=== PATIENT | male | born 1950 | race Caucasian/White ===

== ENCOUNTER 2019-05-21 14:13 | Inpatient (IN) | payer MEDICARE, SELFPAY ==
[2019-05-21] VITALS (9 sets, daily range): BP systolic 114–126; BP diastolic 59–81; PULSE 100–116; RESP 15–26; TEMP 36.6–37.8; O2SAT 92–96; BMI 22.6
--- NOTE | ~2019-05-21 | CT_ITS ---
EXAMINATION: CT abdomen pelvis w con EXAM DATE: 05/21/2019 19:53 INDICATION: Low abdominal pain, diverticulitis. TECHNIQUE: Spiral CT of the abdomen and pelvis was performed following intravenous injection of 100 m L Omnipaque 350. Axial, coronal and sagittal images were reviewed. The dose-length product (DLP) fo r this examination was 549.44 mGy-cm. The exposure was tailored according to patient size (auto mA e xposure control), and iterative reconstruction (ASIR) was used as additional dose reduction technique . Comparison is made to prior examination from 07/12/2012. FINDINGS: Benign subcentimeter right liver lobe hypodensity not significantly changed. Spleen, pancre as, adrenal glands are unremarkable. Gallbladder is unremarkable. No biliary obstruction. Portal a nd splenic veins are patent. Kidneys enhance symmetrically. There is no hydronephrosis. Multiple kim bcentimeter kidney hypodensities consistent with cysts. The prostate is unremarkable. The bladder i s unremarkable. There is no retroperitoneal or pelvic lymphadenopathy. There is mild to moderate s cattered arteriosclerotic disease. Small umbilical fat-containing hernia. There is moderate sigmoid diverticulosis with extensive adjacent inflammation and small foci of gas w ithin the mesentery, consistent with microperforation. No rim-enhancing drainable abscess. The append ix is normal. There is small sliding gastroesophageal hiatal hernia. There is expected amount of co lonic stool. The heart is normal in size. There are no pericardial or pleural effusions. The lung bases are unremarkable. There are no osteoblastic or osteolytic lesions identified. IMPRESSION: 1. Acute sigmoid diverticulitis with microperforation. 2. There is basilar subsegmental atelectasis. Reviewed, dictated and finalized at location A.
--- NOTE | ~2019-05-21 | CT_ITS ---
EXAMINATION: CT abdomen pelvis w con INDICATION: Perforated sigmoid diverticulitis with increasing leukocytosis in the face of antibiotics TECHNIQUE: Computed tomographic images of the abdomen and pelvis were obtained after the administrati on of 100 cc of Omnipaque 350 intravenous contrast. The dose-length product (DLP) was 452.65 mGy-cm. Automated exposure control and iterative reconstruction technique were employed. COMPARISON: 05/21/2019 07/12/2012 FINDINGS: Minimal dependent atelectasis is present in the lung bases. The heart size is normal. There is a moderate-sized sliding hiatal hernia. A 9 mm low-attenuation of the right hepatic lobe is not s ignificantly changed since 2012, most consistent with a benign lesion. The spleen, pancreas, gallblad albert, and adrenal glands are normal. Cysts of the kidneys measure up to 12 mm on the right. Again note d are diverticula of the sigmoid colon with an area of wall thickening in the mid sigmoid colon. Ther e is an approximately 4.3 x 3.2 cm gas-containing perisigmoid fluid collection. Edematous stranding o f the perisigmoid fat and adjacent to the fluid collection has increased. An approximately 5.2 x 1.9 cm bilobed fluid collection is seen at the anterior/superior aspect of the urinary bladder. Additiona l smaller adjacent pelvic fluid collections are noted. There is mild retroperitoneal lymphadenopathy which may be reactive. The appendix is normal. There is calcified atherosclerosis of the aorta and ma ny of the other arteries. There is severe lumbar spondylosis. IMPRESSION: 1. Perforated sigmoid diverticulitis with development of a perisigmoid abscess and several smaller ad jacent pelvic abscesses. Reviewed, dictated and finalized at location A. IMPRESSION: 1. Perforated sigmoid diverticulitis with development of a perisigmoid abscess and several smaller adjacent pelvic abscesses.
--- NOTE | ~2019-05-21 | CT_ITS ---
EXAMINATION: CT guide absc cath placement DATE: 05/28/2019 14:32 INDICATION: Peritoneal abscess along the sigmoid colon. TECHNIQUE: The procedure including the risks and benefits was discussed with the patient. Risks discu ssed included bleeding and infection. The patient understood the risks and benefits and agreed to pro ceed. The patient was confirmed to be receiving appropriate antibiotic coverage. The skin overlying the abdomen was prepped and draped in usual sterile fashion. Anesthetic was administered with 1% lid ocaine subcutaneously. Utilizing Seldinger technique an 18-gauge trocar guide needle was inserted int o peritoneal gas and fluid containing abscess in the right hemipelvis utilizing CT guidance. The troc ar was removed and a J-wire advanced through the needle into the fluid collection with appropriate po sitioning within the fluid collection confirmed with CT images. The guide needle was removed over the wire, the tract serially dilated from 6 Fr to 10 Fr and a 10 Fr venous catheter placed. Following co nfirmation of positioning by CT the the pigtail tip was locked and the wire was removed. The catheter was stitched to the skin with suture. Antibiotic ointment and a sterile dressing were applied. Follo wing collection of a sample for Gram stain and cultures, the catheter was attached to suction drainag e. There were no immediate complications. The dose-length product was 167.72 mGy-cm. FINDINGS: CT images demonstrate the catheter within the loculated gas and fluid collection in the rig ht hemipelvis. 18 mL opaque pinkish-pfeiffer fluid fluid was aspirated for testing. IMPRESSION: 1. Successful CT-guided abscess drainage. 2. 18 mL fluid was sent for aerobic and anaerobic cultures. 3. The catheter will be managed by Dr. Cleveland. Reviewed, dictated and finalized at location A.
[2019-05-21 14:46] LABS: Hematocrit 45.2 % (42.0-52.0); Hemoglobin 14.6 g/dL (14.0-18.0); Mean Corpuscular HGB Conc 32.3 g/dl (32-36); Mean Platelet Volume 10.6 fl (7.4-10.4); Platelet Count Result 199 k/mm3 (150-375); Red Blood Count 4.86 M/mm3 (4.6-6.20); Red Cell Distribution Width 13.4 % (11.5-14.5); White Blood Count 28.2 K/mm3 (4.5-10.0)
[2019-05-21 14:59] LABS: Alanine Aminotransferase 27 U/L (4-50); Albumin Level 4.3 g/dL (3.5-5.1); Alkaline Phosphatase 73 U/L (38-126); Aspartate Amino Transferase 23 U/L (17-59); Bilirubin,Total 0.9 mg/dL (0.2-1.3); Blood Urea Nitrogen 21 mg/dL (9-20); Calcium 8.8 mg/dL (8.4-10.2); Carbon Dioxide 29 mmol/L (22-30); Chloride 97 mmol/L (98-107); Estimated CRCL calculation 60 ml/min; Estimated Glomerular Filt Rate 60; Glucose 124 mg/dL (75-110); Lipase 22 U/L (23-300); Potassium 3.8 mmol/L (3.4-5.0); Sodium 134 mmol/L (137-145)
[2019-05-21 15:18] LABS: Band Neutrophils Percent 6 % (0-6); Lymphocytes Absolute Manual 3.66 K/mm3 (1.1-4.5); Monocytes Absolute Manual 0.84 K/mm3 (0.1-0.90); Monocytes Percent Manual 3 % (3-9); Neutrophils Absolute Manual 23.68 K/mm3 (1.3-6.7); Neutrophils Percent Manual 78 % (46-73); Platelet Estimate Adequate (Adequate); Total Cells Counted 100
--- NOTE | 2019-05-21 18:58 | ED.ABDPAIN ---
HPI - Abdominal Pain General Chief Complaint: Abdominal Pain Stated Complaint: stomach ache Time Seen by Provider: 05/21/19 18:57 History of Present Illness HPI narrative: Pt is a 69 y/o male who presents to the ED with c/o lower abdominal pain that began a week ago. He notes that his pain initially began in his RLQ abdomen. Pt reports a similar episode. Pt also reports chills and nausea, but denies fever and vomiting. MD elicited complaint: abdominal pain Onset (ago): week(s) (1) Pain Consistency: constant Location: other (lower) Associated symptoms: nausea and chills Related Data Home Medications Medication Instructions Recorded Confirmed aspirin 81 mg PO DAILY 05/21/19 05/21/19 diltiazem HCl 30 mg PO QID 05/21/19 05/21/19 isosorbide mononitrate 60 mg PO DAILY 05/21/19 05/21/19 metoprolol tartrate 25 mg PO BID 05/21/19 05/21/19 nitroglycerin [Nitrostat] 0.4 mg SUBLINGUAL ONCE PRN 05/21/19 05/21/19 prednisone 2.5 mg PO DAILY 05/21/19 05/21/19 Allergies Allergy/AdvReac Type Severity Reaction Status Date / Time No Known Allergies Allergy Verified 05/22/19 15:27 Review of Systems Review of Systems: All systems reviewed & are unremarkable except as noted in HPI and below Constitutional: Constitutional: Reports chills and Denies fever(s) Gastrointestinal: Gastrointestinal: Reports abdominal pain (lower), Reports nausea and Denies vomiting PMFSH Past Medical History Medical History GERD (gastroesophageal reflux disease) History of angina Hyperlipidemia Myocardial infarction Rheumatoid arthritis Treated with Remicade infusions and takes daily low-dose prednisone. Surgical History Surgical History H/O colonoscopy History of cardiac catheterization Hx of CABG triple bypass Family History Family History Mother Carcinoma of colon Father Family history of malignant melanoma Sibling Acute myocardial infarction Social History Social History (System 05/22/19 @ 15:27 by Chitra Mitchell) Smoking status: Light tobacco smoker Alcohol intake: current Substance use: never Living arrangements: alone Occupation/Education: retired Gender identity (if verbalized by the patient): Male Spiritual care concerns: No Agree to blood products: Yes Exam Narrative: Exam Narrative: General appearance: Well-developed, well-nourished, no family member at the bedside Skin: Normal color Head: Normocephalic, nontraumatic Eyes: Clear conjunctiva ENT: Oropharynx normal, ears normal, nose normal Neck: Supple, nontender Chest and respiratory: Airway patent, no respiratory distress, no accessory muscle use Heart: Regular rate/rhythm Abdomen: Soft, diffuse generalized tenderness, distention, no organomegaly, quiet bowel sounds Vascular: Normal peripheral pulses, normal capillary refill. Musculoskeletal: Normal range of motion, nontender back Neurologic: Alert and oriented ?3, FAMILY SUPPORT SPECIALIST is normal as tested, no gross motor deficit Course Course Emergency Course: Improving/stable Consultations Consultation #1: Discussed case with Dr. Carlin (Hospitalist). Accepts admission. Date: 05/21/19 Time: 20:30 Vital Signs Vital signs: Vital Signs Temperature 37.7 C H 05/21/19 14:28 Pulse Rate 115 H 05/21/19 14:28 Respiratory Rate 18 05/21/19 14:28 Blood Pressure 120/65 05/21/19 14:28 Pulse Oximetry 93 05/21/19 14:28 Temperature 36.8 C 05/24/19 06:00 Pulse Rate 84 05/24/19 10:18 Respiratory Rate 18 05/24/19 08:00 Blood Pressure 115/73 05/24/19
[2019-05-21 19:12] LABS: Add Urine Microscopic? YES; Appearance Urine Clear (Clear); Bacteria Urine Trace /hpf; Bilirubin Urine Negative (Negative); Blood Urine 3+ (Negative); Color Urine Yellow (Yellow); Glucose Urine UA Negative (Negative); Ketones Urine Negative (Negative); Leukocyte Esterase Ur Negative LEU/UL (Negative); Mucus Urine Heavy /lpf; Nitrate Urine Negative (Negative); Protein Urine Negative (Negative); Specific Grav Ur 1.025 (1.001-1.035); Urobilinogen Urine Negative mg/dL (<2.0); WBC Urine 0-3 /hpf
[2019-05-21] MEDS: ONDANSETRON INJ 4 MG/2 ML VIAL IV PUSH (19:16)
[2019-05-21] MEDS: HYDROMORPHONE HCL 1 MG/ML INJ 0.5 MG IV PUSH (19:17)
[2019-05-21] MEDS: SODIUM CHLORIDE 0.9% IV 1,000 ML 999 ML IV CONT (19:19)
--- NOTE | 2019-05-21 19:37 | PC.NURSE ---
assumed care of pt at this time. report from RICHARD rain
--- NOTE | 2019-05-21 19:47 | PC.NURSE ---
pt down to ct
--- NOTE | 2019-05-21 19:57 | PC.NURSE ---
pt reports cp on the left side of there chest. pt reports squeezing and rates pain at a 4 edp notified no further orders at this time.
--- NOTE | 2019-05-21 20:30 | PC.NURSE ---
pt placed on 2.0 L NC due to pulse ox being 88%
--- NOTE | 2019-05-21 22:35 | ADMGEN ---
This patient, Tomy Castellanos, was admitted to [facility] Surg Room 300-01. Patient/family oriented to hospital policies and general routines including ID bracelet, bed and alarms, visiting hours, pain management, procedures, bathroom and other care routines, personal items, smoking policy, room service/diet, and visiting hours. Valuables list has been completed. Information on how to activate the Rapid Response Team has been discussed. Patient/Family are encouraged to report perceived risks to care and to ask questions if they do not understand what they are told or what they should do.
[2019-05-21] MEDS: LACTATED RINGERS 1,000 ML 150 ML IV CONT (22:42)
[2019-05-22] MEDS: LACTATED RINGERS 1,000 ML 150 ML IV CONT ×2 (05:18→12:28)
[2019-05-22 06:00] VITALS: BP 117/65; PULSE 100; RESP 16; TEMP 37.2; O2SAT 96
[2019-05-22 06:15] LABS: Basophils Percent Auto 0.2 % (0.2-1.2); Hematocrit 42.3 % (42.0-52.0); Hemoglobin 13.2 g/dL (14.0-18.0); Immature Granulocyte Absolute 0.17 K/mm3 (0.00-0.031); Immature Granulocyte Percent A 0.7 % (0-0.5); Lymphocytes Absolute Auto 2.55 K/mm3 (0.9-3.2); Mean Corpuscular HGB Conc 31.2 g/dl (32-36); Mean Corpuscular Hemoglobin 29.3 pg (26-34); Mean Platelet Volume 11.1 fl (7.4-10.4); Monocytes Absolute Auto 1.2 K/mm3 (0.1-0.6); Monocytes Percent Auto 5.3 % (2.6-8.5); Neutrophils Absolute Auto 19.2 K/mm3 (1.3-6.7); Neutrophils Percent Auto 82.8 % (45.5-73.1); Platelet Count Result 172 k/mm3 (150-375); Red Cell Distribution Width 13.5 % (11.5-14.5); White Blood Count 23.2 K/mm3 (4.5-10.0)
--- NOTE | 2019-05-22 12:47 | PM.IMHP ---
H&P: HPI History of Present Illness Chief complaint: perforated diverticulitis leukocytosis Narrative: Date and Time of Service of History & Physical: May 22, 2019 at 12:25 p.m.. Date and Time of Admission Order: May 21, 2019 at 9:00 p.m.. Chief Complaint: Abdominal pain x1 week with nausea, vomiting and fever. History of Present Illness: Tomy Castellanos is a 69 year old male with known coronary artery disease, hyperlipidemia, rheumatoid arthritis and previous history of diverticulitis who presented to the emergency room with 1 week history of right lower quadrant abdominal pain. Patient reports pain was initially intermittent. Pain worsened over the last week particularly this past Tuesday, Tuesday and Tuesday. Patient reports pain was so severe he decided come in to the emergency room. He did note dry heaves on Tuesday. He has not had a bowel movement this past . He does report fever up to 100.0. No urinary symptoms. He does mention having had 2 previous episodes of diverticulitis as an outpatient with the last being within the last 2 years. Pain is still present now but no current nausea or vomiting. No chest pain. No shortness of breath. No urinary symptoms. No headache or dizziness. Review of Systems Review of Systems: All systems reviewed & are unremarkable except as noted in HPI and below Constitutional: Constitutional: Reports fever(s) Eyes: Eyes: Denies blurry vision and Denies diplopia ENT: Denies dysphagia, Denies nasal congestion and Denies nasal discharge Cardiovascular: Cardiovascular: Denies chest pain Respiratory: Respiratory: Denies dyspnea Gastrointestinal: Gastrointestinal: Reports abdominal pain (RLQ), Denies diarrhea, Reports nausea and Reports vomiting Genitourinary: Genitourinary: Denies hematuria, Denies dysuria and Denies urinary frequency Musculoskeletal: Musculoskeletal: Reports no additional musculoskeletal complaints Integumentary/Breasts: Skin/Breast: Denies rash Neurologic: Denies headache(s) Psychiatric: Psychiatric: Denies anxiety, Denies confusion and Denies depression Endocrine: Endocrine: Reports no additional endocrine complaints Hematologic/Lymphatic: Hematologic/Lymphatic: Reports no additional hematologic/lymphatic complaints Allergic/Immunologic: Allergic/Immunologic: Reports no additional allergic/immunologic complaints [facility] Past Medical History Medical History GERD (gastroesophageal reflux disease) History of angina Hyperlipidemia Myocardial infarction 2007 Rheumatoid arthritis Surgical History Surgical History H/O colonoscopy History of cardiac catheterization Hx of CABG triple bypass Family History Family History Mother Carcinoma of colon Father Family history of malignant melanoma Sibling Acute myocardial infarction Social History Social History Social History: Patient is . He is a full code. He is a former smoker but cannot tell me how much or for how long he smoked. He also has previous alcohol use but will not quantify. Smoking status: Former smoker Tobacco type: cigarettes Smoking end date: 03/14/14 Alcohol intake: former Substance use: never Living arrangements: alone Occupation/Education: retired Additional occupation/education comments: He is retired from [employer]. Gender identity (if verbalized by the patient): Male Spiritual care concerns: No Agree to blood products: Yes Meds Home Medications and Allergies Home Medications Medication Instructions Recorded Confirmed Type aspirin 81 mg PO DAILY 05/21/19 05/21/19 History diltiazem HCl 30 mg PO QID 05/21/19 05/21/19 History isosorbide mononitrate 60 mg PO DAILY 05/21/19 05/21/19 History metoprolol ta
[2019-05-22 14:00] VITALS: BP 118/65; PULSE 104; RESP 16; TEMP 37.6; O2SAT 93
--- NOTE | 2019-05-22 14:34 | PM.CNGS ---
Assessment and Plan Assessment and plan (1) Diverticulitis of colon with perforation: Qualifiers: Diverticulitis bleeding: unspecified bleeding status Qualified Code(s): K57.20 - Diverticulitis of large intestine with perforation and abscess without bleeding Code(s): K57.20 - Diverticulitis of large intestine with perforation and abscess without bleeding Status: Acute Assessment and Plan: CT scan reviewed and discussed with the patient. He has evidence sigmoid diverticulitis with micro perforation. This is his 3rd episode of diverticulitis, with the most recent episode over 2 and half years ago. The patient seems to be clinically improving with current treatment. Would continue with IV antibiotics, IV fluids, and analgesics at this time. Will keep the patient NPO on bowel rest for today and reassess him tomorrow. I discussed the pathophysiology of this disease process with the patient. No indication for urgent surgical intervention at this time. Although, we do need to consider that he is at risk for impaired healing and worsening infection due to the immunosuppressant therapy. I discussed with the patient that at times if this does not improve with antibiotic therapy, then he may require a sigmoidectomy more urgently, which would put him at a higher risk for an ostomy. We will continue to monitor the patient with serial abdominal exams, labs, and imaging if needed. Considering he has not had a colonoscopy in at least 5 years and has a family history of colon cancer with now an acute episode of diverticulitis, this patient would benefit from a colonoscopy once the acute diverticulitis has healed in about 4-6 weeks. Plan was discussed with the patient and all questions were answered. Thank you for allowing me to evaluate the patient in consultation and we will continue to follow along with you. (2) Long-term use of immunosuppressant medication: Code(s): Z79.899 - Other terminal superintendent (current) drug therapy Status: Acute Assessment and Plan: Last Remicade infusion was 2 weeks ago. This may affect how he responds to the current treatment, but hopefully he continues to improve. Continue to hold the low-dose prednisone for now. (3) Rheumatoid arthritis: Qualifiers: Rheumatoid arthritis location: unspecified site Rheumatoid factor presence: unspecified presence Qualified Code(s): M06.9 - Rheumatoid arthritis, unspecified Code(s): M06.9 - Rheumatoid arthritis, unspecified Status: Acute (4) CAD (coronary artery disease): Qualifiers: Associated angina: without angina Coronary Disease-Associated Artery/Lesion type: [place] artery [place] vs. transplanted heart: [place] heart Qualified Code(s): I25.10 - Atherosclerotic heart disease of [place] coronary artery without angina pectoris Code(s): I25.10 - Atherosclerotic heart disease of [place] coronary artery without angina pectoris Status: Acute (5) Leukocytosis: Qualifiers: Leukocytosis type: unspecified Qualified Code(s): D72.829 - Elevated white blood cell count, unspecified Code(s): D72.829 - Elevated white blood cell count, unspecified Status: Acute Assessment and Plan: Due to diverticulitis as mentioned above. WBC down to 23,200 today. Continue IV abx. (6) Hyperlipidemia: Code(s): E78.5 - Hyperlipidemia, unspecified Status: Acute (7) GERD (gastroesophageal reflux disease): Qualifiers: Esophagitis presence: esophagitis presence not specified Qualified Code(s): K21.9 - Gastro-esophageal reflux disease without esophagitis Code(s): K21.9 - Gastro-esophageal reflux disease without esophagitis Status: Acute Additional Plan Discussed the patient's case and plan of care with Dr. Cleveland. History of Present Illness Consult details Consult date: 05/22/19 Reason for consult: other (Sigmoid diverticulitis with microperforation) Requesting ph
[2019-05-22] MEDS: FAMOTIDINE 20 MG/2 ML VIAL IV PUSH ×2 (14:56→21:45)
[2019-05-22] MEDS: LACTATED RINGERS 1,000 ML 100 ML IV CONT (21:42)
[2019-05-22 22:00] VITALS: BP 120/75; PULSE 99; RESP 16; TEMP 37.2; O2SAT 91
[2019-05-23 06:00] VITALS: BP 118/70; PULSE 88; RESP 16; TEMP 36.8; O2SAT 93
[2019-05-23 06:11] LABS: Basophils Absolute Auto 0.1 K/mm3 (0.0-0.1); Basophils Percent Auto 0.3 % (0.2-1.2); Eosinophils Absolute Auto 0.1 K/mm3 (0-0.3); Eosinophils Percent Auto 0.4 % (0-4.4); Hematocrit 41.7 % (42.0-52.0); Hemoglobin 13.3 g/dL (14.0-18.0); Immature Granulocyte Absolute 0.07 K/mm3 (0.00-0.031); Immature Granulocyte Percent A 0.4 % (0-0.5); Lymphocytes Absolute Auto 2.43 K/mm3 (0.9-3.2); Lymphocytes Percent Auto 12.8 % (18.3-44.2); Mean Corpuscular HGB Conc 31.9 g/dl (32-36); Mean Corpuscular Hemoglobin 29.9 pg (26-34); Mean Corpuscular Volume 93.7 fl (80-100); Mean Platelet Volume 11.7 fl (7.4-10.4); Monocytes Absolute Auto 1.2 K/mm3 (0.1-0.6); Monocytes Percent Auto 6.3 % (2.6-8.5); Neutrophils Absolute Auto 15.2 K/mm3 (1.3-6.7); Neutrophils Percent Auto 79.8 % (45.5-73.1); Platelet Count Result 170 k/mm3 (150-375); Red Blood Count 4.45 M/mm3 (4.6-6.20); Red Cell Distribution Width 13.2 % (11.5-14.5)
[2019-05-23 07:35] LABS: Alanine Aminotransferase 20 U/L (4-50); Albumin Level 3.3 g/dL (3.5-5.1); Alkaline Phosphatase 115 U/L (38-126); Aspartate Amino Transferase 32 U/L (17-59); Bilirubin,Total 0.9 mg/dL (0.2-1.3); Blood Urea Nitrogen 15 mg/dL (9-20); Calcium 8.3 mg/dL (8.4-10.2); Carbon Dioxide 27 mmol/L (22-30); Chloride 100 mmol/L (98-107); Estimated CRCL calculation 77 ml/min; Estimated Glomerular Filt Rate > 60; Glucose 81 mg/dL (75-110); Potassium 3.7 mmol/L (3.4-5.0); Sodium 132 mmol/L (137-145)
[2019-05-23] MEDS: LACTATED RINGERS 1,000 ML 100 ML IV CONT ×2 (08:09→16:51)
[2019-05-23] MEDS: FAMOTIDINE 20 MG/2 ML VIAL IV PUSH ×2 (08:10→20:07)
--- NOTE | 2019-05-23 11:49 | PM.PNGS ---
Progress Note: A&P Assessment and Plan (1) Diverticulitis of colon with perforation: Qualifiers: Diverticulitis bleeding: unspecified bleeding status Qualified Code(s): K57.20 - Diverticulitis of large intestine with perforation and abscess without bleeding Code(s): K57.20 - Diverticulitis of large intestine with perforation and abscess without bleeding Status: Acute Assessment and Plan: Patient is clinically improving. Bowels are moving. WBC down to 19,000 and afebrile today. Pain is less, but still pretty tender on exam. Will allow the patient to have clear liquids today. Continue IV antibiotics. Encouraged ambulation in the halls. (2) Long-term use of immunosuppressant medication: Code(s): Z79.899 - Other predatory animal exterminator (current) drug therapy Status: Acute Assessment and Plan: Last Remicade infusion was 2 weeks ago. This may affect how he responds to the current treatment, but hopefully he continues to improve. Continue to hold the low-dose prednisone for now. (3) Rheumatoid arthritis: Qualifiers: Rheumatoid arthritis location: unspecified site Rheumatoid factor presence: unspecified presence Qualified Code(s): M06.9 - Rheumatoid arthritis, unspecified Code(s): M06.9 - Rheumatoid arthritis, unspecified Status: Acute (4) CAD (coronary artery disease): Qualifiers: Coronary Disease-Associated Artery/Lesion type: [place] artery [place] vs. transplanted heart: [place] heart Associated angina: without angina Qualified Code(s): I25.10 - Atherosclerotic heart disease of [place] coronary artery without angina pectoris Code(s): I25.10 - Atherosclerotic heart disease of [place] coronary artery without angina pectoris Status: Acute (5) Leukocytosis: Qualifiers: Leukocytosis type: unspecified Qualified Code(s): D72.829 - Elevated white blood cell count, unspecified Code(s): D72.829 - Elevated white blood cell count, unspecified Status: Acute Assessment and Plan: Due to diverticulitis as mentioned above. WBC down to 23,200 today. Continue IV abx. (6) Hyperlipidemia: Code(s): E78.5 - Hyperlipidemia, unspecified Status: Acute (7) GERD (gastroesophageal reflux disease): Qualifiers: Esophagitis presence: esophagitis presence not specified Qualified Code(s): K21.9 - Gastro-esophageal reflux disease without esophagitis Code(s): K21.9 - Gastro-esophageal reflux disease without esophagitis Status: Acute Additional Plan Discussed the patient's case and plan of care with Dr. Cleveland. Subjective Subjective Date/Time Seen: 05/23/19 11:49 Patient reports: no new complaints, feels better, pain is less, flatus and bowel movement Interval history: Patient seen and examined. Reports feeling well today. Pain has improved and he reports for the first time in days he is able to sit up without abdominal pain. Reports lots of flatus with a small formed BM this morning. Denies nausea or vomiting. Tolerating the clear liquid tray he had this morning. Reports bloating has improved. No other complaints at this time. Review of Systems Review of Systems: All systems reviewed & are unremarkable except as noted in HPI and below Exam Const: General: cooperative, comfortable, no acute distress and alert Orientation/consciousness: patient oriented x3 GI: Inspection: normal to inspection and non-distended GI Palp: Yes Soft to palpation, Yes Tenderness to palpation present (GI) (lower abdomen, but reportedly less tender), Yes Guarding due to palpation present (GI) (lower abdomen), No Hernia present, No Palpable mass present and No Rebound tenderness present Auscultation: normal bowel sounds Skin: General skin exam: normal color Neuro: General: no focal motor deficits Extrem: General: normal to inspection, capillary refill normal, no clubbing, cyanosis or edema, no calf tenderness and no edema Objec
--- NOTE | 2019-05-23 11:58 | PCNSR ---
On 05/23/19, the student, Claudia Lebron, provided care and completed [facility] documentation on this patient. I have reviewed the student's documentation and agree with the findings.
--- NOTE | 2019-05-23 13:11 | PM.IMPN ---
Progress Note: A&P Assessment and Plan (1) Diverticulitis of colon with perforation: Qualifiers: Diverticulitis bleeding: unspecified bleeding status Qualified Code(s): K57.20 - Diverticulitis of large intestine with perforation and abscess without bleeding Code(s): K57.20 - Diverticulitis of large intestine with perforation and abscess without bleeding Status: Acute Assessment and Plan: CT scan abdomen/pelvis with acute sigmoid diverticulitis with microperforation. Moderate amount of sigmoid diverticulosis is noted. General surgery consulted and appreciate input. Started on clear liquids today. Remains on IV Zosyn. WBC is decreased to 19.0 today. Continue IV Dilaudid as needed for pain. Continue to monitor. (2) CAD (coronary artery disease): Qualifiers: Associated angina: without angina Coronary Disease-Associated Artery/Lesion type: [place] artery [place] vs. transplanted heart: [place] heart Qualified Code(s): I25.10 - Atherosclerotic heart disease of [place] coronary artery without angina pectoris Code(s): I25.10 - Atherosclerotic heart disease of [place] coronary artery without angina pectoris Status: Acute Assessment and Plan: Remains stable without current acute symptoms. Blood pressure still low normal. Will continue to hold Imdur, diltiazem and metoprolol for now. Continue to hold ASA. Will monitor. Restart medications if and when needed. (3) GERD (gastroesophageal reflux disease): Qualifiers: Esophagitis presence: esophagitis presence not specified Qualified Code(s): K21.9 - Gastro-esophageal reflux disease without esophagitis Code(s): K21.9 - Gastro-esophageal reflux disease without esophagitis Status: Acute Assessment and Plan: Continue IV Pepcid. (4) Rheumatoid arthritis: Qualifiers: Rheumatoid arthritis location: unspecified site Rheumatoid factor presence: unspecified presence Qualified Code(s): M06.9 - Rheumatoid arthritis, unspecified Code(s): M06.9 - Rheumatoid arthritis, unspecified Status: Acute Assessment and Plan: On very low-dose prednisone 2.5 mg daily. Will continue to hold for now. If needed, can give IV steroids. (5) DVT prophylaxis: Code(s): Z29.9 - Encounter for prophylactic measures, unspecified Status: Acute Assessment and Plan: SCDs. Time Spent With Patient Time with patient: 15 - 25 minutes Subjective Date/time seen: 05/23/19 13:11 Interval history: Date of Service: 05/23/2019. Admitted diverticulitis with microperforation. Doing better today. Still has some abdominal pain. No nausea or vomiting. No chest pain. No shortness of breath. Review of Systems Review of Systems: Narrative: Feeling better. ENT: Denies dysphagia Cardiovascular: Cardiovascular: Denies chest pain Respiratory: Respiratory: Denies dyspnea Gastrointestinal: Gastrointestinal: Reports abdominal pain (Decreasing), Denies nausea and Denies vomiting Genitourinary: Genitourinary: Reports no additional male genitourinary complaints Musculoskeletal: Musculoskeletal: Reports no additional musculoskeletal complaints Integumentary/Breasts: Skin/Breast: Denies rash Neurologic: Denies headache(s) Psychiatric: Psychiatric: Denies anxiety and Denies depression Exam Narrative: Exam Narrative: Awake and alert. Const: General: no acute distress HENMT: Mouth: Yes moist mucous membranes Neck: Neck: supple Lymphatic: lymphadenopathy not noted Resp: Auscultation: clear to auscultation bilaterally, no rales and no wheezes Cardio: Rate: regular rate Rhythm: regular rhythm GI: Inspection: non-distended GI Palp: Yes Soft to palpation and Yes Tenderness to palpation present (GI) (RLQ > LLQ) Auscultation: normal bowel sounds Skin: General skin exam: normal color Neuro: Cognition (Neuro): normal cognition Speech: normal speech Extrem: General: no edema
[2019-05-23 14:00] VITALS: BP 102/65; PULSE 100; RESP 20; TEMP 36.9; O2SAT 96
[2019-05-23 22:00] VITALS: BP 109/75; PULSE 84; RESP 16; TEMP 36.9; O2SAT 90
[2019-05-24] MEDS: LACTATED RINGERS 1,000 ML 100 ML IV CONT ×2 (02:54→14:44)
[2019-05-24 06:00] VITALS: BP 115/73; PULSE 86; RESP 18; TEMP 36.8; O2SAT 93
[2019-05-24 06:42] LABS: Hematocrit 40.2 % (42.0-52.0); Mean Corpuscular HGB Conc 32.3 g/dl (32-36); Mean Corpuscular Volume 92.8 fl (80-100); Mean Platelet Volume 11.7 fl (7.4-10.4); Platelet Count Result 183 k/mm3 (150-375); Red Blood Count 4.33 M/mm3 (4.6-6.20); Red Cell Distribution Width 13.1 % (11.5-14.5); White Blood Count 12.6 K/mm3 (4.5-10.0)
[2019-05-24 07:01] LABS: Blood Urea Nitrogen 13 mg/dL (9-20); Calcium 8.1 mg/dL (8.4-10.2); Carbon Dioxide 27 mmol/L (22-30); Chloride 100 mmol/L (98-107); Estimated CRCL calculation 70 ml/min; Estimated Glomerular Filt Rate > 60; Glucose 97 mg/dL (75-110); Potassium 3.5 mmol/L (3.4-5.0); Sodium 135 mmol/L (137-145)
[2019-05-24 08:00] VITALS: PULSE 84; RESP 18; O2SAT 93
[2019-05-24] MEDS: FAMOTIDINE 20 MG/2 ML VIAL IV PUSH ×2 (08:43→21:19)
--- NOTE | 2019-05-24 10:14 | PM.IMPN ---
Progress Note: A&P Assessment and Plan (1) Diverticulitis of colon with perforation: Qualifiers: Diverticulitis bleeding: unspecified bleeding status Qualified Code(s): K57.20 - Diverticulitis of large intestine with perforation and abscess without bleeding Code(s): K57.20 - Diverticulitis of large intestine with perforation and abscess without bleeding Status: Acute Assessment and Plan: CT scan abdomen/pelvis with acute sigmoid diverticulitis with microperforation. Moderate amount of sigmoid diverticulosis is noted. General surgery consulted and appreciate input. Now on full liquids. WBC decreased to 12.6 today. Continue IV Zosyn. Does have IV Dilaudid as needed for pain. Discussed with Dr. [place] today. Will hopefully be able to continue to advance diet. Possible discharge tomorrow if stable. (2) CAD (coronary artery disease): Qualifiers: Associated angina: without angina Coronary Disease-Associated Artery/Lesion type: [place] artery [place] vs. transplanted heart: [place] heart Qualified Code(s): I25.10 - Atherosclerotic heart disease of [place] coronary artery without angina pectoris Code(s): I25.10 - Atherosclerotic heart disease of [place] coronary artery without angina pectoris Status: Acute Assessment and Plan: No acute issue. Stable. Discussed with patient. He reports he does not always take diltiazem and metoprolol if blood pressure lower. Will resume Imdur. Continue to hold ASA. Continue to monitor. (3) GERD (gastroesophageal reflux disease): Qualifiers: Esophagitis presence: esophagitis presence not specified Qualified Code(s): K21.9 - Gastro-esophageal reflux disease without esophagitis Code(s): K21.9 - Gastro-esophageal reflux disease without esophagitis Status: Acute Assessment and Plan: Continue IV Pepcid. (4) Rheumatoid arthritis: Qualifiers: Rheumatoid arthritis location: unspecified site Rheumatoid factor presence: unspecified presence Qualified Code(s): M06.9 - Rheumatoid arthritis, unspecified Code(s): M06.9 - Rheumatoid arthritis, unspecified Status: Acute Assessment and Plan: On very low-dose prednisone 2.5 mg daily. Will continue to hold for now. Does also use Remicade last infusion 2 weeks ago. Will need to hold Remicade until infection completely cleared. (5) DVT prophylaxis: Code(s): Z29.9 - Encounter for prophylactic measures, unspecified Status: Acute Assessment and Plan: SCDs. Time Spent With Patient Time with patient: 15 - 25 minutes Subjective Date/time seen: 05/24/19 10:14 Interval history: Date of Service: 05/24/2019. Admitted diverticulitis with microperforation. Feeling better. Lower abdominal pain improved. Did have bowel movement today. No chest pain. No shortness of breath. Review of Systems Review of Systems: Narrative: Feeling better. Constitutional: Constitutional: Reports fever(s) ENT: Denies dysphagia, Denies nasal congestion and Denies nasal discharge Cardiovascular: Cardiovascular: Denies chest pain Respiratory: Respiratory: Denies dyspnea Gastrointestinal: Gastrointestinal: Reports GI cramping (Lower), Denies diarrhea, Denies nausea and Denies vomiting Genitourinary: Genitourinary: Denies hematuria, Denies dysuria and Denies urinary frequency Musculoskeletal: Musculoskeletal: Reports no additional musculoskeletal complaints Integumentary/Breasts: Skin/Breast: Denies rash Neurologic: Denies headache(s) Psychiatric: Psychiatric: Denies anxiety, Denies confusion and Denies depression Exam Narrative: Exam Narrative: Awake and alert. Const: General: no acute distress HENMT: Mouth: Yes moist mucous membranes Neck: Neck: supple Lymphatic: lymphadenopathy not noted Resp: Auscultation: clear to auscultation bilaterally, no rales and no wheezes Cardio: Rate: regular rate Rhythm: regular rhythm GI
[2019-05-24 10:18] VITALS: PULSE 84
[2019-05-24] MEDS: METOPROLOL TARTRATE 25 MG TABLET PO ×2 (10:18→21:18)
[2019-05-24 14:00] VITALS: BP 118/79; PULSE 73; RESP 18; TEMP 36.8; O2SAT 93
--- NOTE | 2019-05-24 15:41 | PM.PNGS ---
Progress Note: A&P Assessment and Plan (1) Diverticulitis of colon with perforation: Qualifiers: Diverticulitis bleeding: unspecified bleeding status Qualified Code(s): K57.20 - Diverticulitis of large intestine with perforation and abscess without bleeding Code(s): K57.20 - Diverticulitis of large intestine with perforation and abscess without bleeding Status: Acute Assessment and Plan: Patient is clinically improving. Bowels are moving. WBC down to 12,000 and afebrile today. Pain is less, and less tender on exam. Will allow the patient to have full liquids today. Continue IV antibiotics. Encouraged ambulation in the halls. 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 This may affect how he responds to the current treatment, but hopefully he continues to improve. Continue to hold the low-dose prednisone for now. Discussed with patient today that we would hold both of these until were sure that he is completely free of issues with this diverticulitis. He knows to check with us before taking is next dose of Remicade. (3) Rheumatoid arthritis: Qualifiers: Rheumatoid arthritis location: unspecified site Rheumatoid factor presence: unspecified presence Qualified Code(s): M06.9 - Rheumatoid arthritis, unspecified Code(s): M06.9 - Rheumatoid arthritis, unspecified Status: Acute (4) CAD (coronary artery disease): Qualifiers: Coronary Disease-Associated Artery/Lesion type: [place] artery [place] vs. transplanted heart: [place] heart Associated angina: without angina Qualified Code(s): I25.10 - Atherosclerotic heart disease of [place] coronary artery without angina pectoris Code(s): I25.10 - Atherosclerotic heart disease of [place] coronary artery without angina pectoris Status: Acute (5) Leukocytosis: Qualifiers: Leukocytosis type: unspecified Qualified Code(s): D72.829 - Elevated white blood cell count, unspecified Code(s): D72.829 - Elevated white blood cell count, unspecified Status: Acute Assessment and Plan: Due to diverticulitis as mentioned above. WBC down to 12,600 today. Continue IV abx. (6) Hyperlipidemia: Code(s): E78.5 - Hyperlipidemia, unspecified Status: Acute (7) GERD (gastroesophageal reflux disease): Qualifiers: Esophagitis presence: esophagitis presence not specified Qualified Code(s): K21.9 - Gastro-esophageal reflux disease without esophagitis Code(s): K21.9 - Gastro-esophageal reflux disease without esophagitis Status: Acute Additional Plan Discussed the patient's case and plan of care with Dr. Vasquez Subjective Subjective Date/Time Seen: 05/24/19 15:41 Patient states after starting full liquid diet this morning he did well after breakfast but then after some tomato soup he started having some lower abdominal cramping. He has been passing some flatus and had a small bowel movement this morning. Pain continues to gradually dissipate. He is able to walk in the hallway. Review of Systems Review of Systems: All systems reviewed & are unremarkable except as noted in HPI and below Constitutional: Constitutional: Reports as per HPI, Reports chills, Denies excessive sweating, Denies fatigue, Reports fever(s), Denies headache(s) and Denies weakness Eyes: Eyes: Denies change in vision and Denies loss of vision ENT: Denies dizziness and Denies headache(s) Cardiovascular: Cardiovascular: Denies chest pain, Denies syncope, Denies leg edema, Denies lightheadedness, Denies radiating jaw, neck or arm pain and Denies dyspnea Respiratory: Respiratory: Denies cough, Denies dyspnea and Denies wheezing Gastrointestinal: Gastrointestinal: Reports as per HPI, Reports abdominal pain (lower abdominal pain(Lt.>Rt.))
[2019-05-24] MEDS: ISOSORBIDE MONONITRATE 60 MG TAB.ER.24H PO (18:39)
[2019-05-24 21:18] VITALS: PULSE 76
[2019-05-24 22:00] VITALS: BP 106/64; PULSE 78; RESP 18; TEMP 36.4; O2SAT 95
[2019-05-25 06:00] VITALS: BP 114/65; PULSE 85; RESP 18; TEMP 37.4; O2SAT 90
[2019-05-25 06:00] LABS: Hematocrit 38.4 % (42.0-52.0); Hemoglobin 12.6 g/dL (14.0-18.0); Mean Corpuscular HGB Conc 32.8 g/dl (32-36); Mean Corpuscular Hemoglobin 29.7 pg (26-34); Mean Corpuscular Volume 90.6 fl (80-100); Platelet Count Result 202 k/mm3 (150-375); Red Blood Count 4.24 M/mm3 (4.6-6.20); Red Cell Distribution Width 13.1 % (11.5-14.5); White Blood Count 14.6 K/mm3 (4.5-10.0)
[2019-05-25 06:11] LABS: Blood Urea Nitrogen 12 mg/dL (9-20); Calcium 8.2 mg/dL (8.4-10.2); Carbon Dioxide 25 mmol/L (22-30); Chloride 101 mmol/L (98-107); Estimated CRCL calculation 86 ml/min; Estimated Glomerular Filt Rate > 60; Glucose 94 mg/dL (75-110); Potassium 3.6 mmol/L (3.4-5.0); Sodium 134 mmol/L (137-145)
[2019-05-25] MEDS: ISOSORBIDE MONONITRATE 60 MG TAB.ER.24H PO (08:06)
[2019-05-25 08:07] VITALS: PULSE 85
[2019-05-25] MEDS: METOPROLOL TARTRATE 25 MG TABLET PO ×2 (08:07→21:08)
[2019-05-25] MEDS: FAMOTIDINE 20 MG/2 ML VIAL IV PUSH (08:10)
--- NOTE | 2019-05-25 09:31 | PM.IMPN ---
Progress Note: A&P Assessment and Plan (1) Diverticulitis of colon with perforation: Qualifiers: Diverticulitis bleeding: unspecified bleeding status Qualified Code(s): K57.20 - Diverticulitis of large intestine with perforation and abscess without bleeding Code(s): K57.20 - Diverticulitis of large intestine with perforation and abscess without bleeding Status: Acute Assessment and Plan: CT scan abdomen/pelvis with acute sigmoid diverticulitis with microperforation. Moderate amount of sigmoid diverticulosis is noted. General surgery consulted and appreciate input. Discussed with Dr. Cleveland today. Will continue IV Zosyn today. Oral metronidazole started. Remains on full liquid. WBC did increase slightly to 14.6 today. IV Dilaudid remains available for pain. Possible discharge tomorrow if stable. (2) CAD (coronary artery disease): Qualifiers: Coronary Disease-Associated Artery/Lesion type: [place] artery [place] vs. transplanted heart: [place] heart Associated angina: without angina Qualified Code(s): I25.10 - Atherosclerotic heart disease of [place] coronary artery without angina pectoris Code(s): I25.10 - Atherosclerotic heart disease of [place] coronary artery without angina pectoris Status: Acute Assessment and Plan: No acute issue. Stable. Home Imdur and metoprolol have been resumed. Will resume home diltiazem. Blood pressure reviewed on 05/25/2019 and stable. (3) GERD (gastroesophageal reflux disease): Qualifiers: Esophagitis presence: esophagitis presence not specified Qualified Code(s): K21.9 - Gastro-esophageal reflux disease without esophagitis Code(s): K21.9 - Gastro-esophageal reflux disease without esophagitis Status: Acute Assessment and Plan: Continue Pepcid but transition to oral. (4) Rheumatoid arthritis: Qualifiers: Rheumatoid arthritis location: unspecified site Rheumatoid factor presence: unspecified presence Qualified Code(s): M06.9 - Rheumatoid arthritis, unspecified Code(s): M06.9 - Rheumatoid arthritis, unspecified Status: Acute Assessment and Plan: On very low-dose prednisone 2.5 mg daily. Will continue to hold for now. Does also use Remicade last infusion 2 weeks ago. Will need to hold Remicade until infection completely cleared. (5) DVT prophylaxis: Code(s): Z29.9 - Encounter for prophylactic measures, unspecified Status: Acute Assessment and Plan: SCDs. Time Spent With Patient Time with patient: 15 - 25 minutes Subjective Date/time seen: 05/25/19 09:31 Interval history: Date of Service: 05/25/2019. Admitted diverticulitis with microperforation. Feeling better but does still have some pain after eating. Noted some generalized pain after having oatmeal this morning. Passing flatus. No nausea or vomiting. No chest pain. No shortness of breath. Review of Systems Constitutional: Constitutional: Reports fever(s) ENT: Denies nasal congestion and Denies nasal discharge Cardiovascular: Cardiovascular: Denies chest pain Respiratory: Respiratory: Denies dyspnea Gastrointestinal: Gastrointestinal: Reports abdominal pain (Mild after eating), Denies diarrhea, Denies nausea and Denies vomiting Genitourinary: Genitourinary: Denies hematuria, Denies dysuria and Denies urinary frequency Musculoskeletal: Musculoskeletal: Reports no additional musculoskeletal complaints Integumentary/Breasts: Skin/Breast: Denies rash Neurologic: Denies headache(s) Psychiatric: Psychiatric: Denies anxiety, Denies confusion and Denies depression Exam Narrative: Exam Narrative: Awake and alert. Const: General: no acute distress HENMT: Mouth: Yes moist mucous membranes Neck: Neck: supple Lymphatic: lymphadenopathy not noted Resp: Auscultation: clear to auscultation bilaterally, no rales and no wheezes Cardio: Rate: regular rate Rhythm: regular rhy
--- NOTE | 2019-05-25 10:18 | PM.PNGS ---
Progress Note: A&P Assessment and Plan (1) Diverticulitis of colon with perforation: Onset Date: ~05/20/19 Qualifiers: Diverticulitis bleeding: unspecified bleeding status Qualified Code(s): K57.20 - Diverticulitis of large intestine with perforation and abscess without bleeding Code(s): K57.20 - Diverticulitis of large intestine with perforation and abscess without bleeding Status: Acute Assessment and Plan: Patient is clinically about the same as yesterday. Bowels are moving. WBC up to 14,000 today and and had 1 temp to slightly above normal overnight. Abdominal pain is basically gone, and less tender on exam in LLQ. Will allow the patient to continue have full liquids today but not advance since he had some stomach upset after advancing and taking in some tomato soup yesterday afternoon.. Continue IV antibiotics. Plus add oral metronidazole in preparation for possibly changing him to oral Levaquin and metronidazole for his home antibiotic regimen. Encouraged ambulation in the halls. (2) Long-term use of immunosuppressant medication: Onset Date: Unknown Code(s): Z79.899 - Other jail (current) drug therapy Status: Acute Assessment and Plan: Last Remicade infusion was 2 now almost 3 weeks ago. This may affect how he responds to the current treatment, but hopefully he continues to improve. Continue to hold the low-dose prednisone for now. Discussed with patient today that we would hold both of these until were sure that he is completely free of issues with this diverticulitis. He knows to check with us before taking is next dose of Remicade. (3) Rheumatoid arthritis: Qualifiers: Rheumatoid arthritis location: unspecified site Rheumatoid factor presence: unspecified presence Qualified Code(s): M06.9 - Rheumatoid arthritis, unspecified Code(s): M06.9 - Rheumatoid arthritis, unspecified Status: Acute (4) CAD (coronary artery disease): Qualifiers: Coronary Disease-Associated Artery/Lesion type: [place] artery [place] vs. transplanted heart: [place] heart Associated angina: without angina Qualified Code(s): I25.10 - Atherosclerotic heart disease of [place] coronary artery without angina pectoris Code(s): I25.10 - Atherosclerotic heart disease of [place] coronary artery without angina pectoris Status: Acute (5) Leukocytosis: Qualifiers: Leukocytosis type: unspecified Qualified Code(s): D72.829 - Elevated white blood cell count, unspecified Code(s): D72.829 - Elevated white blood cell count, unspecified Status: Acute Assessment and Plan: Due to diverticulitis as mentioned above. WBC down to 12,600 today. Continue IV abx. (6) Hyperlipidemia: Code(s): E78.5 - Hyperlipidemia, unspecified Status: Acute (7) GERD (gastroesophageal reflux disease): Qualifiers: Esophagitis presence: esophagitis presence not specified Qualified Code(s): K21.9 - Gastro-esophageal reflux disease without esophagitis Code(s): K21.9 - Gastro-esophageal reflux disease without esophagitis Status: Acute Assessment and Plan: Okay to resume or continue any medications for this. Additional Plan Discussed the patient's case and plan of care with Dr. Vasquez. Since patient had a mild setback with missing 1 dose of antibiotics and his white count is slightly up I would suggest continue IV antibiotics for another day seen if he continues to tolerate a full liquid diet and repeating the CBC in a.m. tomorrow. Would start metronidazole p.o. in preparation for possible discharge tomorrow with regimen of Levaquin and metronidazole to complete his antibiotic therapy for the sigmoid diverticulitis. Subjective Subjective Date/Time Seen: 05/25/19 10:18 Patient is sitting up in the chair having a full liquid breakfast when I entered the room. States he had a small somewhat soft bowel movement yeste
[2019-05-25] MEDS: metroNIDAZOLE 250 MG TABLET 500 MG PO ×2 (13:20→21:08)
[2019-05-25] MEDS: DILTIAZEM HCL 30 MG TABLET PO ×3 (13:20→21:09)
[2019-05-25] MEDS: LACTATED RINGERS 1,000 ML 50 ML IV CONT (13:23)
[2019-05-25 14:00] VITALS: BP 91/56; PULSE 75; RESP 18; TEMP 36.9; O2SAT 95
[2019-05-25 21:08] VITALS: PULSE 78
[2019-05-25] MEDS: FAMOTIDINE 20 MG TABLET PO (21:08)
[2019-05-25 22:00] VITALS: BP 103/59; PULSE 78; RESP 18; TEMP 36.4; O2SAT 96
[2019-05-26] MEDS: LACTATED RINGERS 1,000 ML 50 ML IV CONT ×2 (01:00→21:10)
[2019-05-26] MEDS: metroNIDAZOLE 250 MG TABLET 500 MG PO ×3 (05:26→21:02)
[2019-05-26 06:00] VITALS: BP 117/67; PULSE 71; RESP 18; TEMP 36.4; O2SAT 96
[2019-05-26 06:18] LABS: Hematocrit 40.7 % (42.0-52.0); Hemoglobin 13.3 g/dL (14.0-18.0); Mean Corpuscular HGB Conc 32.7 g/dl (32-36); Mean Corpuscular Hemoglobin 30.1 pg (26-34); Mean Corpuscular Volume 92.1 fl (80-100); Mean Platelet Volume 10.8 fl (7.4-10.4); Platelet Count Result 229 k/mm3 (150-375); Red Blood Count 4.42 M/mm3 (4.6-6.20); Red Cell Distribution Width 13.2 % (11.5-14.5); White Blood Count 19.7 K/mm3 (4.5-10.0)
[2019-05-26 06:36] LABS: Alanine Aminotransferase 41 U/L (4-50); Albumin Level 3.5 g/dL (3.5-5.1); Alkaline Phosphatase 67 U/L (38-126); Aspartate Amino Transferase 39 U/L (17-59); Bilirubin,Total 0.5 mg/dL (0.2-1.3); Blood Urea Nitrogen 12 mg/dL (9-20); Calcium 8.5 mg/dL (8.4-10.2); Carbon Dioxide 30 mmol/L (22-30); Chloride 101 mmol/L (98-107); Estimated CRCL calculation 77 ml/min; Estimated Glomerular Filt Rate > 60; Glucose 95 mg/dL (75-110); Potassium 3.7 mmol/L (3.4-5.0); Sodium 133 mmol/L (137-145)
[2019-05-26 08:50] VITALS: PULSE 71
[2019-05-26] MEDS: DILTIAZEM HCL 30 MG TABLET PO ×4 (08:50→21:02)
[2019-05-26] MEDS: FAMOTIDINE 20 MG TABLET PO ×2 (08:50→21:02)
[2019-05-26] MEDS: ISOSORBIDE MONONITRATE 60 MG TAB.ER.24H PO (08:50)
[2019-05-26] MEDS: METOPROLOL TARTRATE 25 MG TABLET PO ×2 (08:50→21:02)
--- NOTE | 2019-05-26 09:59 | PM.PNGS ---
Progress Note: A&P Assessment and Plan (1) Diverticulitis of colon with perforation: Onset Date: ~05/20/19 Qualifiers: Diverticulitis bleeding: unspecified bleeding status Qualified Code(s): K57.20 - Diverticulitis of large intestine with perforation and abscess without bleeding Code(s): K57.20 - Diverticulitis of large intestine with perforation and abscess without bleeding Status: Acute Assessment and Plan: Patient is clinically about the same as yesterday. Bowels are moving. WBC up to 19,700 today and Abdominal pain is basically gone, and less tender on exam in LLQ. Will have the patient stay only on clears until results of the CT today is known Continue IV antibiotics. Plus add oral metronidazole in preparation for possibly changing him to oral Levaquin and metronidazole for his home antibiotic regimen. Encouraged ambulation in the halls. Discussed with Radiology. Will get CT scan of the abdomen pelvis with IV contrast and allow patient to drink a couple of glasses of water prior to going down for the CT. Will hold diet other than sips of liquids until we have the results. 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 This may affect how he responds to the current treatment, but hopefully he continues to improve. Continue to hold the low-dose prednisone for now. Discussed with patient today that we would hold both of these until were sure that he is completely free of issues with this diverticulitis. He knows to check with us before taking is next dose of Remicade. (3) Rheumatoid arthritis: Qualifiers: Rheumatoid arthritis location: unspecified site Rheumatoid factor presence: unspecified presence Qualified Code(s): M06.9 - Rheumatoid arthritis, unspecified Code(s): M06.9 - Rheumatoid arthritis, unspecified Status: Acute (4) CAD (coronary artery disease): Qualifiers: Associated angina: without angina Coronary Disease-Associated Artery/Lesion type: [place] artery [place] vs. transplanted heart: [place] heart Qualified Code(s): I25.10 - Atherosclerotic heart disease of [place] coronary artery without angina pectoris Code(s): I25.10 - Atherosclerotic heart disease of [place] coronary artery without angina pectoris Status: Acute (5) Leukocytosis: Qualifiers: Leukocytosis type: unspecified Qualified Code(s): D72.829 - Elevated white blood cell count, unspecified Code(s): D72.829 - Elevated white blood cell count, unspecified Status: Acute Assessment and Plan: Due to diverticulitis as mentioned above. WBC down to 19,500 today. Continue IV abx. (6) Hyperlipidemia: Code(s): E78.5 - Hyperlipidemia, unspecified Status: Acute (7) GERD (gastroesophageal reflux disease): Qualifiers: Esophagitis presence: esophagitis presence not specified Qualified Code(s): K21.9 - Gastro-esophageal reflux disease without esophagitis Code(s): K21.9 - Gastro-esophageal reflux disease without esophagitis Status: Acute Assessment and Plan: Okay to resume or continue any medications for this. Subjective Subjective Date/Time Seen: 05/26/19 09:59 Patient is sitting up in bed finishing breakfast when I entered. He states he has been feeling okay the last 24 hours. He has had a few small bowel movements with mostly gas and small chunks of stool. He is walking the hallways without trouble. He states and quotes I feel better each day and quotes. No fever overnight. States he does not feel as if he is bloated. Review of Systems Review of Systems: All systems reviewed & are unremarkable except as noted in HPI and below Constitutional: Constitutional: Reports as per HPI, Denies chills, Denies excessive s
--- NOTE | 2019-05-26 10:05 | PM.IMPN ---
Progress Note: A&P Assessment and Plan (1) Diverticulitis of colon with perforation: Onset Date: ~05/20/19 Qualifiers: Diverticulitis bleeding: unspecified bleeding status Qualified Code(s): K57.20 - Diverticulitis of large intestine with perforation and abscess without bleeding Code(s): K57.20 - Diverticulitis of large intestine with perforation and abscess without bleeding Status: Acute Assessment and Plan: CT scan abdomen/pelvis with acute sigmoid diverticulitis with microperforation. Moderate amount of sigmoid diverticulosis is noted. General surgery consulted and appreciate input. Discussed with Dr. Cleveland again today. WBC increased to 19.7 today. No fever. Plan to check CT abdomen with contrast to further evaluate. Will continue IV Zosyn and oral metronidazole. started. IV Dilaudid remains available for pain. Remains on full liquid diet. Will make any necessary adjustments to treatment once CT results known. (2) CAD (coronary artery disease): Qualifiers: Coronary Disease-Associated Artery/Lesion type: [place] artery [place] vs. transplanted heart: [place] heart Associated angina: without angina Qualified Code(s): I25.10 - Atherosclerotic heart disease of [place] coronary artery without angina pectoris Code(s): I25.10 - Atherosclerotic heart disease of [place] coronary artery without angina pectoris Status: Acute Assessment and Plan: Remains stable. No acute issue. Continue home Imdur, metoprolol and diltiazem. Blood pressure reviewed on 05/26/2019 and stable. (3) GERD (gastroesophageal reflux disease): Qualifiers: Esophagitis presence: esophagitis presence not specified Qualified Code(s): K21.9 - Gastro-esophageal reflux disease without esophagitis Code(s): K21.9 - Gastro-esophageal reflux disease without esophagitis Status: Acute Assessment and Plan: Stable. Continue Pepcid. (4) Rheumatoid arthritis: Qualifiers: Rheumatoid arthritis location: unspecified site Rheumatoid factor presence: unspecified presence Qualified Code(s): M06.9 - Rheumatoid arthritis, unspecified Code(s): M06.9 - Rheumatoid arthritis, unspecified Status: Acute Assessment and Plan: On very low-dose prednisone 2.5 mg daily at home along with Remicade. Last infusion of Remicade 2 weeks ago. Continue to hold prednisone and Remicade until infection cleared. (5) DVT prophylaxis: Code(s): Z29.9 - Encounter for prophylactic measures, unspecified Status: Acute Assessment and Plan: SCDs. Time Spent With Patient Time with patient: 15 - 25 minutes Subjective Date/time seen: 05/26/19 10:05 Interval history: Date of Service: 05/26/2019. Admitted diverticulitis with microperforation. Abdominal pain minimal at this point. No nausea or vomiting. No chest pain. No shortness of breath. No fever. Review of Systems Review of Systems: Narrative: Feeling better. Constitutional: Constitutional: Denies chills and Denies fever(s) ENT: Denies nasal congestion and Denies nasal discharge Cardiovascular: Cardiovascular: Denies chest pain Respiratory: Respiratory: Denies dyspnea Gastrointestinal: Gastrointestinal: Reports abdominal pain (minimal), Denies diarrhea, Denies nausea and Denies vomiting Genitourinary: Genitourinary: Denies hematuria, Denies dysuria and Denies urinary frequency Musculoskeletal: Musculoskeletal: Reports no additional musculoskeletal complaints Integumentary/Breasts: Skin/Breast: Denies rash Neurologic: Denies headache(s) Psychiatric: Psychiatric: Denies anxiety, Denies confusion and Denies depression Exam Narrative: Exam Narrative: Awake and alert. Const: General: no acute distress HENMT: Mouth: Yes moist mucous membranes Neck: Neck: supple Lymphatic: lymphadenopathy not noted Resp: Auscultation: clear to auscultation bilaterally, no rales and no wheezes C
[2019-05-26 14:04] VITALS: BP 104/64; PULSE 75; RESP 20; TEMP 36.7; O2SAT 95
[2019-05-26 21:02] VITALS: PULSE 86
[2019-05-26 22:00] VITALS: BP 101/59; PULSE 70; RESP 20; TEMP 36.3; O2SAT 94
[2019-05-27] MEDS: metroNIDAZOLE 250 MG TABLET 500 MG PO ×3 (05:48→21:04)
[2019-05-27 06:00] VITALS: BP 111/71; PULSE 76; RESP 20; TEMP 36.4; O2SAT 96
[2019-05-27 06:15] LABS: Basophils Absolute Auto 0.1 K/mm3 (0.0-0.1); Basophils Percent Auto 0.3 % (0.2-1.2); Eosinophils Absolute Auto 0.2 K/mm3 (0-0.3); Eosinophils Percent Auto 1.2 % (0-4.4); Hematocrit 38.7 % (42.0-52.0); Hemoglobin 12.5 g/dL (14.0-18.0); Immature Granulocyte Absolute 0.18 K/mm3 (0.00-0.031); Immature Granulocyte Percent A 0.9 % (0-0.5); Lymphocytes Absolute Auto 3.02 K/mm3 (0.9-3.2); Lymphocytes Percent Auto 15.2 % (18.3-44.2); Mean Corpuscular HGB Conc 32.3 g/dl (32-36); Mean Corpuscular Hemoglobin 29.9 pg (26-34); Mean Corpuscular Volume 92.6 fl (80-100); Mean Platelet Volume 10.8 fl (7.4-10.4); Monocytes Absolute Auto 1.2 K/mm3 (0.1-0.6); Monocytes Percent Auto 6.2 % (2.6-8.5); Neutrophils Absolute Auto 15.1 K/mm3 (1.3-6.7); Neutrophils Percent Auto 76.2 % (45.5-73.1); Platelet Count Result 250 k/mm3 (150-375); Red Blood Count 4.18 M/mm3 (4.6-6.20); Red Cell Distribution Width 13.2 % (11.5-14.5); White Blood Count 19.8 K/mm3 (4.5-10.0)
[2019-05-27 06:35] LABS: Alanine Aminotransferase 36 U/L (4-50); Albumin Level 3.4 g/dL (3.5-5.1); Alkaline Phosphatase 64 U/L (38-126); Aspartate Amino Transferase 31 U/L (17-59); Bilirubin,Total 0.5 mg/dL (0.2-1.3); Blood Urea Nitrogen 13 mg/dL (9-20); Calcium 8.5 mg/dL (8.4-10.2); Carbon Dioxide 31 mmol/L (22-30); Chloride 101 mmol/L (98-107); Estimated CRCL calculation 77 ml/min; Estimated Glomerular Filt Rate > 60; Glucose 94 mg/dL (75-110); Sodium 134 mmol/L (137-145)
[2019-05-27 09:10] VITALS: PULSE 76
[2019-05-27] MEDS: METOPROLOL TARTRATE 25 MG TABLET PO ×2 (09:10→21:04)
[2019-05-27] MEDS: DILTIAZEM HCL 30 MG TABLET PO ×4 (09:10→21:04)
[2019-05-27] MEDS: FAMOTIDINE 20 MG TABLET PO ×2 (09:10→21:04)
[2019-05-27] MEDS: ISOSORBIDE MONONITRATE 60 MG TAB.ER.24H PO (09:11)
--- NOTE | 2019-05-27 09:25 | PM.IMPN ---
Progress Note: A&P Assessment and Plan (1) Diverticulitis of colon with perforation: Onset Date: ~05/20/19 Qualifiers: Diverticulitis bleeding: unspecified bleeding status Qualified Code(s): K57.20 - Diverticulitis of large intestine with perforation and abscess without bleeding Code(s): K57.20 - Diverticulitis of large intestine with perforation and abscess without bleeding Status: Acute Assessment and Plan: CT scan abdomen/pelvis with acute sigmoid diverticulitis with microperforation. Moderate amount of sigmoid diverticulosis is noted. General surgery consulted and appreciate input. Repeat CT abdomen/pelvis done on 05/26/2019 with 4.3 x 3.2 cm gas-containing perisigmoid fluid collection and 5.2 x 1.9 cm bilobed fluid collection seen at the anterior/superior aspect of the urinary bladder with additional smaller adjacent pelvic fluid collections noted. Discussed with Dr. Cleveland again yesterday. Plan for percutaneous drain placement tomorrow per interventional radiology. WBC unchanged at 19.8 today. Will continue IV Zosyn and oral metronidazole. started. IV Dilaudid remains available for pain. Remains on full liquid diet. Patient advised of plan. (2) CAD (coronary artery disease): Qualifiers: Associated angina: without angina Coronary Disease-Associated Artery/Lesion type: [place] artery [place] vs. transplanted heart: [place] heart Qualified Code(s): I25.10 - Atherosclerotic heart disease of [place] coronary artery without angina pectoris Code(s): I25.10 - Atherosclerotic heart disease of [place] coronary artery without angina pectoris Status: Acute Assessment and Plan: Stable. No acute issue. Continue home Imdur, metoprolol and diltiazem. Blood pressure reviewed on 05/27/2019 and remains stable. (3) GERD (gastroesophageal reflux disease): Qualifiers: Esophagitis presence: esophagitis presence not specified Qualified Code(s): K21.9 - Gastro-esophageal reflux disease without esophagitis Code(s): K21.9 - Gastro-esophageal reflux disease without esophagitis Status: Acute Assessment and Plan: Stable. Continue Pepcid. (4) Rheumatoid arthritis: Qualifiers: Rheumatoid arthritis location: unspecified site Rheumatoid factor presence: unspecified presence Qualified Code(s): M06.9 - Rheumatoid arthritis, unspecified Code(s): M06.9 - Rheumatoid arthritis, unspecified Status: Acute Assessment and Plan: On very low-dose prednisone 2.5 mg daily at home along with Remicade. Last infusion of Remicade 2 weeks ago. Continue to hold prednisone and Remicade until infection cleared. (5) DVT prophylaxis: Code(s): Z29.9 - Encounter for prophylactic measures, unspecified Status: Acute Assessment and Plan: SCDs. Time Spent With Patient Time with patient: 15 - 25 minutes Subjective Date/time seen: 05/27/19 09:25 Interval history: Date of Service: 05/27/2019. Admitted diverticulitis with microperforation. No significant abdominal pain. No nausea or vomiting. No chest pain. No shortness of breath. No fever. Review of Systems Constitutional: Constitutional: Denies chills and Denies fever(s) ENT: Denies nasal congestion and Denies nasal discharge Cardiovascular: Cardiovascular: Denies chest pain Respiratory: Respiratory: Denies dyspnea Gastrointestinal: Gastrointestinal: Reports abdominal pain (no significant pain), Denies diarrhea, Denies nausea and Denies vomiting Genitourinary: Genitourinary: Denies hematuria, Denies dysuria and Denies urinary frequency Musculoskeletal: Musculoskeletal: Reports no additional musculoskeletal complaints Integumentary/Breasts: Skin/Breast: Denies rash Neurologic: Denies headache(s) Psychiatric: Psychiatric: Denies anxiety, Denies confusion and Denies depression Exam Narrative: Exam Narrative: Awake and alert. Const: General: no acute di
[2019-05-27 13:36] VITALS: BP 98/57; PULSE 72; RESP 20; TEMP 36.6; O2SAT 93
--- NOTE | 2019-05-27 13:50 | PM.PNGS ---
Progress Note: A&P Assessment and Plan (1) Diverticulitis of colon with perforation: Onset Date: ~05/20/19 Qualifiers: Diverticulitis bleeding: unspecified bleeding status Qualified Code(s): K57.20 - Diverticulitis of large intestine with perforation and abscess without bleeding Code(s): K57.20 - Diverticulitis of large intestine with perforation and abscess without bleeding Status: Acute Assessment and Plan: Patient is clinically about the same as yesterday. Bowels are moving but without muc volume. WBC up to 19,800 today and Abdominal pain is basically gone, and less tender on exam in [facility]. Continue IV antibiotics. Plus added oral metronidazole in preparation for possibly changing him to oral Levaquin and metronidazole for his home antibiotic regimen. Encouraged ambulation in the halls. Discussed with Radiology. Will get CT scan guided percutaneous drainage of the larger abscess seen on yesterday's CT. Hopefully will be able to do this tomorrow morning fairly early. Base the radiologist not on this weekend and patient is stable. (2) Long-term use of immunosuppressant medication: Onset Date: Unknown Code(s): Z79.899 - Other assistant terminal manager (current) drug therapy Status: Acute Assessment and Plan: Last Remicade infusion was 2 now almost 3 weeks ago. This may affect how he responds to the current treatment, but hopefully he continues to improve. Continue to hold the low-dose prednisone for now. Discussed with patient today that we would hold both of these until were sure that he is completely free of issues with this diverticulitis. He knows to check with us before taking is next dose of Remicade. (3) Rheumatoid arthritis: Qualifiers: Rheumatoid arthritis location: unspecified site Rheumatoid factor presence: unspecified presence Qualified Code(s): M06.9 - Rheumatoid arthritis, unspecified Code(s): M06.9 - Rheumatoid arthritis, unspecified Status: Acute Assessment and Plan: Patient not complain of any problems with this right now. (4) CAD (coronary artery disease): Qualifiers: Coronary Disease-Associated Artery/Lesion type: [place] artery [place] vs. transplanted heart: [place] heart Associated angina: without angina Qualified Code(s): I25.10 - Atherosclerotic heart disease of [place] coronary artery without angina pectoris Code(s): I25.10 - Atherosclerotic heart disease of [place] coronary artery without angina pectoris Status: Acute (5) Leukocytosis: Qualifiers: Leukocytosis type: unspecified Qualified Code(s): D72.829 - Elevated white blood cell count, unspecified Code(s): D72.829 - Elevated white blood cell count, unspecified Status: Acute Assessment and Plan: Due to diverticulitis as mentioned above. WBC down to 19,500 today. Continue IV abx. (6) Hyperlipidemia: Code(s): E78.5 - Hyperlipidemia, unspecified Status: Acute (7) GERD (gastroesophageal reflux disease): Qualifiers: Esophagitis presence: esophagitis presence not specified Qualified Code(s): K21.9 - Gastro-esophageal reflux disease without esophagitis Code(s): K21.9 - Gastro-esophageal reflux disease without esophagitis Status: Acute Assessment and Plan: Okay to resume or continue any medications for this. Additional Plan Discussed the patient's case and plan of care with Dr. Vasquez. Continue IV antibiotics and p.o. metronidazole. Will schedule for a CT-guided percutaneous drainage of the newly discovered abscess for Tuesday. Subjective Subjective Date/Time Seen: 05/27/19 13:50 Patient continues to feel fairly well. Tolerating full liquids okay. I discussed the findings of the CT scan from yesterday with him. I explained the benefit of percutaneous drainage in the situation of pericolonic abscess. Review of Systems Constitutional: Constitutional: Reports as p
[2019-05-27] MEDS: MAGNESIUM HYDROXIDE SUSP 30 ML UDC PO (16:38)
[2019-05-27 21:04] VITALS: PULSE 84
[2019-05-27 21:31] VITALS: BP 109/61; PULSE 77; RESP 18; TEMP 37.3; O2SAT 93
[2019-05-28] VITALS (11 sets, daily range): BP systolic 97–111; BP diastolic 58–73; PULSE 62–76; RESP 14–24; TEMP 36.5–37.3; O2SAT 92–95
[2019-05-28 06:12] LABS: Hematocrit 39.6 % (42.0-52.0); Hemoglobin 12.7 g/dL (14.0-18.0); Mean Corpuscular HGB Conc 32.1 g/dl (32-36); Mean Corpuscular Hemoglobin 29.8 pg (26-34); Mean Platelet Volume 10.7 fl (7.4-10.4); Platelet Count Result 267 k/mm3 (150-375); Red Blood Count 4.26 M/mm3 (4.6-6.20); Red Cell Distribution Width 13.3 % (11.5-14.5)
[2019-05-28 07:54] LABS: Blood Urea Nitrogen 13 mg/dL (9-20); Calcium 8.4 mg/dL (8.4-10.2); Carbon Dioxide 27 mmol/L (22-30); Chloride 102 mmol/L (98-107); Estimated CRCL calculation 77 ml/min; Estimated Glomerular Filt Rate > 60; Glucose 88 mg/dL (75-110); Potassium 3.7 mmol/L (3.4-5.0); Sodium 134 mmol/L (137-145)
[2019-05-28 07:57] LABS: INR 1.3; Prothrombin Time 16.2 Seconds (11.1-14.7)
[2019-05-28 07:58] LABS: Partial Thromboplastin Time 31.5 SECONDS (22.3-36.8)
[2019-05-28] MEDS: DILTIAZEM HCL 30 MG TABLET PO ×4 (09:46→20:58)
[2019-05-28] MEDS: METOPROLOL TARTRATE 25 MG TABLET PO ×2 (09:46→20:58)
[2019-05-28] MEDS: ISOSORBIDE MONONITRATE 60 MG TAB.ER.24H PO (09:47)
[2019-05-28] MEDS: FAMOTIDINE 20 MG TABLET PO ×2 (09:47→20:58)
--- NOTE | 2019-05-28 12:52 | PM.IMPN ---
Progress Note: A&P Assessment and Plan (1) Diverticulitis of colon with perforation: Onset Date: ~05/20/19 Qualifiers: Diverticulitis bleeding: unspecified bleeding status Qualified Code(s): K57.20 - Diverticulitis of large intestine with perforation and abscess without bleeding Code(s): K57.20 - Diverticulitis of large intestine with perforation and abscess without bleeding Status: Acute Assessment and Plan: CT scan abdomen/pelvis with acute sigmoid diverticulitis with microperforation. Moderate amount of sigmoid diverticulosis is noted. General surgery consulted and appreciate input. Repeat CT abdomen/pelvis done on 05/26/2019 with 4.3 x 3.2 cm gas-containing perisigmoid fluid collection and 5.2 x 1.9 cm bilobed fluid collection seen at the anterior/superior aspect of the urinary bladder with additional smaller adjacent pelvic fluid collections noted. Plan for placement of percutaneous drains in abscesses today. WBC essentially unchanged at 20.9. Continue IV Zosyn and oral metronidazole. IV Dilaudid remains available for pain. Remains on full liquid diet. Will continue to monitor. (2) CAD (coronary artery disease): Qualifiers: Associated angina: without angina Coronary Disease-Associated Artery/Lesion type: [place] artery [place] vs. transplanted heart: [place] heart Qualified Code(s): I25.10 - Atherosclerotic heart disease of [place] coronary artery without angina pectoris Code(s): I25.10 - Atherosclerotic heart disease of [place] coronary artery without angina pectoris Status: Acute Assessment and Plan: Stable. No acute issue. Continue home Imdur, metoprolol and diltiazem. Blood pressure reviewed on 05/28/2019 and remains stable. (3) GERD (gastroesophageal reflux disease): Qualifiers: Esophagitis presence: esophagitis presence not specified Qualified Code(s): K21.9 - Gastro-esophageal reflux disease without esophagitis Code(s): K21.9 - Gastro-esophageal reflux disease without esophagitis Status: Acute Assessment and Plan: Stable. Continue Pepcid. (4) Rheumatoid arthritis: Qualifiers: Rheumatoid arthritis location: unspecified site Rheumatoid factor presence: unspecified presence Qualified Code(s): M06.9 - Rheumatoid arthritis, unspecified Code(s): M06.9 - Rheumatoid arthritis, unspecified Status: Acute Assessment and Plan: On very low-dose prednisone 2.5 mg daily at home along with Remicade. Last infusion of Remicade 2 weeks ago. Continue to hold prednisone and Remicade until infection cleared. (5) DVT prophylaxis: Code(s): Z29.9 - Encounter for prophylactic measures, unspecified Status: Acute Assessment and Plan: SCDs. Time Spent With Patient Time with patient: 15 - 25 minutes Subjective Date/time seen: 05/28/19 12:52 Interval history: Date of Service: 05/28/2019. Admitted diverticulitis with microperforation. No issues overnight. Resting comfortably. No abdominal pain. No nausea or vomiting. No chest pain. No shortness of breath. No fever. Review of Systems Constitutional: Constitutional: Denies chills and Denies fever(s) ENT: Denies nasal congestion and Denies nasal discharge Cardiovascular: Cardiovascular: Denies chest pain Respiratory: Respiratory: Denies dyspnea Gastrointestinal: Gastrointestinal: Denies abdominal pain, Denies diarrhea, Denies nausea and Denies vomiting Genitourinary: Genitourinary: Denies hematuria, Denies dysuria and Denies urinary frequency Musculoskeletal: Musculoskeletal: Reports no additional musculoskeletal complaints Integumentary/Breasts: Skin/Breast: Denies rash Neurologic: Denies headache(s) Psychiatric: Psychiatric: Denies anxiety, Denies confusion and Denies depression Exam Narrative: Exam Narrative: Awake and alert. Const: General: no acute distress HENMT: Mouth: Yes moist mucous membranes Neck:
--- NOTE | 2019-05-28 13:30 | PC.NURSE ---
To radiology at 1324
--- NOTE | 2019-05-28 14:42 | PC.NURSE ---
Returned from radiology.
[2019-05-28] MEDS: metroNIDAZOLE 250 MG TABLET 500 MG PO ×3 (15:07→21:01)
--- NOTE | 2019-05-28 16:39 | PM.PNGS ---
Progress Note: A&P Assessment and Plan (1) Diverticulitis of colon with perforation: Onset Date: ~05/20/19 Qualifiers: Diverticulitis bleeding: unspecified bleeding status Qualified Code(s): K57.20 - Diverticulitis of large intestine with perforation and abscess without bleeding Code(s): K57.20 - Diverticulitis of large intestine with perforation and abscess without bleeding Status: Acute Assessment and Plan: Patient is clinically about the same as yesterday. Bowels are moving but without more volume. WBC up to 20,000 today and Abdominal pain is basically gone, and less tender on exam in [facility]. Continue IV antibiotics. Plus added oral metronidazole in preparation for possibly changing him to oral Levaquin and metronidazole for his home antibiotic regimen. Encouraged ambulation in the halls. Discussed with Radiology. CT scan guided percutaneous drainage of the larger abscess seen on yesterday's CT Now completed by Dr. Martines. Patient doing well post procedure (2) Long-term use of immunosuppressant medication: Onset Date: Unknown Code(s): Z79.899 - Other senior care (current) drug therapy Status: Acute Assessment and Plan: Last Remicade infusion was 2 now almost 3 weeks ago. This may affect how he responds to the current treatment, but hopefully he continues to improve. Continue to hold the low-dose prednisone for now. Discussed with patient today that we would hold both of these until were sure that he is completely free of issues with this diverticulitis. He knows to check with us before taking is next dose of Remicade. (3) Rheumatoid arthritis: Qualifiers: Rheumatoid arthritis location: unspecified site Rheumatoid factor presence: unspecified presence Qualified Code(s): M06.9 - Rheumatoid arthritis, unspecified Code(s): M06.9 - Rheumatoid arthritis, unspecified Status: Acute Assessment and Plan: Patient not complain of any problems with this right now. (4) CAD (coronary artery disease): Qualifiers: Coronary Disease-Associated Artery/Lesion type: [place] artery [place] vs. transplanted heart: [place] heart Associated angina: without angina Qualified Code(s): I25.10 - Atherosclerotic heart disease of [place] coronary artery without angina pectoris Code(s): I25.10 - Atherosclerotic heart disease of [place] coronary artery without angina pectoris Status: Acute (5) Leukocytosis: Qualifiers: Leukocytosis type: unspecified Qualified Code(s): D72.829 - Elevated white blood cell count, unspecified Code(s): D72.829 - Elevated white blood cell count, unspecified Status: Acute Assessment and Plan: Due to diverticulitis as mentioned above. WBC down to 19,500 today. Continue IV abx. (6) Hyperlipidemia: Code(s): E78.5 - Hyperlipidemia, unspecified Status: Acute (7) GERD (gastroesophageal reflux disease): Qualifiers: Esophagitis presence: esophagitis presence not specified Qualified Code(s): K21.9 - Gastro-esophageal reflux disease without esophagitis Code(s): K21.9 - Gastro-esophageal reflux disease without esophagitis Status: Acute Assessment and Plan: Okay to resume or continue any medications for this. Additional Plan Discussed the patient's case and plan of care with Dr. Vasquez. Continue IV antibiotics and p.o. metronidazole. if doing well will advance patient's diet and let him go home tomorrow and I will follow up in the office next week. Repeat WBC in a.m. and see how he tolerates the tube overnight. Subjective Subjective Date/Time Seen: 05/28/19 16:39 Interval history: patient is sleeping when I enter the room. Denies much pain. States he had several bowel movements yesterday after taking milk a magnesia. No problems with going through the percutaneous drainage early this afternoon. States the radiologist got a good amount of y
[2019-05-28] MEDS: LACTATED RINGERS 1,000 ML 50 ML IV CONT (21:02)
[2019-05-29] MEDS: metroNIDAZOLE 250 MG TABLET 500 MG PO ×2 (05:04→13:09)
[2019-05-29 05:53] LABS: Hematocrit 40.4 % (42.0-52.0); Hemoglobin 13.2 g/dL (14.0-18.0); Mean Corpuscular HGB Conc 32.7 g/dl (32-36); Mean Corpuscular Hemoglobin 29.9 pg (26-34); Mean Corpuscular Volume 91.6 fl (80-100); Mean Platelet Volume 10.2 fl (7.4-10.4); Platelet Count Result 290 k/mm3 (150-375); Red Blood Count 4.41 M/mm3 (4.6-6.20); Red Cell Distribution Width 13.2 % (11.5-14.5); White Blood Count 15.3 K/mm3 (4.5-10.0)
[2019-05-29 06:00] VITALS: BP 109/60; PULSE 70; RESP 20; TEMP 36.9; O2SAT 92
[2019-05-29 06:05] LABS: Alanine Aminotransferase 25 U/L (4-50); Albumin Level 3.4 g/dL (3.5-5.1); Alkaline Phosphatase 67 U/L (38-126); Aspartate Amino Transferase 24 U/L (17-59); Bilirubin,Total 0.5 mg/dL (0.2-1.3); Blood Urea Nitrogen 13 mg/dL (9-20); Calcium 8.4 mg/dL (8.4-10.2); Carbon Dioxide 31 mmol/L (22-30); Chloride 101 mmol/L (98-107); Estimated CRCL calculation 70 ml/min; Estimated Glomerular Filt Rate > 60; Glucose 95 mg/dL (75-110); Potassium 4.1 mmol/L (3.4-5.0); Sodium 135 mmol/L (137-145)
[2019-05-29 09:16] VITALS: O2SAT 92
[2019-05-29 09:54] VITALS: PULSE 70
[2019-05-29] MEDS: METOPROLOL TARTRATE 25 MG TABLET PO (09:54)
[2019-05-29] MEDS: ISOSORBIDE MONONITRATE 60 MG TAB.ER.24H PO (09:54)
[2019-05-29] MEDS: FAMOTIDINE 20 MG TABLET PO (09:54)
[2019-05-29] MEDS: DILTIAZEM HCL 30 MG TABLET PO ×2 (09:54→13:09)
--- NOTE | 2019-05-29 12:23 | PM.IMPN ---
Progress Note: A&P Assessment and Plan (1) Diverticulitis of colon with perforation: Onset Date: ~05/20/19 Qualifiers: Diverticulitis bleeding: unspecified bleeding status Qualified Code(s): K57.20 - Diverticulitis of large intestine with perforation and abscess without bleeding Code(s): K57.20 - Diverticulitis of large intestine with perforation and abscess without bleeding Status: Acute Assessment and Plan: CT scan abdomen/pelvis with acute sigmoid diverticulitis with microperforation. Moderate amount of sigmoid diverticulosis is noted. General surgery consulted and appreciate input. Repeat CT abdomen/pelvis done on 05/26/2019 with 4.3 x 3.2 cm gas-containing perisigmoid fluid collection and 5.2 x 1.9 cm bilobed fluid collection seen at the anterior/superior aspect of the urinary bladder with additional smaller adjacent pelvic fluid collections noted. CT-guided placement of catheter successfully yesterday with return of 18 mL fluid. Cultures with no growth today. WBC has decreased to 15.3 today. Remains on IV Zosyn and oral metronidazole. Diet per surgery. IV Dilaudid in place pain. Home when okay with surgery. (2) CAD (coronary artery disease): Qualifiers: Associated angina: without angina Coronary Disease-Associated Artery/Lesion type: [place] artery [place] vs. transplanted heart: [place] heart Qualified Code(s): I25.10 - Atherosclerotic heart disease of [place] coronary artery without angina pectoris Code(s): I25.10 - Atherosclerotic heart disease of [place] coronary artery without angina pectoris Status: Acute Assessment and Plan: Remains stable. No acute issue. Continue home Imdur, metoprolol and diltiazem. Blood pressure reviewed on 05/29/2019 and remains low normal but stable. (3) GERD (gastroesophageal reflux disease): Qualifiers: Esophagitis presence: esophagitis presence not specified Qualified Code(s): K21.9 - Gastro-esophageal reflux disease without esophagitis Code(s): K21.9 - Gastro-esophageal reflux disease without esophagitis Status: Acute Assessment and Plan: Stable. Continue Pepcid. (4) Rheumatoid arthritis: Qualifiers: Rheumatoid arthritis location: unspecified site Rheumatoid factor presence: unspecified presence Qualified Code(s): M06.9 - Rheumatoid arthritis, unspecified Code(s): M06.9 - Rheumatoid arthritis, unspecified Status: Acute Assessment and Plan: On very low-dose prednisone 2.5 mg daily at home along with Remicade. Last infusion of Remicade 2 weeks ago. Continue to hold prednisone and Remicade until infection cleared. (5) DVT prophylaxis: Code(s): Z29.9 - Encounter for prophylactic measures, unspecified Status: Acute Assessment and Plan: SCDs. Time Spent With Patient Time with patient: 15 - 25 minutes Subjective Date/time seen: 05/29/19 12:23 Interval history: Date of Service: 05/29/2019. Admitted diverticulitis with microperforation. Sleeping but easily awakened. No significant abdominal pain today. No nausea or vomiting. Did have placement of percutaneous drain without difficulty yesterday. No chest pain or shortness of breath. Review of Systems Constitutional: Constitutional: Denies chills and Denies fever(s) ENT: Denies nasal congestion and Denies nasal discharge Cardiovascular: Cardiovascular: Denies chest pain Respiratory: Respiratory: Denies dyspnea Gastrointestinal: Gastrointestinal: Denies abdominal pain, Denies diarrhea, Denies nausea and Denies vomiting Genitourinary: Genitourinary: Denies hematuria, Denies dysuria and Denies urinary frequency Musculoskeletal: Musculoskeletal: Reports no additional musculoskeletal complaints Integumentary/Breasts: Skin/Breast: Denies rash Psychiatric: Psychiatric: Denies anxiety and Denies depression Exam Narrative: Exam Narrative: Easily awakened. Const: General: no
[2019-05-29 14:00] VITALS: BP 80/52; PULSE 67; RESP 16; TEMP 36.4; O2SAT 95
--- NOTE | 2019-05-29 14:44 | PM.PNGS ---
Progress Note: A&P Assessment and Plan (1) Diverticulitis of colon with perforation: Onset Date: ~05/20/19 Qualifiers: Diverticulitis bleeding: unspecified bleeding status Qualified Code(s): K57.20 - Diverticulitis of large intestine with perforation and abscess without bleeding Code(s): K57.20 - Diverticulitis of large intestine with perforation and abscess without bleeding Status: Acute Assessment and Plan: Patient clinically improving following perc. drainage of the larger perisigmoid abscess on 05/28/19. Cultures pending. WBC down to 15,000 today and patient remains afebrile. No abdominal tenderness on exam today. Okay to discharge home today from a surgical standpoint if okay with medicine. Would continue oral antibiotics for another 10 days after discharge. Will plan on having the patient follow-up with Dr. Cleveland in the office next . Continue perc. drain on discharge and record output once daily on paper - bring this into the office visit. (2) Long-term use of immunosuppressant medication: Onset Date: Unknown Code(s): Z79.899 - Other chcf (current) drug therapy Status: Acute Assessment and Plan: Last Remicade infusion was 2 now almost 3 weeks ago. This may affect how he responds to the current treatment, but hopefully he continues to improve. Continue to hold the low-dose prednisone for now. Discussed with patient today that we would hold both of these until we are sure that he is completely free of issues with this diverticulitis. He knows to check with us before taking is next dose of Remicade. (3) Rheumatoid arthritis: Qualifiers: Rheumatoid arthritis location: unspecified site Rheumatoid factor presence: unspecified presence Qualified Code(s): M06.9 - Rheumatoid arthritis, unspecified Code(s): M06.9 - Rheumatoid arthritis, unspecified Status: Acute (4) CAD (coronary artery disease): Qualifiers: Coronary Disease-Associated Artery/Lesion type: [place] artery [place] vs. transplanted heart: [place] heart Associated angina: without angina Qualified Code(s): I25.10 - Atherosclerotic heart disease of [place] coronary artery without angina pectoris Code(s): I25.10 - Atherosclerotic heart disease of [place] coronary artery without angina pectoris Status: Acute (5) Leukocytosis: Qualifiers: Leukocytosis type: unspecified Qualified Code(s): D72.829 - Elevated white blood cell count, unspecified Code(s): D72.829 - Elevated white blood cell count, unspecified Status: Acute Assessment and Plan: Due to diverticulitis as mentioned above. WBC trending down following perc. drain placement. See plan above. (6) Hyperlipidemia: Code(s): E78.5 - Hyperlipidemia, unspecified Status: Acute (7) GERD (gastroesophageal reflux disease): Qualifiers: Esophagitis presence: esophagitis presence not specified Qualified Code(s): K21.9 - Gastro-esophageal reflux disease without esophagitis Code(s): K21.9 - Gastro-esophageal reflux disease without esophagitis Status: Acute Additional Plan Discussed plan of care and formulated plan with Dr. Cleveland. Subjective Subjective Date/Time Seen: 05/29/19 12:44 Patient reports: no new complaints, feels better, pain is less, tolerating liquids well (full liquids), voiding w/o difficulty, flatus and bowel movement (yesterday) Interval history: Patient reports feeling well today. Denies any abdominal pain, nausea, vomiting, or bloating. S/t perc. drain placement yesterday. Patient is tolerating full liquids well. Reports flatus and BM yesterday. No other complaints at this time. Review of Systems Review of Systems: All systems reviewed & are unremarkable except as noted in HPI and below Exam Const: General: comfortable, no acute distress, alert and awake Orientation/consciousness: patient oriented x3 GI: Inspection:
--- NOTE | 2019-05-29 16:09 | PM.DS ---
DS: Diagnosis Admitting Diagnosis Admitting Diagnosis: Diverticulitis of large intestine with perforation and abscess without bleeding Discharge Diagnosis (1) Diverticulitis of colon with perforation: Onset Date: ~05/20/19 Qualifiers: Diverticulitis bleeding: unspecified bleeding status Qualified Code(s): K57.20 - Diverticulitis of large intestine with perforation and abscess without bleeding Code(s): K57.20 - Diverticulitis of large intestine with perforation and abscess without bleeding Status: Acute (2) CAD (coronary artery disease): Qualifiers: Coronary Disease-Associated Artery/Lesion type: [place] artery [place] vs. transplanted heart: [place] heart Associated angina: without angina Qualified Code(s): I25.10 - Atherosclerotic heart disease of [place] coronary artery without angina pectoris Code(s): I25.10 - Atherosclerotic heart disease of [place] coronary artery without angina pectoris Status: Acute (3) GERD (gastroesophageal reflux disease): Qualifiers: Esophagitis presence: esophagitis presence not specified Qualified Code(s): K21.9 - Gastro-esophageal reflux disease without esophagitis Code(s): K21.9 - Gastro-esophageal reflux disease without esophagitis Status: Acute (4) Rheumatoid arthritis: Qualifiers: Rheumatoid arthritis location: unspecified site Rheumatoid factor presence: unspecified presence Qualified Code(s): M06.9 - Rheumatoid arthritis, unspecified Code(s): M06.9 - Rheumatoid arthritis, unspecified Status: Acute DS: Summary Hospital Course Reason for hospitalization: Abdominal pain x1 week with nausea, vomiting and fever. Hospital Course: Date of Service of Discharge: May 29, 2019. History of Present Illness: Patient is a 69-year-old gentleman with known coronary artery disease, hyperlipidemia, rheumatoid arthritis and previous history of diverticulitis who presented to the emergency room with a 1 week history of right lower quadrant abdominal pain. Patient reports pain was initially intermittent. Pain worsened over the week prior to presentation particularly the Tuesday, Tuesday and Tuesday prior to admission. Patient reports pain was so severe he decided come into the emergency room. He did note dry heaves on Tuesday. No bowel movement on the weekend prior to presentation. He did have fever up to 100. No urinary symptoms. He does mention having 2 previous episodes of diverticulitis as an outpatient with the last being within the last 2 years. In the emergency room, findings were consistent with diverticulitis with microperforation. As result, he was admitted for further evaluation and treatment. Course in Hospital: Patient was admitted to the medical floor where he remained for the duration of his stay. He was initially placed NPO with IV Zosyn and IV fluids started. Given the microperforation, General surgery was consulted and did follow throughout his stay. Patient initially was having steady decrease in WBC count. Unfortunately, WBC began to gradually increase on 05/25/2019. With continuing increase in WBC despite other symptoms improving, repeat CT scan was done on 05/26/2019 with a 4.3 x 3.2 cm gas containing. Sigmoid fluid collection and 5.2 x 1.9 cm bilobed fluid collection seen at the anterior/superior aspect of the urinary bladder with additional smaller adjacent pelvic fluid collections noted. Decision was made to have percutaneous drain placed by Interventional Radiology but could not be done on the weekend. Patient was stable to wait until Tuesday, May 28, 2019. Patient did have percutaneous drain placed by Interventional Radiology on 05/28/2019 without difficulties. Fluid was sent for culture and pending at time of discharge. Previously drawn blood cultures were final negative at discharge. WBC did decrease after placement of drain down to 15.3 by the time of discharge. Patient had been on
== END 2019-05-29 19:30 | disposition home or self-care (01) | DRG 392 ==
LOC: ANHED 19:21 → ANH3MEDSUR 22:04
PROVIDERS: General Practice; Radiology Diagnostic Radiology; Surgery; Admitting Provider Internal Medicine; Emergency Provider Emergency Medicine; PCP Family Medicine; Visit Provider Hospitalist
DX: K57.20 Diverticulitis of large intestine with perforation and abscess without bleeding (principal); I25.10 Atherosclerotic heart disease of native coronary artery without angina pectoris; E78.5 Hyperlipidemia, unspecified; M06.9 Rheumatoid arthritis, unspecified; K21.9 Gastro-esophageal reflux disease without esophagitis; I25.2 Old myocardial infarction; F17.200 Nicotine dependence, unspecified, uncomplicated; Z79.899 Other long term (current) drug therapy
CPT/HCPCS: 36415; 74177; 75989; 80048; 80053; 81001; 83605; 83690; 83735; 85025; 85027; 85610; 85730; 87040; 87070; 87075; 87077; 87186; 87205; 96361; 96365; 96375; 99285; A9270; C1729; C1769; J1170; J2250; J2405; J2543; J3010; J7030; J7120; Q9967

== ENCOUNTER 2019-06-05 09:55 | Outpatient (CLI) | payer MEDICARE, SELFPAY ==
[2019-06-05 10:16] LABS: Hematocrit 44.9 % (42.0-52.0); Hemoglobin 14.2 g/dL (14.0-18.0); Mean Corpuscular HGB Conc 31.6 g/dl (32-36); Mean Corpuscular Hemoglobin 29.5 pg (26-34); Mean Corpuscular Volume 93.2 fl (80-100); Mean Platelet Volume 9.7 fl (7.4-10.4); Platelet Count Result 376 k/mm3 (150-375); Red Blood Count 4.82 M/mm3 (4.6-6.20); Red Cell Distribution Width 13.3 % (11.5-14.5); White Blood Count 12.7 K/mm3 (4.5-10.0)
[2019-06-05 10:35] LABS: Blood Urea Nitrogen 20 mg/dL (9-20); Calcium 9.2 mg/dL (8.4-10.2); Carbon Dioxide 34 mmol/L (22-30); Chloride 102 mmol/L (98-107); Estimated Glomerular Filt Rate > 60; Glucose 89 mg/dL (75-110); Potassium 4.7 mmol/L (3.4-5.0); Sodium 136 mmol/L (137-145)
== END 2019-06-05 09:56 | disposition home or self-care (01) ==
PROVIDERS: PCP Family Medicine; Visit Provider Hospitalist
DX: K57.20 Diverticulitis of large intestine with perforation and abscess without bleeding (principal)
CPT/HCPCS: 36415; 80048; 85027

== ENCOUNTER 2021-08-16 21:06 | Emergency (ER) | payer MEDICARE, SELFPAY ==
--- NOTE | ~2021-08-16 | CT_ITS ---
Patient Name: Patient Name MR#: Patient MRN Accession#: Accession Numbers EXAMINATION: CTA brain carotid DATE: 08/16/2021 21:27 INDICATION: R facial weakness TECHNIQUE: Computed tomographic angiography (CTA) of the head was performed without and with 100 mL O mnipaque-300 intravenous contrast. CTA of the neck was performed with intravenous contrast. Automated exposure control and iterative reconstruction technique were employed. The dose-length product was 1 201.35 mGy-cm. Maximum intensity projection and volume rendered 3D-reconstructions were created by porsche garcia technologist on a separate workstation. COMPARISON: CT brain, same date. FINDINGS: CTA NECK: Aortic arch and proximal great vessels: Atherosclerotic calcifications at the visualized aortic arch and proximal great vessels. Right common carotid, carotid bifurcation, and internal carotid artery: Mild calcified atheroscleroti c plaque at the carotid bifurcation.There is 0% stenosis of the proximal right internal carotid arter y relative to normal distal artery lumen diameter (NASCET criteria). Left common carotid, carotid bifurcation, and internal carotid artery: Mild calcified atherosclerotic plaque at the carotid bifurcation.There is 0% stenosis of the proximal left internal carotid artery relative to normal distal artery lumen diameter (NASCET criteria). Vertebral arteries: No significant plaque or stenosis. Other findings: Emphysematous change in the lungs. Postsurgical change from prior CABG. Subcentimeter thyroid nodules. CTA HEAD: No large vessel occlusion, aneurysm, high flow vascular malformation, nidus or extravasation. Mild st enosis of the proximal left M1 segment. Moderate-severe stenosis of multiple left M1 segment branch v essels. Moderate calcified plaques in the cavernous portion of the carotids, without significant sten osis. IMPRESSION: 1. No large vessel occlusion. 2. Moderate-severe stenoses of multiple left M1 segment branch vessels. 3. No significant carotid stenosis. Reviewed, dictated and finalized at location K.
--- NOTE | ~2021-08-16 | XR_ITS ---
EXAMINATION: XR chest 1V portable DATE: 08/16/2021 21:43 INDICATION: Right facial weakness. TECHNIQUE: A single frontal view of the chest was obtained. COMPARISON: Chest 2 views 07/05/2015, CT abdomen and pelvis 05/26/2019 FINDINGS: There is mild atelectasis at left lung base. Taylor B-lines are noted, consistent with mild pulmonary edema. No pleural effusion or pneumothorax. There is mild elevation of left hemidiaphragm. The heart size is normal. Median sternotomy wires and mediastinal surgical clips are seen, likely fr om prior coronary artery bypass grafting. IMPRESSION: 1. Mild pulmonary edema. 2. Mild atelectasis at left lung base. Reviewed, dictated and finalized at location A.
--- NOTE | ~2021-08-16 | CT_ITS ---
EXAMINATION: CT brain wo con DATE: 08/16/2021 21:26 INDICATION: R facial weakness . TECHNIQUE: Computed tomography (CT) of the head was performed without intravenous contrast. The mA wa s adjusted according to patient size. Iterative reconstruction technique was employed. The dose-lengt h product was 605.33 mGy-cm. COMPARISON: None FINDINGS: No acute intracranial hemorrhage or extra-axial fluid collection. No hydrocephalus, mass, or herniation. Loss of the left insular cortical ribbon. Loss of ward-white density differentiation in the posterior left frontal lobe. Slight hyperdensity of the left M2 segment may reflect a hyperdense MCA sign. Unremarkable dural venous sinus attenuation. No acute osseous abnormality. Retention cyst or polyp in the left frontal sinus, otherwise the aerated spaces are clear. Mild atrophy. Moderate patchy chronic white matter changes. Atherosclerotic intracranial calcificatio ns. Likely small arachnoid cyst in the left middle cranial fossa. IMPRESSION: Findings concerning for acute left MCA territory infarct. Results reported telephonically to Dr. Lockwood by Dr. Card at 9:33 PM on 08/16/2021. Reviewed, dictated and finalized at location K. IMPRESSION: Findings concerning for acute left MCA territory infarct. Results reported telephonically to Dr. Lockwood by Dr. Card at 9:33 PM on 022.
--- NOTE | 2021-08-16 21:08 | ECG_ITS ---
Measurements Intervals [place] Rate: 82 P: 57 AK: 227 QRS: -72 QRSD: 150 T: 33 QT: 400 QTc: 468 Interpretive Statements SINUS RHYTHM WITH FIRST DEGREE AV BLOCK RIGHT BUNDLE BRANCH BLOCK [120+ ms QRS DURATION, UPRIGHT V1, 40+ ms S IN I/aVL/V4/V5/V6] INFERIOR MYOCARDIAL INFARCTION , OF INDETERMINATE AGE [40+ ms Q WAVE AND/OR ST/T ABNORMALITY IN II/aVF] ABNORMAL ECG NO PREVIOUS ECG AVAILABLE FOR COMPARISON Electronically Signed On 08-17-2021 10:23:02 CDT by Garrett Garrison M.D.
[2021-08-16 21:14] LABS: Glucose Point of Care 92 mg/dl (65-105)
[2021-08-16 21:26] VITALS: PULSE 106; O2SAT 94
[2021-08-16 21:27] VITALS: BP 129/86; BP 134/84; PULSE 82; PULSE 90; RESP 16; RESP 19; TEMP 36.8; O2SAT 95; O2SAT 98
[2021-08-16 21:30] VITALS: PULSE 92; RESP 20
[2021-08-16 21:30] LABS: Estimated Glomerular Filt Rate > 60
[2021-08-16 21:31] VITALS: BP 134/84; PULSE 92; RESP 20; O2SAT 97
[2021-08-16 21:40] VITALS: BP 134/84; PULSE 92; RESP 20; O2SAT 97
[2021-08-16 21:45] LABS: Basophils Absolute Auto 0.1 K/mm3 (0.0-0.1); Basophils Percent Auto 0.4 % (0.2-1.2); Eosinophils Absolute Auto 0.2 K/mm3 (0-0.3); Eosinophils Percent Auto 1.5 % (0-4.4); Hemoglobin 12.5 g/dL (14.0-18.0); Immature Granulocyte Absolute 0.05 K/mm3 (0.00-0.031); Immature Granulocyte Percent A 0.4 % (0-0.5); Lymphocytes Absolute Auto 4.33 K/mm3 (0.9-3.2); Lymphocytes Percent Auto 32.1 % (18.3-44.2); Mean Corpuscular HGB Conc 31.3 g/dl (32-36); Mean Corpuscular Volume 95.9 fl (80-100); Mean Platelet Volume 10.4 fl (7.4-10.4); Monocytes Absolute Auto 0.8 K/mm3 (0.1-0.6); Monocytes Percent Auto 5.6 % (2.6-8.5); Neutrophils Absolute Auto 8.1 K/mm3 (1.3-6.7); Platelet Count Result 181 k/mm3 (150-375); Red Blood Count 4.17 M/mm3 (4.6-6.20); Red Cell Distribution Width 12.7 % (11.5-14.5); White Blood Count 13.5 K/mm3 (4.5-10.0)
--- NOTE | 2021-08-16 21:45 | ED.NEUROSD ---
HPI - Neuro Symptoms/Deficit General Chief Complaint: Neuro Symptoms/Deficit Stated Complaint: possible stroke symptoms Time Seen by Provider: 08/16/21 21:07 Source: patient, family, EMS and old records reviewed History of Present Illness HPI Narrative: Patient presents with altered mental status and slurred speech. Patient was on the phone with a friend around 8:00 this evening started acting confused and slurring his words EMS was called and he was transported the ER for further evaluation. EMS called code stroke in route. Patient is normally alert and oriented x4 EMS noted alert and oriented x2. Patient is unsure as to why he is here in the emergency room Related Data Home Medications Medication Instructions Recorded Confirmed aspirin 81 mg tablet,delayed 81 mg PO DAILY 05/21/19 05/21/19 release diltiazem HCl 30 mg tablet 30 mg PO QID 05/21/19 05/21/19 isosorbide mononitrate 60 mg 60 mg PO DAILY 05/21/19 05/21/19 tablet,extended release 24 hr metoprolol tartrate 25 mg tablet 25 mg PO BID 05/21/19 05/21/19 nitroglycerin 0.4 mg sublingual 0.4 mg sublingual ONCE PRN Chest 05/21/19 05/21/19 tablet (Nitrostat) Pain prednisone 2.5 mg tablet 2.5 mg PO DAILY 05/21/19 05/21/19 Allergies Allergy/AdvReac Type Severity Reaction Status Date / Time No Known Allergies Allergy Verified 08/16/21 21:35 Review of Systems Review of Systems: ROS unobtainable: Yes other (Patient is confused) [facility] Past Medical History Medical History (Updated 08/17/21 @ 00:00 by Background Daperla) GERD (gastroesophageal reflux disease) History of angina Hyperlipidemia Myocardial infarction Rheumatoid arthritis Treated with Remicade infusions and takes daily low-dose prednisone. Surgical History Surgical History H/O colonoscopy History of cardiac catheterization Hx of CABG triple bypass Family History Family History Mother Carcinoma of colon Father Family history of malignant melanoma Sibling Acute myocardial infarction Social History Social History Social History: Patient is . He is a full code. He is a former smoker but cannot tell me how much or for how long he smoked. He also has previous alcohol use but will not quantify. Smoking status: Light tobacco smoker Tobacco type: cigarettes Smoking end date: 03/14/14 Alcohol intake: current Substance use: never Additional occupation/education comments: He is retired from [employer]. Gender identity (if verbalized by the patient): Male Spiritual care concerns: No Agree to blood products: Yes Exam Narrative: GENERAL: Well-appearing, well-nourished, and in no acute distress. HEAD: Normocephalic, atraumatic. EYES: PERRLA and EOMI. ENT: Nares clear, no rhinorrhea or epistaxis. Mucous membranes moist. NECK: Supple. No masses. No JVD CHEST: Clear to auscultation. No respiratory distress. No wheezes rales or rhonchi HEART: Regular rate and rhythm. No murmur heard. Normal peripheral pulses. ABDOMEN: Soft, nontender, nondistended, normal active bowel sounds. EXTREMITIES: Normal range of motion. No edema. SKIN: Warm, dry, no rash. NEURO: Patient has right facial droop loss of the right nasolabial fold. He is slurring his words patient has 5 out of 5 strength in all extremities there is no pronator drift. Alert and oriented to location and self PSYCH: Normal mood and affect. Course Consultations Consultation #1: Case discussed with neurology at [facility] given time of onset neuro deficits patient be appropriate for tPA. tPA initiated and patient transported to the [facility] for further evaluation. Accepted by Dr. Montgomery from the [facility] emergency room Date: 08/16/21 Time: 22:11 Vital Signs Vital signs: Vital Signs Pulse Rate 106 H 08/16/21 21:26 Puls
[2021-08-16 21:53] LABS: Alanine Aminotransferase 35 U/L (6-50); Albumin Level 3.7 g/dL (3.5-5.1); Alkaline Phosphatase 61 U/L (38-126); Anion Gap 10 mmol/L (8-16); Aspartate Amino Transferase 31 U/L (17-59); Bilirubin,Total 0.3 mg/dL (0.2-1.3); Blood Urea Nitrogen 19 mg/dL (9-20); Calcium 8.3 mg/dL (8.4-10.2); Carbon Dioxide 27 mmol/L (22-30); Chloride 99 mmol/L (98-107); Estimated CRCL calculation 64 ml/min; Estimated Glomerular Filt Rate > 60; Glucose 95 mg/dL (65-110); INR 1.2; Potassium 4.1 mmol/L (3.4-5.0); Prothrombin Time 14.5 Seconds (11.1-14.7); Sodium 136 mmol/L (137-145)
[2021-08-16 21:57] LABS: Atypical Lymphocytes Present; Platelet Estimate Adequate (Adequate)
[2021-08-16 21:58] LABS: Appearance Urine Clear (Clear); Bilirubin Urine Negative (Negative); Color Urine Yellow (Yellow); Glucose Urine UA Negative (Negative); Ketones Urine Negative (Negative); Leukocyte Esterase Ur Negative LEU/UL (Negative); Nitrate Urine Negative (Negative); Protein Urine Negative (Negative); Specific Grav Ur 1.015 (1.001-1.035); Urobilinogen Urine 0.2 mg/dL (<2.0)
[2021-08-16 21:59] LABS: Add Urine Microscopic? YES; Blood Urine Trace-Intact (Negative)
[2021-08-16 22:01] LABS: Mucus Urine Rare /lpf; Squamous Epithelial Cell Urine Rare /hpf (Few); WBC Urine 0-3 /hpf
[2021-08-16 22:05] LABS: Troponin I < 0.012 ng/mL (0.000-0.034)
[2021-08-16 22:13] LABS: Amphetamine Screen Urine Negative (Negative); Barbiturate Screen Urine Negative (Negative); Benzodiazepines Screen Urine Negative (Negative); Cannabinoid Screen Urine Negative (Negative); Cocaine Screen Urine Negative (Negative); Methadone Screen Urine Negative (Negative); Opiate Screen Urine Negative (Negative); Phencyclidine Screen Urine Negative (Negative)
--- NOTE | 2021-08-16 22:13 | PC.NURSE ---
Contacted patient sister Marisol, to speak with her about TPA and patients diagnosis and his plan of care. She states she does want the patient to get TPA but her sister did not. Patient does not have any POA. Marisol, patients sister speaking with time cycle operator. Patient sister Emilie and her other sister did give verbal consent, witnessed by 2 RNs and ERP.
[2021-08-16 22:30] LABS: Ethanol < 10 mg/dL (<10)
--- NOTE | 2021-08-16 22:30 | PC.NURSE ---
Report to RICHARD Peacock at [facility] ER.
[2021-08-16 22:42] VITALS: BP 124/88; PULSE 76; RESP 20; TEMP 36.9; O2SAT 93
== END 2021-08-16 22:37 | disposition short-term general hospital (02) ==
PROVIDERS: Emergency Provider Emergency Medicine; PCP Family Medicine
DX: R41.82 Altered mental status, unspecified (principal); R29.810 Facial weakness; K21.9 Gastro-esophageal reflux disease without esophagitis; E78.5 Hyperlipidemia, unspecified; I25.2 Old myocardial infarction; M06.9 Rheumatoid arthritis, unspecified; Z95.1 Presence of aortocoronary bypass graft; Z87.891 Personal history of nicotine dependence; I66.02 Occlusion and stenosis of left middle cerebral artery; I44.0 Atrioventricular block, first degree; I45.10 Unspecified right bundle-branch block; R94.31 Abnormal electrocardiogram [ECG] [EKG]; Z79.82 Long term (current) use of aspirin; R29.705 NIHSS score 5
CPT/HCPCS: 37195; 51701; 70450; 70496; 70498; 71045; 80053; 80307; 81001; 82948; 84484; 85025; 85610; 85730; 93005; 99285; J2997; Q9967

== ENCOUNTER 2021-12-21 11:43 | Outpatient (CLI) | payer MEDICARE, SELFPAY ==
--- NOTE | ~2021-12-21 | XR_ITS ---
EXAMINATION: HAND-ADONAY ARTHRITIS 3+VIEWS DATE: 12/21/2021 13:15 INDICATION: Multiple joint pain at the bilateral hands TECHNIQUE: Posteroanterior, lateral, and oblique views of the left and of the right hands as well as a ballcatchers view of both hands were obtained. COMPARISON: None. FINDINGS: Diffuse osteopenia. Left hand: Advanced osteoarthritis at the left wrist joint with osteolysis at the scaphoid and lunate as well as prominence of reticular cystic change along the distal radius. Moderate osteoarthritis at the midcar pal joint and mild osteoarthritis at the triscaphe, first carpometacarpal and multiple metacarpophala ngeal and interphalangeal joints. No fracture. Osseous excrescences at the juxtaposed ulnar side of t he proximal fourth metacarpal diaphysis and radial sides of the fifth metacarpal diaphysis. Right hand: Prominent widening of the scapholunate interval. Alignment is otherwise normal. Mild polyarticular os teoarthritis at the right wrist, triscaphe, first carpometacarpal and multiple metacarpophalangeal an d interphalangeal joints. IMPRESSION: 1. Widening of the right scapholunate interval consistent with scapholunate ligament tear/insufficien cy. 2. 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 Reviewed, dictated and finalized at location B. IMPRESSION: 1. Widening of the right scapholunate interval consistent with scapholunate lig ament tear/insufficiency. 2. Polyarticular osteoarthritis mild at multiple joints in the right wrist and bilateral hands and atypically severe at the left wrist and midcarpal joints, t he latter with pattern suggesting chronic scapholunate advanced collapse (SLAC) wrist related to tear/insufficiency the contralateral left scapholunate ligame nt.
--- NOTE | ~2021-12-21 | XR_ITS ---
EXAMINATION: XR foot LT standing 2V DATE: 12/21/2021 13:15 INDICATION: Multiple joint pain at the bilateral feet. TECHNIQUE: 1. Standing dorsoplantar and lateral views of the left foot were obtained. 2. Standing dorsoplantar and lateral views of the right foot were obtained. COMPARISON: None. FINDINGS: Mild bilateral pes planus, left greater than right, and mild left hindfoot valgus. No fracture. Moder ate osteoarthritis at the right first tarsal metatarsal joint. Additional mild osteoarthritis at a fe w additional bilateral tarsometatarsal joints and a few bilateral interphalangeal joints. No erosions to suggest inflammatory arthritis. Soft tissues are unremarkable. IMPRESSION: 1. Mild bilateral pes planus, left greater than right and mild left hindfoot valgus. 2. Polyarticular osteoarthritis, moderate at the left first tarsal metatarsal joint and mild at a few additional joints in the bilateral mid and forefeet. Reviewed, dictated and finalized at location B. IMPRESSION: 1. Mild bilateral pes planus, left greater than right and mild left hindfoot va lgus. 2. Polyarticular osteoarthritis, moderate at the left first tarsal metatarsal j oint and mild at a few additional joints in the bilateral mid and forefeet.
--- NOTE | ~2021-12-21 | XR_ITS ---
EXAMINATION: XR foot RT standing 2V DATE: 12/21/2021 13:15 INDICATION: Multiple joint pain at the bilateral feet. TECHNIQUE: 1. Standing dorsoplantar and lateral views of the left foot were obtained. 2. Standing dorsoplantar and lateral views of the right foot were obtained. COMPARISON: None. FINDINGS: Mild bilateral pes planus, left greater than right, and mild left hindfoot valgus. No fracture. Moder ate osteoarthritis at the right first tarsal metatarsal joint. Additional mild osteoarthritis at a fe w additional bilateral tarsometatarsal joints and a few bilateral interphalangeal joints. No erosions to suggest inflammatory arthritis. Soft tissues are unremarkable. IMPRESSION: 1. Mild bilateral pes planus, left greater than right and mild left hindfoot valgus. 2. Polyarticular osteoarthritis, moderate at the left first tarsal metatarsal joint and mild at a few additional joints in the bilateral mid and forefeet. Reviewed, dictated and finalized at location B. IMPRESSION: 1. Mild bilateral pes planus, left greater than right and mild left hindfoot va lgus. 2. Polyarticular osteoarthritis, moderate at the left first tarsal metatarsal j oint and mild at a few additional joints in the bilateral mid and forefeet.
[2021-12-21 15:22] LABS: Add Urine Microscopic? YES; Appearance Urine Cloudy (Clear); Bilirubin Urine Negative (Negative); Blood Urine Negative (Negative); Calcium Oxalate Crystals Urine Present /hpf; Color Urine Amber (Yellow); Glucose Urine UA Negative (Negative); Ketones Urine Negative (Negative); Leukocyte Esterase Ur Negative LEU/UL (Negative); Mucus Urine Few /lpf; Nitrate Urine Negative (Negative); Protein Urine 2+ mg/dL (Negative); Specific Grav Ur 1.029 (1.001-1.035); Urobilinogen Urine Negative mg/dL (<2.0); WBC Urine 0-3 /hpf
== END 2021-12-21 11:44 | disposition home or self-care (01) ==
PROVIDERS: PCP Family Medicine; Visit Provider Internal Medicine
DX: K57.20 Diverticulitis of large intestine with perforation and abscess without bleeding (principal); M19.90 Unspecified osteoarthritis, unspecified site; M21.42 Flat foot [pes planus] (acquired), left foot; M21.41 Flat foot [pes planus] (acquired), right foot; M19.072 Primary osteoarthritis, left ankle and foot; M19.071 Primary osteoarthritis, right ankle and foot; M19.042 Primary osteoarthritis, left hand; M19.041 Primary osteoarthritis, right hand
CPT/HCPCS: 73130; 73620; 81001

== ENCOUNTER 2021-12-23 10:57 | Outpatient (CLI) | payer MEDICARE, SELFPAY ==
[2021-12-23 11:18] LABS: Hematocrit 34.2 % (42.0-52.0); Hemoglobin 10.6 g/dL (14.0-18.0); Mean Corpuscular Hemoglobin 30.6 pg (26-34); Mean Corpuscular Volume 98.8 fl (80-100); Mean Platelet Volume 9.1 fl (7.4-10.4); Platelet Count Result 403 k/mm3 (150-375); Red Blood Count 3.46 M/mm3 (4.6-6.20); Red Cell Distribution Width 14.6 % (11.5-14.5); White Blood Count 16.2 K/mm3 (4.5-10.0)
[2021-12-23 13:50] LABS: Alanine Aminotransferase 45 U/L (6-50); Albumin Level 4.5 g/dL (3.5-5.1); Alkaline Phosphatase 112 U/L (38-126); Anion Gap 12 mmol/L (8-16); Aspartate Amino Transferase 34 U/L (17-59); Bilirubin,Total 0.5 mg/dL (0.2-1.3); Blood Urea Nitrogen 22 mg/dL (9-20); CRP 1.7 mg/dL (<1.0); Calcium 9.2 mg/dL (8.4-10.2); Carbon Dioxide 27 mmol/L (22-30); Chloride 99 mmol/L (98-107); Estimated Glomerular Filt Rate > 60; Glucose 101 mg/dL (65-110); Potassium 4.6 mmol/L (3.4-5.0); Sodium 138 mmol/L (137-145)
[2021-12-23 14:15] LABS: Hepatitis B Surface Antigen Negative (Negative)
[2021-12-23 14:28] LABS: Rheumatoid Factor 21.4 IU/ML (<12)
[2021-12-23 14:33] LABS: Hepatitis B Surface Anti Res Negative; Hepatitis C Virus Antibody Negative (Negative)
[2021-12-23 14:42] LABS: Erythrocyte Sedimentation Rate 63 mm/hr (0-20)
[2021-12-25 22:32] LABS: NIL 0.03 IU/mL; Quantiferon TB Plus, 1T NEGATIVE (NEGATIVE)
== END 2021-12-23 10:58 | disposition home or self-care (01) ==
PROVIDERS: Internal Medicine; PCP Family Medicine; Visit Provider Internal Medicine Hematology & Oncology
DX: Z51.81 Encounter for therapeutic drug level monitoring (principal); Z79.899 Other long term (current) drug therapy; Z00.00 Encounter for general adult medical examination without abnormal findings
CPT/HCPCS: 36415; 80053; 85027; 85652; 86038; 86140; 86430; 86480; 86706; 86803; 87340

== ENCOUNTER 2022-04-15 15:00 | Outpatient (RCR) | payer MEDICARE, SELFPAY ==
[2022-01-08 09:06] VITALS: PULSE 99
== END 2022-04-15 18:13 | disposition home or self-care (01) ==
LOC: ANHCPREHAB 15:00
PROVIDERS: PCP Family Medicine; Visit Provider Nurse Practitioner Adult Health
DX: Z95.2 Presence of prosthetic heart valve (principal)
CPT/HCPCS: 36415; 80053; 81003; 85027; 85652; 86140; 93798

== ENCOUNTER 2022-06-21 15:34 | Outpatient (CLI) | payer MEDICARE, SELFPAY ==
--- NOTE | ~2022-06-21 | US_ITS ---
US renal BI 06/21/2022 16:04 Procedure: Realtime transabdominal ultrasound of the kidneys and bladder. Indication: Abnormal lab studies. Comparison: No prior studies for comparison. Findings: Renal echotexture is normal bilaterally without hydronephrosis, contour deforming mass or r enal calculus. The right kidney measures 10.7 cm and left kidney measures 10.5 cm. There are bilatera l renal cysts, largest on the right measuring 1.9 cm and on the left measuring 1.2 cm. Bladder is not well distended for evaluation. Impression: 1: Bilateral renal cysts. Reviewed, dictated and finalized at location B. Impression: 1: Bilateral renal cysts.
== END 2022-06-21 15:35 | disposition home or self-care (01) ==
LOC: ANHIMG 15:37
PROVIDERS: PCP Family Medicine; Visit Provider Internal Medicine Nephrology
DX: M06.9 Rheumatoid arthritis, unspecified (principal); R79.89 Other specified abnormal findings of blood chemistry; N28.1 Cyst of kidney, acquired
CPT/HCPCS: 76775

== ENCOUNTER 2022-08-24 11:38 | Outpatient (CLI) | payer MEDICARE, SELFPAY ==
[2022-08-24 13:18] LABS: Albumin Level 4.6 g/dL (3.5-5.1); Anion Gap 8 mmol/L (8-16); Blood Urea Nitrogen 25 mg/dL (9-20); Calcium 9.7 mg/dL (8.4-10.2); Carbon Dioxide 30 mmol/L (22-30); Chloride 104 mmol/L (98-107); Estimated Glomerular Filt Rate > 60; Glucose 89 mg/dL (65-110); Phosphorus 4.2 mg/dL (2.5-4.5); Potassium 4.3 mmol/L (3.4-5.0); Sodium 142 mmol/L (137-145)
[2022-08-24 13:28] LABS: Complement C3 121 mg/dL (88-165)
[2022-08-24 21:13] LABS: Creatinine Urine 308.6 mg/dL; Total Protein Urine Random 9 mg/dL; Ur Ttl Prot Creatinine Ratio 0.03 mg/mg (0-0.20)
[2022-08-24 21:26] LABS: Sodium Urine Random 158 meq/L
[2022-08-27 01:37] LABS: Albumin 3.9 g/dL (3.8-4.8); Alpha 1 Globulin 0.3 g/dL (0.2-0.3); Alpha 2 Globulin 0.9 g/dL (0.5-0.9); Beta 1 Globulin 0.5 g/dL (0.4-0.6); Gamma Globulin 1.5 g/dL (0.8-1.7); Protein, Total 7.6 g/dL (6.1-8.1)
[2022-08-28 09:27] LABS: Anti Glomerular Basement Memb <1.0 AI (<1.0)
[2022-08-30 22:19] LABS: ANCA Screen Negative (Negative)
[2022-08-31 15:37] LABS: Creatinine, Random Urine 277 mg/dL (20-320); Total Protein/Creatinine Ratio 79 mg/g creat (25-148)
== END 2022-08-24 11:39 | disposition home or self-care (01) ==
PROVIDERS: PCP Family Medicine; Visit Provider Internal Medicine Nephrology
DX: M06.9 Rheumatoid arthritis, unspecified (principal); R79.89 Other specified abnormal findings of blood chemistry
CPT/HCPCS: 36415; 80069; 82570; 83520; 84155; 84156; 84165; 84166; 84300; 86036; 86160

== ENCOUNTER 2022-12-21 07:00 | Outpatient (CLI) | payer MEDICARE, SELFPAY ==
[2022-12-21 07:45] LABS: Albumin Level 4.3 g/dL (3.5-5.1); Anion Gap 3 mmol/L (8-16); Blood Urea Nitrogen 22 mg/dL (9-20); Calcium 8.9 mg/dL (8.4-10.2); Carbon Dioxide 32 mmol/L (22-30); Chloride 103 mmol/L (98-107); Estimated Glomerular Filt Rate > 60; Glucose 100 mg/dL (65-110); Phosphorus 3.3 mg/dL (2.5-4.5); Potassium 3.9 mmol/L (3.4-5.0); Sodium 138 mmol/L (137-145)
[2022-12-21 08:07] LABS: Creatinine Urine 336.5 mg/dL; Total Protein Urine Random 15 mg/dL; Ur Ttl Prot Creatinine Ratio 0.04 mg/mg (0-0.20)
== END 2022-12-21 07:01 | disposition home or self-care (01) ==
PROVIDERS: PCP Family Medicine; Visit Provider Internal Medicine Nephrology
DX: N18.2 Chronic kidney disease, stage 2 (mild) (principal)
CPT/HCPCS: 36415; 80069; 82570; 84156

== ENCOUNTER 2023-06-17 09:27 | Outpatient (CLI) | payer MEDICARE, SELFPAY ==
[2023-06-17 10:53] LABS: Total Protein Urine Random 10 mg/dL
[2023-06-17 11:10] LABS: Anion Gap 4 mmol/L (4-12); Blood Urea Nitrogen 25 mg/dL (9-20); Carbon Dioxide 28 mmol/L (22-30); Chloride 108 mmol/L (98-107); Estimated Glomerular Filt Rate 60; Glucose 93 mg/dL (65-110); Phosphorus 3.2 mg/dL (2.5-4.5); Potassium 4.2 mmol/L (3.4-5.0); Sodium 140 mmol/L (137-145)
[2023-06-17 13:09] LABS: Ur Ttl Prot Creatinine Ratio 0.05 mg/mg (0-0.20)
[2023-06-17 15:18] LABS: Creatinine Urine 190.8 mg/dL
== END 2023-06-17 09:28 | disposition home or self-care (01) ==
PROVIDERS: PCP Family Medicine; Visit Provider Internal Medicine Nephrology
DX: N18.2 Chronic kidney disease, stage 2 (mild) (principal)
CPT/HCPCS: 36415; 80069; 82570; 84156

== ENCOUNTER 2023-10-18 13:55 | Outpatient (CLI) | payer MEDICARE, SELFPAY ==
[2023-10-18 14:58] LABS: Albumin Level 4.3 g/dL (3.5-5.1); Anion Gap 11 mmol/L (4-12); Blood Urea Nitrogen 26 mg/dL (9-20); Calcium 9.2 mg/dL (8.4-10.2); Carbon Dioxide 25 mmol/L (22-30); Chloride 104 mmol/L (98-107); Estimated Glomerular Filt Rate > 60; Glucose 100 mg/dL (65-110); Phosphorus 3.5 mg/dL (2.5-4.5); Sodium 140 mmol/L (137-145)
[2023-10-18 15:02] LABS: Creatinine Urine 260.1 mg/dL; Total Protein Urine Random 21 mg/dL; Ur Ttl Prot Creatinine Ratio 0.08 mg/mg (0-0.20)
== END 2023-10-18 13:56 | disposition home or self-care (01) ==
PROVIDERS: PCP Family Medicine; Visit Provider Internal Medicine Nephrology
DX: N18.2 Chronic kidney disease, stage 2 (mild) (principal)
CPT/HCPCS: 36415; 80069; 82570; 84156

== ENCOUNTER 2023-12-14 14:23 | Outpatient (CLI) | payer MEDICARE, SELFPAY ==
[2023-12-14 15:05] LABS: Creatinine Urine 332.9 mg/dL; Total Protein Urine Random 10 mg/dL; Ur Ttl Prot Creatinine Ratio 0.03 mg/mg (0-0.20)
[2023-12-14 15:08] LABS: Albumin Level 4.1 g/dL (3.5-5.1); Anion Gap 6 mmol/L (4-12); Blood Urea Nitrogen 23 mg/dL (9-20); Carbon Dioxide 30 mmol/L (22-30); Chloride 104 mmol/L (98-107); Estimated Glomerular Filt Rate > 60; Glucose 92 mg/dL (65-110); Phosphorus 3.5 mg/dL (2.5-4.5); Potassium 4.2 mmol/L (3.4-5.0); Sodium 140 mmol/L (137-145)
== END 2023-12-14 14:24 | disposition home or self-care (01) ==
PROVIDERS: PCP Family Medicine; Visit Provider Internal Medicine Nephrology
DX: N18.2 Chronic kidney disease, stage 2 (mild) (principal)
CPT/HCPCS: 36415; 80069; 82570; 84156

== ENCOUNTER 2024-07-18 08:51 | Outpatient (CLI) | payer MEDICARE, SELFPAY ==
--- OUTSIDE RECORDS SUMMARY | 2024-07-18 09:09 | XMS_ITS | Encounter Summary ---
Author Organization [employer] Address [address] [place] [address] Care Team Providers Care Packing And Wrapping Supervisor Name Role Phone Jose D Stern MD Primary Care Provider [phone] Encounter Details Date Type Department Care Team (Late st Contact Info) Description 02/21/2006 Outpatient Historical [facility] [place] [facility] [address] 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
--- OUTSIDE RECORDS SUMMARY | 2024-07-18 09:09 | XMS_ITS | Encounter Summary ---
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) Óscar Gutierrez MD [address] [address] Phone: tel: fax: [address] [address] Phone: tel: fax: Referral ID Status Reason Start Date Expiration Date V isits Requested Visits Authorized [id number] Authorized 08/22/2023 09/20/2024 99 99 Encounter Details Date Type Department Care Team (Latest Contact Info) Description 07/16/2024 8:50 AM CDT - 07/16/2024 11:59 PM CDT Hospital Encounter [address] [address] 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 Never 02/08/2023 Q2: How many drinks containi ng alcohol do you have on a typical day when you are drinking? Patient does not drink Q3: How often do you have si x or more drinks on one occasion? Never 02/08/2023 PHQ-2 Answer Date Recorded PHQ-2 Total Score (If total score is 3 or more points, staff should administer the PHQ-9) 0 02/13/2024 Personal Safety Answer Date Recorded Have you ever been in or are you currently in a harmful physical or emotional relationship or is someone making you feel afraid or unsafe? 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 Gender Identity Not on file Sexual Orientation Not on file documented as of this encounter Last Filed Vital Signs Vital Sign Reading Time Taken Comments Blood Pressure 110/80 07/16/2024 12:25 PM CDT Pulse 88 07/16/2024 12:25 PM CDT Temperature 36.3 C (97.4 F) 07/16/2024 12:25 PM CDT Respiratory Rate 18 07/16/2024 12:25 PM CDT Oxygen Saturation 100% 07/16/2024 12:25 PM CDT Inhaled Oxygen Concentration - - Weight 75.8 kg (167 lb) 07/16/2024 8:55 AM CDT Height - - Body Mass Index 22.03 05/11/2024 2:48 PM CAUSTIC MIXER documented in this encounter Medications at Time of Discharge acetaminophen (TYLENOL) 325 mg tablet Take 2 tablets (650 mg total) by mouth every 6 (six) hours as needed for pain ascorbic acid (VITAMIN C) 100 mg tablet Take 1 tablet (100 mg total) by mouth daily aspirin 81 mg tablet take 1 tablet (81MG) by oral route every day 0 09/21/2011 atorvastatin (LIPITOR) 40 mg tabletIndication s:Dyslipidemia Take 1 tablet (40 mg total) by mouth daily 90 tablet 3 03/26/2024 03/26/2025 cholecalciferol (VITAMIN D-3) 400 unit capsule Take 1 tablet/capsule (400 Units total) by mouth daily hydrOXYchloroQUI NE (PLAQUENIL) 200 mg tablet Take 1 tablet (200 mg total) by mouth daily 02/27/2022 inFLIXimab (REMICADE) 100 mg injection Infuse into a venous catheter every 8 (eight) weeks multivitamin capsule Take 1 capsule by mouth daily nitroglycerin (NITROSTAT) 0.[address] TABLET UNDER THE TONGUE NEEDED FOR CHEST PAIN EVERY 5 MINUTES. 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)- Primary documented in this encounter Administered Medications Inactive Administered Medications - up to 3 most recent administrations Medication Order MAR Action Action Date Dose Rate Site acetaminophen (TYLENOL) tablet 650 mg 650 mg, oral, Once, On Tue07/16/24 at 0930, For 1 dose, Please give 30 minutes prior to infusion for infusion reaction prophylaxis.Indications:Rh eumatoid 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 factor (HCC) Given 07/16/2024 9:46 AM CDT 650 mg diphenhydrAMINE (BENADRYL) tab/cap 25 mg 25 mg, oral, Once, On Tue07/16/24 at 0930, For 1 dose, Give 30 minutes prior to infusion for infusion reaction prophylaxis.Indications:Rh eumatoid 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 factor (HCC) Given 07/16/2024 9:46 AM CDT 25 mg inFLIXimab (REMICADE) 400 mg in sodium chloride 0.9% 250 mL IVPB 400 mg, intravenous, Administer over 2 Hours, Once, On Tue07/16/24 at 1000, For 1 dose, Maintenance Dose every 8 weeks For 250 mL: lnititate therapy at 10mI/hour x 15 minutes then Increase to 20ml/hour x 15 minutes then Increase to 40ml/hour x 15 minutes then Increase to 80ml/hour x 15 minutes then Increase to 150ml/hour x 30 minutes then Increase to 250ml/hour x 30 minutes until infusion is completed FOR REACTIONS-STOP INFUSION. For 500 ml: Initiate therapy at 20 ml/hour x 15 minutes then Increase to 40 ml/hour x 15 minutes then Increase to 80 ml/hour x 15 minutes the Increase to 160 ml/hours x 15 minutes then Increase to 300 ml/hour x 30 minutes then Increase to 500 ml/hour until infusion is completed. FOR REACTIONS-STOP INFUSION. Use 1.2 micron filter or less, low-sorbing, low protein binding.Indications:Rheuma toid 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 factor (HCC) Rate/Dose Change 07/16/2024 11:40 AM CDT 250 mL/hr Rate/Dose Change 07/16/2024 11:10 AM CDT 150 mL /hr Rate/Dose Change 07/16/2024 10:55 AM CDT 80 mL/ hr documented in this encounter Orders Medications Ordered That Freedom ht Not Have Been Administered Count Last Ordered Date First Ordered Date sodium chloride 0.9% flush 10 mL 1 07/17/19 25 Nursing Count Last Ordered Date First Orde red Date HEIGHT AND WEIGHT 1 07/16/2024 ONCBCN NURSING COMMUNICATION [id number] 2 0 07/16/2024 VITAL SIGNS INTRA-INFUSION 1 07/16/2024 Appointment Requests Count Last Ordered Date Fi rst Ordered Date INFUSION APPT REQUEST 180 MIN 1 07/16/2024 documented in this encounter Care Teams Ged Instructor Relationship Specialty Start Date End Date David Parikh MD [address] [place] [address] PCP - General Family Medicine 09/03/21 Heriberto Aleman MD [address] [address] Consulting Physician Cardiology 09/03/21 Óscar Gutierrez MD [address] [address] Referring Physician Rheumatology 01/06/22 Laurita Martinez MD [address] [facility] [address] [place] [address] Referring Physician Nephrology 08/04/22 documented as of this encounter
--- OUTSIDE RECORDS SUMMARY | 2024-07-18 09:09 | XMS_ITS | Clinical Summary ---
Author Organization [facility] Address [address] [place] [address] Care Team Providers Care Senior Java Programmer Analyst Name Role Phone David Parikh MD Primary Care Provider Heriberto Aleman MD Unavailable [phone] Óscar Gutierrez MD Unavailable [phone] Laurita Martinez MD Unavailable [phone] Allergies No known active allergies Medications aspirin 81 mg tablet take 1 tablet (81MG) by oral route every day 0 09/21/2011 Active nitroglycerin (NITROSTAT) 0.[address] 1 TABLET UNDER THE TONGUE NEEDED FOR CHEST PAIN EVERY 5 MINUTES. MAX 3 TABLET DAILY 75 tablet 3 07/08/2021 Active multivitamin capsule Take 1 capsule by mouth daily Active ascorbic acid (VITAMIN C) 100 mg tablet Take 1 tablet (100 mg total) by mouth daily Active cholecalciferol (VITAMIN D-3) 400 unit capsule Take 1 tablet/capsul e (400 Units total) by mouth daily Active acetaminophen (TYLENOL) 325 mg tablet Take 2 tablets (650 mg total) by mouth every 6 (six) hours as needed for pain Active hydrOXYchloroQU INE (PLAQUENIL) 200 mg tablet Take 1 tablet (200 mg total) by mouth daily 02/27/2022 Active inFLIXimab (REMICADE) 100 mg injection Infuse into a venous catheter every 8 (eight) weeks Active atorvastatin (LIPITOR) 40 mg tabletIndicatio ns:Dyslipidemia Take 1 tablet (40 mg total) by mouth daily 90 tablet 3 03/26/2024 03/26/19 26 Active Active Problems Problem Noted Date Diagnosed Date Encounter for Medicare annual wellness exam 07/13 Assessment & Plan (08/09/2023 1:14 PM CDT): A(n) yearly Medicare Annual Wellness Visit has been performed today. Tomy Castellanos is not up to date on screening tests. He is in need of hepatitis B and Cholesterol screening. He is not up to date on needed preventative vaccinations; He is in need of varicella . We discussed healthy lifestyle habits, educational material has been given. Medications reviewed, changes documented as per the medical record and discussed with patient along with risks vs benefits. Return in 6 months Atypical mole 04/26/2023 Assessment & Plan (04/26/2023 1:44 PM HOME HEALTH CARE CASE MANAGER): Refer to plastic surgery. Given Dr. Wolf's name in [place]. Colon cancer screening 08/04/2022 Assessment & Plan (09/28/2022 2:04 PM CDT): Last colonoscopy maybe 5 years ago, normal per patient. Mother with colon cancer in her 60s. Will schedule colonoscopy for screening Assessment & Plan (08/07/2022 1:31 PM CDT): A(n) yearly Medicare Annual Wellness Visit has been performed today. Tomy Castellanos is not up to date on screening tests. He is in need of Colon cancer screening. He is not up to date on needed preventative vaccinations; He is in need of Tdap/Td and Zoster. We discussed healthy lifestyle habits, educational material has been given. Medications reviewed, changes documented as per the medical record and discussed with patient along with risks vs benefits. Return in 5 months Chronic diarrhea 07/10/2022 Assessment & Plan (09/28/2022 2:07 PM CDT): Diarrhea started 07/2022, no new medications, sick exposure, travel or changes in diet Stopped drinking milk and diarrhea stopped for last 3 weeks Currently having BM every 2 days, no hematochezia or melena, abdominal pain, fevers, chills, weight loss, n/v, dysphagia, odynophagia Family history mother with colon cancer in her 60s. Colonoscopy 5 years ago normal per patient. No records for review here KUB from 06/2022 showed no signs of obstruction Labs from 07/01/2022 showed mildly increased BUN of 29 otherwise normal CMP, chronically elevated white count 15.7, hemoglobin 12.1 with normal MCV Negative C diff, Cryptosporidium and Giardia, normal fecal fat, negative occult blood CRP elevated at 19 Plan Diarrhea likely infectious with what sounds like postinfectious lactose intolerance. 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 Would be a good question to run by the multiple spindle router operator Heri was refilled yesterday, hopefully will be there waiting at the pharmacy Coronary artery disease of n ative artery of [place] heart with stable angina pectoris 11/24/2016 S/P CABG (coronary artery bypass graft) 11/25/19 17 Rheumatoid arthritis of [facility] without rheumatoid factor 07/17/2015 Overview (06/17/2016): RHEUMATOID ARTHRITIS Assessment & Plan (05/21/2021 7:56 AM HOME HEALTH CARE CASE MANAGER): Chronic, stable on remicade q 6 week infusions. Continue to monitor. Labs today. Assessment & Plan (02/19/2021 9:12 AM HOME HEALTH CARE CASE MANAGER): Chronic, stable on remicade. Last infusion on 01/16/21 with q 6 week infusions. Continue to monitor. Labs today. Hyperlipidemia 12/23/2014 Overview (06/17/2016): HYPERLIPIDEMIA NEC/NOS Resolved Problems Problem Noted Date Diagnosed Date Resolved Date PFO (patent foramen ovale) 12/08/2021 0 04/26/2023 Respiratory failure, post-operative 12/08/2021 02/08/2023 Hospital discharge follow-up 09/06/2021 04/26/2023 Assessment & Plan (09/06/2021 2:08 PM CDT): I have reviewed the hospital record, medications, and relevant testing from Tomy Castellanos's recent admission. Complications and discharge plan have been noted, reviewed. Post-discharge testing has been ordered. Labs as ordered We will need additional records from recent hospital stay at [facility] Keep appointment with [facility] neurologist (09/17) and [facility] cardiothoracic surgeon (09/09) BP is controlled Prevnar-13 given today Will need colonoscopy, but we will address at follow up. Aortic aneurysm screen ordered It is not clear from what records I've received if PT and OT was ordered through home health. If not, I will want to order those Acute and subacute infective endocarditis 08/28/2021 04/26/2023 Hemiplegia and hemiparesis f ollowing cerebral infarction affecting right dominant side 08/28/2021 02/08/2023 Slurred speech 08/16/2021 04/26/2023 Referral of patient 05/21/2021 04/26/19 24 Assessment & Plan (05/21/2021 10:19 AM HOME HEALTH CARE CASE MANAGER): Referral form for [facility] medical group/noemi provided. Encounter for long-term (cur rent) use of high-risk medication 02/18/2021 04/26/2023 Assessment & Plan (05/21/2021 7:57 AM HOME HEALTH CARE CASE MANAGER): Long-term use of high-risk medication requiring regular monitoring. Labs re-ordered as he has not had them drawn from his February 2021 visit. No s/s of med tox or infection. Encouraged to work with PCP to make sure all recommended cancer screens and vaccinations are complete. Avoid live-vaccines unless reviewed with software programmer first. Assessment & Plan (02/18/2021 9:33 PM HOME HEALTH CARE CASE MANAGER): Long-term use of high-risk medication requiring regular monitoring. Labs ordered, no s/s of med tox or infection. Encouraged to work with PCP to make sure all recommended cancer screens and vaccinations are complete. Avoid live-vaccines unless reviewed with software programmer first. BMI 22.0-22.9, adult 02/11/2017 024 Tobacco use 08/02/2016 04/26/2023 Overview (08/06/2016): Tobacco abuse Upper respiratory tract infection 03/16/2013 04/26/2023 Overview (06/17/2016): URI (upper respiratory infection) Drug indicated 03/16/2013 04/26/2023 Overview (06/17/2016): LONG-TERM USE MEDS NEC Abdominal pain 07/25/2012 04/26/2023 Overview (06/17/2016): Abdominal pain Encounters Date Type Department Care Team Description 07/16/2024 8:50 AM CDT - 07/16/2024 11:59 PM CDT Hospital Encounter [address] [id number] Rheumatoid 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 factor (HCC) (Primary Dx) Discharge Disposition: Discharge to home or self care 05/21/2024 8:48 AM CDT - 05/21/2024 11:59 PM CDT Hospital Encounter [address] [address] Rheumatoid 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 factor (HCC) (Primary Dx) Discharge Disposition: Discharge to home or self care 05/14/2024 Orders Only [address] [address] Racheal Wallace RN 05/11/2024 3:00 PM HOME HEALTH CARE CASE MANAGER Office Visit [facility] Medical [facility] Cardiology [address] [place] [address] Heriberto Aleman MD S/P CABG (coronary artery bypass graft) (Primary Dx); Coronary artery disease of [place] artery of [place] heart with stable angina pectoris; Status post patent foramen ovale closure; Status post aortic valve repair from Last 3 Months Immunizations Immunization Administration Dates Next Due Flucelvax Influenza Quad 12/26/2016 Influenza, Quad, Adjuvantate d, Intramuscular 02/11/2021 Influenza, Quadrivalent, Nara l Culture-based MDCK, Preservative Free, Antibiotic Free, Intramuscular 12/27/2016 Influenza, Quadrivalent, Hig h Dose, Preservative Free, Intrr 01/06/2022,01/11/2020 Influenza, Quadrivalent, Spl it, Preservative Free, Intramuscular 02/08/2023,12/04/2015 Influenza, Trivalent, Adjuva nted, Intramuscular 11/20/2018 Influenza, Trivalent, High D ose, Split, Preservative Free, Intramuscular 02/13/2024,02/15/2018,12/01/2016 Influenza, Trivalent, IM (MDV) 12/21/2010 Influenza, Trivalent, Preser vative Free, Intramuscular 02/22/2015 Influenza, Trivalent, Split, Preservative Free, Intradermal 12/12/2014,12/12/2013,12/23/2011 Influenza, Unspecified 02/13/2021 Pneumococcal Conjugate PCV 13 09/03/2021 Pneumococcal Conjugate Pcv20 02/08/2023 Pneumococcal Polysaccharide PPV23 12/21/2010 Surgical History Surgery Date Site/Laterality Comments CORONARY ARTERY BYPASS GRAFT 03/14/2005 - 03/13/2006 Coronary Artery Bypass Graft CORONARY ARTERY BYPASS GRAFT 03/14/2005 - 03/13/2006 CABG COLONOSCOPY 03/14/2018 - 03/13/2019 Dr. Woodall COLONOSCOPY 10/21/2022 PORT PLACEMENT CHEST >5 YEARS 08/25/2021 N/A Medical History Medical History Date Comments Cardiovascular disease 2006 Coronary Artery Disease Hyperlipidemia hyperlipidemia Rheumatoid arthritis (HCC) Rheum atoid arthritis Hx Other Medical tobacco use Heart disease PFO (patent foramen ovale) 12/08/2021 Acute and subacute infective endocarditis 022 Rheumatoid arthritis of mult iple sites without rheumatoid factor (HCC) 07/17/2015 RHEUMATOID ARTHRITIS Family History Medical History Relation Name Comments Brain cancer Brother Cancer -brain t umor; Other Father Unknown; Cause of : Unknown Colon cancer Mother Cancer -colon; Diabetes Mother Diabetes mellit us; Cause of : Diabetes mellitus Other Sister 2 Alive and well; Relation Name Status Comments Brother Father (Age 67) Mother Sister 1 Alive Sister 2 Social History Tobacco Use Types Packs/Day Years Used Date Smoking Tobacco: Former Passive Smoke Exposure: Past Smokeless Tobacco: Never Tobacco Cessation:Counseling Given: Not Answered Comments:Smoking History Packs/day: 1 Packs Alcohol Use Standard Drinks/Week Comments [...] on file Legal Sex Male 3:24 PM HOME HEALTH CARE CASE MANAGER Gender Identity Not on file Sexual Orientation Not on file Obstetrics History Last Filed Vital Signs Vital Sign Reading Time Taken Comments Blood Pressure 110/80 07/16/2024 12:25 PM CDT Pulse 88 07/16/2024 12:25 PM CDT Temperature 36.3 C (97.4 F) 07/16/2024 12:25 PM CDT Respiratory Rate 18 07/16/2024 12:25 PM CDT Oxygen Saturation 100% 07/16/2024 12:25 PM CDT Inhaled Oxygen Concentration - - Weight 75.8 kg (167 lb) 07/16/2024 8:55 AM CDT Height 185.4 cm (6' 1 ) 05/11/2024 2:48 PM HOME HEALTH CARE CASE MANAGER Body Mass Index 22.03 05/11/2024 2:48 PM HOME HEALTH CARE CASE MANAGER Plan of Treatment Health Maintenance Due Date Last Done Comments DTaP/Tdap/Td Vaccine (1 - Tdap) 01/19/1963 Hepatitis B Screening 01/19/1970 Zoster Vaccine (1 of 2) 01/19/1971 Fall Risk Assessment 08/08/2024 08/09/2023, 02/08/2023, 10/21/2022, Additional history exists Well Visit 65+ 08/08/2024 08/09/2023, 08/04/2022 Depression Screening 02/12/2025 02/13/2024, 08/09/2023, 02/08/2023, Additional history exists Colon Cancer Screening-Colonoscopy 10/21/2032 10/21/2022, 10/21/2022 Hepatitis C Screening Completed 09/03/2021 Abdominal Aortic Aneurysm (A AA) Screen Completed 09/22/2021, 08/19/2021 Colon Cancer Screening-CT Colonography Discontinued 12/01/2022, 10/21/2022, 10/21/2022 Colon Cancer Screening-DNA Stool Discontinued 12/01/2022, 10/21/2022, 10/21/2022 Colon Cancer Screening-FIT Discontinued 12/01, 10/21/2022, 10/21/2022 Colon Cancer Screening-Sigmoidoscopy Discontinued 12/01/2022, 10/21/2022, 10/21/2022 Pneumococcal vaccine 65+ Completed 023, 09/03/2021, 12/21/2010 Prostate Cancer Screening-PSA Discontinued 08/09/2023, 07/01/2022 Influenza Vaccine Completed 02/13/2024, , 01/06/2022, Additional history exists Procedures Procedure Name Priority Date/Time Associated Diagnosis Comments URINALYSIS, MICROSCOPIC ONLY Routine 05/21/2024 9:29 AM CDT Rheumatoid 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 factor (HCC) URINALYSIS AND REFLEX TO MICROSCOPIC AND CULTURE Routine 05/21/2024 9:29 AM CDT Rheumatoid 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 factor (HCC) EGFR Routine 05/21/2024 9:18 AM CDT Rheumatoid 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 factor (HCC) DIFFERENTIAL AUTO Routine 05/21/2024 9:1 8 AM CDT Rheumatoid 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 factor (HCC) ERYTHROCYTE SEDIMENTATION RATE Routine 05/21/2024 9:18 AM CDT Rheumatoid 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 factor (HCC) CBC WITH AUTO DIFFERENTIAL Routine 05/21/2024 9:18 AM CDT Rheumatoid 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 factor (HCC) COMPREHENSIVE METABOLIC PANEL Routine 05/21/2024 9:18 AM CDT Rheumatoid 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 factor (HCC) PSA SCREEN Routine 08/09/2023 12:37 PM CDT Screening PSA (prostate specific antigen) CT VIRTUAL COLONOSCOPY SCREENING Schedule Routine, Read Routine (OP Routine) 12/01/2022 9:21 AM CDT Colon cancer screening [facility] COLONOSCOPY Routine 10/21/2022 ABDOMINAL AORTIC ANEURYSM SCREENING Schedule Routine, Read Routine (OP Routine) 09/22/2021 12:03 PM CDT Screening for abdominal aortic aneurysm HEPATITIS C ANTIBODY Routine 09/03/2021 11:06 AM CDT Need for hepatitis C screening test from Last 3 Months or Most Recently Relevant to Health Maintenance Results * (ABNORMAL) Urinalysis reflex to microscopic and culture Urine (05/21/2024 9:29 AM CDT) Color, ur Yellow Yellow Clarity, ur Clear Clear [facility] Specific gravity, ur 1.029 1.003 - 1.030 [facility] pH, urine 6.0 [facility] Comment: Interpretive Data U rine pH is affected by diet, medications, systemic acid-base disturbances, and renal tubular function. pH may affect urinary stone formation. For example, urine pH below 6.0 may help reduce the tendency for calcium phosphate stones and pH greater than 6.0 may reduce the tendency for uric acid stone formation. Source: [facility] Current Interpretive Data was last revised on 2017 Protein, ur ql 1+(A) Negative [facility] Glucose, ur ql Negative Negative [facility] Ketones, ur Negative Negative [facility] Bilirubin, ur Negative Negative [facility] Blood, ur Negative Negative [facility] Urobilinogen, ur 2.0(A) <2.0 mg/dL [facility] Nitrite, ur Negative Negative [facility] Leukocyte esterase, ur Negative Negative [facility] UA reflex comment Reflex to microscopic UA will be performed. [facility] Urine 05/21/2024 9:29 AM CDT 05/21/2024 9:39 AM CDT Narrative [facility] - 05/21/2024 9:48 AM CDT Nursing: release urinalysis for patient to have collected in outpatient lab. Needs collected every other visit. Óscar Gutierrez MD LAB MICROBIOLOGY - GENERAL ORD ERABLES Final Result [facility] [address] [facility] Department [place] [address] * (ABNORMAL) Urinalysis, microscopic only (05/21/2024 9:29 AM CDT) WBC, ur 0-5 0 - 5 /HPF RBC, ur 3-5(A) 0 - 2 /HPF [facility] Epithelial cells, squamous, ur 1-5 0 - 5 /HPF [facility] Mucous, ur Present(A) [facility] Hyaline casts, ur 11-20(A) 0 - 10 /LPF [facility] Culture Reflex Comment Reflex conditions for urine culture (WBC >10) not met. [facility] Urine 05/21/2024 9:29 AM CDT 05/21/2024 9:39 AM CDT Óscar Gutierrez MD LAB URINE ORDERABLES Final Res ult Performing Organization Address [facility] Co de Phone Number LUIS [address] [employer] [place] [address] * eGFR (05/21/2024 9:18 AM CDT) eGFR 67 >=60 mL/min/1. 73 m2 Comment: Interpretive Data Reference Interval Normal >/= 90 mL/min/1.73m2 Mildly decreased* 60 - 89 mL/min/1.73m2 Mildly to moderately decreased 45 - 59 mL/min/1.73m2 Moderately to severely decreased 30 - 44 mL/min/1.73m2 Severely decreased 15 - 29 mL/min/1.73m2 Kidney Failure < 15 mL/min/1.73m2 *Relative to young adult level Estimated glomerular filtration rate is determined by the 2020 CKD-EPI equation recommended by the National Kidney Foundation (A Unifying Approach to GFR Estimation: Recommendations of the NKF-ASK Task Force on Reassessing the Inclusion of Race in Diagnosing Kidney Disease, JASN 2020). The CKD-EPI equation should not be used for patients with unstable renal function and has not been validated in children and those over 70. Current interpretive data was last reviewed 2021. Blood 05/21/2024 9:18 AM CDT 05/21/2024 9:23 AM CDT Óscar Gutierrez MD LAB BLOOD ORDERABLES Final Res ult Performing Organization Address City/[facility]/ZIP Co de Phone Number LUIS [address] [place] [address] * (ABNORMAL) Differential, auto (05/21/2024 9:18 AM CDT) Pathologist [facility] Neutrophil abs 8.0(H) 1.5 - 6.5 K/cumm Imm gran abs 0.1 0.0 - 0.1 K/cumm [facility] Lymphocyte abs 4.0(H) 0.8 - 3.3 K/cumm [facility] Monocyte abs 1.0(H) 0.2 - 0.8 K/cumm [facility] Eosinophil abs 0.3 0.0 - 0.5 K/cumm [facility] Basophil abs 0.1 0.0 - 0.1 K/cumm [facility] Neutrophil pct 59.4 % [facility] Comment: Interpretive Data Percent cell count reference ranges are not reported, since discordance with absolute values may lead to misinterpretation of CBC data. Current Interpretive Data was last revised on 2017. Imm gran pct 0.4 % [facility] Comment: Interpretive Data Percent cell count reference ranges are not reported, since discordance with absolute values may lead to misinterpretation of CBC data. Current Interpretive Data was last revised on 2017. Lymphocyte pct 29.9 % [facility] Comment: Interpretive Data Percent cell count reference ranges are not reported, since discordance with absolute values may lead to misinterpretation of CBC data. Current Interpretive Data was last revised on 2017. Monocyte pct 7.4 % [facility] Comment: Interpretive Data Percent cell count reference ranges are not reported, since discordance with absolute values may lead to misinterpretation of CBC data. Current Interpretive Data was last revised on 2017. Eosinophil pct 2.3 % [facility] Comment: Interpretive Data Percent cell count reference ranges are not reported, since discordance with absolute values may lead to misinterpretation of CBC data. Current Interpretive Data was last revised on 2017. Basophil pct 0.6 % [facility] Comment: Interpretive Data Percent cell count reference ranges are not reported, since discordance with absolute values may lead to misinterpretation of CBC data. Current Interpretive Data was last revised on 2017. Blood 05/21/2024 9:18 AM CDT 05/21/2024 9:23 AM CDT us Óscar Gutierrez MD LAB BLOOD ORDERABLES Final Res ult [facility] [address] [facility] Department [place] [address] * (ABNORMAL) CBC with auto differential (05/21/2024 9:18 AM CDT) WBC 13.4(H) 3.8 - 9.9 K/cumm Hgb 13.2 13.0 - 17.5 g/dL [facility] Hct 41.4 38.9 - 50.3 % [facility] Plt 221 150 - 400 K/cumm [facility] MPV 10.0 9.1 - 12.3 fL [facility] RBC 4.41 4.30 - 5.80 M/cumm [facility] MCV 93.9 81.3 - 96.4 fL [facility] MCH 29.9 27.1 - 33.3 pg [facility] MCHC 31.9(L) 32.3 - 35.7 g/dL [facility] RDW CV 12.6 11.1 - 14.9 % [facility] RDW SD 43.7 35.7 - 48.1 fL [facility] NRBC abs 0.00 0.00 - 0.01 K/cumm [facility] Blood 05/21/2024 9:18 AM CDT 05/21/2024 9:23 AM CDT Marycruz [facility] - 05/21/2024 9:25 AM CDT Draw before every other infusion. Q16 weeks. us Óscar Gutierrez MD LAB BLOOD ORDERABLES Final Res ult Performing Organization Address City/[facility]/ZIP Co de Phone Number [address] [place], [place] [id number] * Erythrocyte sedimentation rate (05/21/2024 9:18 AM CDT) Pathologist [facility] Erythrocyte sedimentation rate 18 1 - 20 mm/hr Blood 05/21/2024 9:18 AM CDT 05/21/2024 9:23 AM CDT Marycruz [facility] - 05/21/2024 9:29 AM CDT Draw before every other infusion. Q16 weeks. us Óscar Gutierrez MD LAB BLOOD ORDERABLES Final Res ult [address] Department [place] [address] * Comprehensive metabolic panel (05/21/2024 9:18 AM CDT) Sodium 142 135 - 145 mmol/L Potassium, pl 4.4 3.3 - 4.9 mmol/L [facility] Comment:Hemolyzed; Potassium value may be falsely elevated by as much as 1.0 mmol/L. Suggest redraw and reanalysis. Chloride 106 97 - 110 mmol/L [facility] CO2 23 22 - 32 mmol/L [facility] Anion gap 13 2 - 15 mmol/L [facility] BUN 22 6 - 25 mg/dL [facility] Creatinine 1.16 0.80 - 1.30 mg/dL [facility] Glucose 92 70 - 199 mg/dL [facility] Comment: Interpretive Data Fasting glucose >/= 126 mg/dl is diagnostic for diabetes. Fasting is defined as no caloric intake for at least 8 hours. Fasting glucose between 100 mg/dl to 125 mg/dl is diagnostic of prediabetes. In a patient with classic symptoms of hyperglycemia or hyperglycemic crisis, a random glucose >/= 200 mg/dl is diagnostic for diabetes. In the absence of unequivocal hyperglycemia, results should be confirmed by repeat testing. The classification and Diagnosis of Diabetes Diabetes Care 2021; 46: [id number]. Current interpretive data was last revised 2022. Calcium 9.1 8.5 - 10.3 mg/dL [facility] Bilirubin, total 0.3 0.1 - 1.2 mg/dL [facility] Protein, pl 7.4 6.5 - 8.5 g/dL [facility] Albumin 4.3 3.5 - 5.0 g/dL [facility] Alk phos 87 40 - 130 Units/L [facility] ALT 24 7 - 55 Units/L [facility] AST See Comment 10 - 50 [facility] Comment:Credited; Hemolyzed Specimen Blood 05/21/2024 9:18 AM CDT 05/21/2024 9:23 AM CDT Narrative [facility] - 05/21/2024 9:50 AM CDT Draw before every other infusion. [id number]. Óscar Gutierrez MD LAB BLOOD ORDERABLES Final Res ult [facility] [address] [facility] Department [place] [address] * PSA screen (08/09/2023 12:37 PM CDT) PSA-Total 0.86 <=6.20 ng/mL Comment: Interpretive Data AGE SEX REFERENCE INTERVAL 0 minutes-150 years Female None 0 minutes-49 years Male None 50-59 years Male 0-3.90 60-69 years Male 0-5.40 70-79 years Male 0-6.20 80-150 years Male 0-6.20 The Sean PSA Total assay procedure was used. Results from different manufacturers or methods may not be comparable. Serial testing should be performed using the same method. Current interpretive data last revised 21. Blood 08/09/2023 12:3 7 PM CDT 08/09/2023 8:33 PM CDT David Parikh MD LAB BLOOD ORDERABLES Final Result Performing Organization Address [facility] Co de Phone Number LUIS [id number] [facility] Department [place] [address] * CT Colonoscopy Screening (12/01/2022 9:21 AM CDT) Anatomical Region Laterality Modality Body N/A Computed Tomogra phy 12/01/2022 12:0 8 PM CDT Impressions 12/01/2022 12:12 PM CDT Colon: C1: Normal colon or benign lesion, continue routine screening. Extracolonic Findings: E2: Clinically unimportant finding, no workup indicated. Dictated by: Eliane Brumfield M.D. The radiology attending physician has personally reviewed this study, and had reviewed and/or edited this written report and agrees with it. Electronically signed by: Ruslan Goody M.D. Narrative 12/01/2022 12:12 PM CDT EXAMINATION: CT colonography without intravenous contrast HISTORY: Incomplete colonoscopy, tortuous rectosigmoid, diverticulosis, incomplete evaluation of the cecum TECHNIQUE: Transaxial computed tomographic images through the abdomen and pelvis were obtained without intravenous contrast after insufflation of the colon with CO2 through a rectal catheter. Images were obtained in the supine and right lateral decubitus positions. COMPARISON: None FINDINGS: The following findings are reported according to the CT Colonography Reporting and Data System (C-RADS) from Radiology 2005; 236:3-9. Colonic preparation and distention: The sigmoid colon is underdistended, the remainder of the colon is adequately distended on both supine and right lateral decubitus views. Colonic findings: There is colonic diverticulosis No polyps greater than 5 mm are detected. Extracolonic findings: This CT examination is performed without intravenous contrast and with a low dose technique optimized for evaluation of the colon. Emphysema. Median sternotomy. Hiatal hernia. Renal cysts, including small hemorrhagic left renal cyst. Procedure Note Ruslan Godoy MD - 12/01/2022 EXAMINATION: CT colonography without intravenous contrast HISTORY: Incomplete colonoscopy, tortuous rectosigmoid, diverticulosis, incomplete evaluation of the cecum TECHNIQUE: Transaxial computed tomographic images through the abdomen and pelvis were obtained without intravenous contrast after insufflation of the colon with CO2 through a rectal catheter. Images were obtained in the supine and right lateral decubitus positions. COMPARISON: None FINDINGS: The following findings are reported according to the CT Colonography Reporting and Data System (C-RADS) from Radiology 2005; 236:3-9. Colonic preparation and distention: The sigmoid colon is underdistended, the remainder of the colon is adequately distended on both supine and right lateral decubitus views. Colonic findings: There is colonic diverticulosis No polyps greater than 5 mm are detected. Extracolonic findings: This CT examination is performed without intravenous contrast and with a low dose technique optimized for evaluation of the colon. Emphysema. Median sternotomy. Hiatal hernia. Renal cysts, including small hemorrhagic left renal cyst. IMPRESSION: Colon: C1: Normal colon or benign lesion, continue routine screening. Extracolonic Findings: E2: Clinically unimportant finding, no workup indicated. Dictated by: Eliane Brumfield M.D. The radiology attending physician has personally reviewed this study, and had reviewed and/or edited this written report and agrees with it. Electronically signed by: Ruslan Godoy M.D. Bette Santos MD IMG CT PROCEDURES Final Result * [facility] COLONOSCOPY (10/21/2022) Historical Provider HEALTH MAINTENANCE Final Result * US Abdominal Aortic Aneurysm Screening (09/22/2021 12:03 PM CDT) Anatomical Region Laterality Modality Abdomen Ultrasound 09/22/2021 12:1 9 PM CDT Narrative 09/22/2021 12:23 PM CDT EXAM DESCRIPTION: US ABDOMINAL AORTIC ANEURYSM SCREENING REASON FOR STUDY: screen aaa TECHNIQUE: Grayscale images acquired of the aorta and stored on PACS. Selected color Doppler and spectral images recorded. COMPARISON: None FINDINGS: There are atherosclerotic changes abdominal aorta. There is bilobed aneurysmal dilatation of the mid to distal abdominal aorta. The proximal aneurysmal component involving the mid abdominal aorta measures 3.0 cm in the AP dimension by 2.9 cm in the transverse dimension by 3.9 cm in length. The distal aneurysmal component involving the distal abdominal aorta measures 3.2 cm in the AP dimension by 2.8 cm in transverse dimension by 3.0 cm in length. AORTIC CALIBER MAXIMAL PROXIMAL: 2.3 x 1.9 cm. MID: 3.0 x 2.9 cm. DISTAL: 3.2 x 2.8 cm. ILIAC DIAMETER RIGHT: 1.1 cm. LEFT: 1.2 cm. OTHER: No other significant finding. IMPRESSION: 1. Atherosclerotic changes of the abdominal aorta with bilobed aneurysmal dilatation of the mid to distal abdominal aorta with the proximal component measuring up to 3.0 cm and the distal component measuring up to 3.2 cm. Given the bilobed appearance, further evaluation with CT is recommended as clinically indicated. REFERENCE: Please see below follow up recommendations for abdominal aortic aneurysm surveillance per Society for Vascular Surgery Guidelines: < 2.6 cm No follow up necessary 2.62.9 cm Recommended ultrasound follow up every 5 years 3.0-3.4 cm Recommended ultrasound follow up every 3 years 3.5-3.9 cm Recommended ultrasound follow up every 12 months 4.0-4.9 cm Recommended ultrasound follow up every 12 months, vascular surgery consult 5.0-5.4 cm Recommended ultrasound follow up every 6 months, vascular surgery consult >= 5.5 cm Referral to vascular surgeon Based upon Society for Vascular Surgery Guidelines: J Vasc Surgery 2008 50: [id number]; updated Mar 2017 J Vasc Surgery 67:277 THIS IS AN ELECTRONICALLY VERIFIED FINAL REPORT 09/22/2021 12:23 PM - Electronically signed by Kal Juarez D.O. PS: PS Report ID: [id number] Reading Location: [id number] Procedure Note Kal Juarez, DO - 09/22/2021 EXAM DESCRIPTION: US ABDOMINAL AORTIC ANEURYSM SCREENING REASON FOR STUDY: screen aaa TECHNIQUE: Grayscale images acquired of the aorta and stored on PACS.Selected color Doppler and spectral images recorded. COMPARISON: None FINDINGS: There are atherosclerotic changes abdominal aorta. There is bilobed aneurysmal dilatation of the mid to distal abdominal aorta. The proximal aneurysmal component involving the mid abdominal aorta measures 3.0 cm inthe AP dimension by 2.9 cm in the transverse dimension by 3.9 cm in length.The distal aneurysmal component involving the distal abdominal aorta measures3.2 cm in the AP dimension by 2.8 cm in transverse dimension by 3.0 cm inlength. AORTIC CALIBER MAXIMAL PROXIMAL: 2.3 x 1.9 cm. MID: 3.0 x 2.9 cm. DISTAL: 3.2 x 2.8 cm. ILIAC DIAMETER RIGHT: 1.1 cm. LEFT: 1.2 cm. OTHER: No other significant finding. IMPRESSION: 1. Atherosclerotic changes of the abdominal aorta with bilobedaneurysmal dilatation of the mid to distal abdominal aorta with the proximalcomponent measuring up to 3.0 cm and the distal component measuring up to 3.2 cm.Given the bilobed appearance, further evaluation with CT is recommended as clinically indicated. REFERENCE: Please see below follow up recommendations for abdominal aortic aneurysm surveillance per Society for Vascular Surgery Guidelines: < 2.6 cm No follow up necessary 2.62.9 cm Recommended ultrasound follow up every 5 years 3.0-3.4 cm Recommended ultrasound follow up every 3 years 3.5-3.9 cm Recommended ultrasound follow up every 12 months 4.0-4.9 cm Recommended ultrasound follow up every 12 months, vascularsurgery consult 5.0-5.4 cm Recommended ultrasound follow up every 6 months, vascularsurgery consult >= 5.5 cm Referral to vascular surgeon Based upon Society for Vascular Surgery Guidelines: J Vasc Surgery 2009Oct 50: [id number]; updated Mar 2017 J Vasc Surgery 67:277 THIS IS AN ELECTRONICALLY VERIFIED FINAL REPORT 09/22/2021 12:23 PM - Electronically signed by Kal Juarez D.O. PS: PS Report ID: [id number] Reading Location: [id number] David Parikh MD IMG US PROCEDURES Final Res ult * Hepatitis C antibody (09/03/2021 11:06 AM CDT) Hep C Ab Nonreactive Nonreactive [facility] Comment: Interpretive Data Nonreactive: Antibodies to HCV not detected. Does NOT exclude the possibility of recent exposure to HCV. Equivocal: Equivocal for HCV antibodies. Supplemental molecular testing will be automatically performed to determine infection status in accordance with current CDC screening recommendations. Reactive: Positive for HCV antibodies. This may represent current or past HCV infection. Supplemental molecular testing will be automatically performed to determine current infection status in accordance with current CDC screening recommendations. Interpretive data was last revised on 2019. Blood 09/03/2021 11:0 6 AM CDT 09/03/2021 2:31 PM CDT David Parikh MD LAB MICROBIOLOGY - GENERAL ORDERABLES Final Result [facility] [address] [address] Department [place] [address] from Last 3 Months or Most Recently Relevant to Health Maintenance Insurance [employer] MEDICARE [address] [place] [id number] MEDICARE [facility] MEDICARE [facility] Advance Directives For more information, please contact: [phone] * Full Code (Latest Code Status on File) Date Activated Date Inactivated Comments 10/21/2022 9:44 AM 10/21/2022 5:08 PM * Full Code Date Activated Date Inactivated Comments 10/21/2022 9:44 AM 10/21/2022 9:44 AM Care Teams Senior Java Programmer Analyst Relationship Specialty Start Date End Date David Parikh MD [address] [place] [address] PCP - General Family Medicine 09/03/21 Heriberto Aleman MD [address] [address] Consulting Physician Cardiology 09/03/21 Óscar Gutierrez MD [address] [address] Referring Physician Rheumatology 01/06/22 Laurita Martinez MD [address] [facility] [address] [place] [address] Referring Physician Nephrology 08/04/22
--- OUTSIDE RECORDS SUMMARY | 2024-07-18 09:09 | XMS_ITS | Encounter Summary ---
Author Organization [facility] Address [address] [place] [address] Care Team Providers Care Hr Manager Name Role Phone Jose D Stern MD Primary Care Provider [phone] Encounter Details Date Type Department Care Team (Late st Contact Info) Description 02/21/2006 Outpatient Historical [facility] Cardiovas and Thor Surg at [facility] [address] 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
--- OUTSIDE RECORDS SUMMARY | 2024-07-18 09:09 | XMS_ITS | Referral Summary ---
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 factor (HCC) (Primary Dx) Discharge Disposition: Discharge to home or self care 05/21/2024 8:48 AM CDT - 05/21/2024 11:59 PM CDT Hospital Encounter [address] [address] Rheumatoid 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 factor (HCC) (Primary Dx) Discharge Disposition: Discharge to home or self care 05/14/2024 Orders Only [address] [address] Racheal Wallace, RN 05/11/2024 3:00 PM QUALITY PROCESS AUDITOR Office Visit [facility] [address] [place] [address] Heriberto Aleman MD S/P CABG (coronary artery bypass graft) (Primary Dx); Coronary artery disease of [place] artery of [place] heart with stable angina pectoris; Status post patent foramen ovale closure; Status post aortic valve repair from Last 3 Months Allergies No known active allergies Medications aspirin [...] 04/26/2023 Assessment & Plan (04/26/2023 1:44 PM QUALITY PROCESS AUDITOR): Refer to plastic surgery. Given Dr. Wolf's name in [place]. Colon cancer screening 08/04/2022 Assessment & Plan [...] mplicated 08/28/2021 Presence of aortocoronary bypass graft Aortic valve vegetation 08/19/2021 Dyslipidemia 08/17/2021 Stroke 08/16/2021 Assessment & Plan (10/10/2021 8:00 PM CDT): Continuing current regimen, though I wonder if we should back the metoprolol a step (1/2 tab BID). Would be a good question to run by the mannequin mounter Imdur was refilled yesterday, hopefully will be there waiting at the pharmacy Coronary artery disease of [place] artery of [place] heart with stable angina pectoris 11/24/2016 S/P CABG (coronary artery bypass graft) 11/25/19 17 Rheumatoid arthritis of [facility] sites without rheumatoid factor 07/17/2015 Overview (06/17/2016): RHEUMATOID ARTHRITIS Assessment & Plan (05/21/2021 7:56 AM QUALITY PROCESS AUDITOR): Chronic, stable on remicade q 6 week infusions. Continue to monitor. Labs today. Assessment & Plan (02/19/2021 9:12 AM QUALITY PROCESS AUDITOR): Chronic, stable on remicade. Last infusion on [...] additional records from recent hospital stay at [facility] Keep appointment with [facility] neurologist (09/17) and [facility] cardiothoracic surgeon (09/09) BP is controlled Prevnar-13 [...] 24 Assessment & Plan (05/21/2021 10:19 AM QUALITY PROCESS AUDITOR): Referral form for [facility] [place] provided. Encounter for long-term (cur rent) use of high-risk medication 02/18/2021 04/26/2023 Assessment & Plan (05/21/2021 7:57 AM QUALITY PROCESS AUDITOR): Long-term use of high-risk medication requiring regular monitoring. Labs re-ordered as he has not had them drawn from his February 2021 visit. No s/s of med tox or infection. Encouraged to work with PCP to make sure all recommended cancer screens and vaccinations are complete. Avoid live-vaccines unless reviewed with pail tester first. Assessment & Plan (02/18/2021 9:33 PM QUALITY PROCESS AUDITOR): Long-term use of high-risk medication requiring regular monitoring. Labs ordered, no s/s of med tox or infection. Encouraged to work with PCP to make sure all recommended cancer screens and vaccinations are complete. Avoid live-vaccines unless reviewed with pail tester first. BMI 22.0-22.9, adult 02/11/2017 024 Tobacco use 08/02/2016 04/26/2023 Overview (08/06/2016): Tobacco abuse Upper respiratory tract infection 03/16/2013 04/26/2023 Overview (06/17/2016): URI (upper respiratory infection) Drug indicated 03/16/2013 04/26/2023 Overview (06/17/2016): LONG-TERM USE MEDS NEC Abdominal pain 07/25/2012 04/26/2023 Overview (06/17/2016): Abdominal pain Immunizations Immunization Administration Dates Next Due Flucelvax [...] Conjugate Pcv20 02/08/2023 Pneumococcal Polysaccharide PPV23 12/21/2010 Social History Tobacco Use Types Packs/Day Years [...] on file Legal Sex Male 3:24 PM QUALITY PROCESS AUDITOR Gender Identity Not on file Sexual Orientation Not on file Last Filed Vital Signs Vital Sign Reading [...] cm (6' 1 ) 05/11/2024 2:48 PM QUALITY PROCESS AUDITOR Body Mass Index 22.03 05/11/2024 2:48 PM QUALITY PROCESS AUDITOR Plan of Treatment Not on file Procedures Procedure Name Priority Date/Time Associated Diagnosis [...] Colon cancer screening HM COLONOSCOPY Routine 10/21/2022 US ABDOMINAL AORTIC ANEURYSM SCREENING Schedule Routine, Read [...] ur Yellow Yellow Clarity, ur Clear Clear [facility] Specific gravity, ur 1.029 1.003 - 1.030 [facility] pH, urine 6.0 [facility] Comment: Interpretive Data U rine pH is affected by diet, medications, systemic acid-base disturbances, and renal tubular function. pH may affect urinary stone formation. For example, urine pH below 6.0 may help reduce the tendency for calcium phosphate stones and pH greater than 6.0 may reduce the tendency for uric acid stone formation. Source: [facility] Current Interpretive Data was last revised on 2017 Protein, ur ql 1+(A) Negative [facility] Glucose, ur ql Negative Negative [facility] Ketones, ur Negative Negative [facility] Bilirubin, ur Negative Negative [facility] Blood, ur Negative Negative [facility] Urobilinogen, ur 2.0(A) <2.0 mg/dL [facility] Nitrite, ur Negative Negative [facility] Leukocyte esterase, ur Negative Negative [facility] UA reflex comment Reflex to microscopic UA will be performed. [facility] Urine 05/21/2024 9:29 AM CDT 05/21/2024 9:39 AM CDT Narrative [facility] - 05/21/2024 9:48 AM CDT Nursing: release urinalysis for patient to have collected in outpatient lab. Needs collected every other visit. Óscar Gutierrez MD LAB MICROBIOLOGY - GENERAL ORD ERABLES Final Result Performing Organization Address [facility] de Phone Number [address] [email or web address] [address] * (ABNORMAL) Urinalysis, microscopic only (05/21/2024 9:29 AM CDT) WBC, ur 0-5 0 - 5 /HPF RBC, ur 3-5(A) 0 - 2 /HPF [facility] Epithelial cells, squamous, ur 1-5 0 - 5 /HPF [facility] Mucous, ur Present(A) [facility] Hyaline casts, ur 11-20(A) 0 - 10 /LPF [facility] Culture Reflex Comment Reflex conditions for urine culture (WBC >10) not met. [facility] Urine 05/21/2024 9:29 AM CDT 05/21/2024 9:39 AM CDT Óscar Gutierrez MD LAB URINE ORDERABLES Final Res ult Performing Organization Address [facility] Co de Phone Number [address] [email or web address] [address] * eGFR (05/21/2024 9:18 AM CDT) Pathologist [facility] eGFR 67 >=60 mL/min/1. 73 m2 Comment: [...] MD LAB BLOOD ORDERABLES Final Res ult [facility] [address] [facility] Department [place] [address] * (ABNORMAL) Differential, auto (05/21/2024 9:18 AM CDT) Pathologist [facility] Neutrophil abs 8.0(H) 1.5 - 6.5 K/cumm Imm gran abs 0.1 0.0 - 0.1 K/cumm [facility] Lymphocyte abs 4.0(H) 0.8 - 3.3 K/cumm [facility] Monocyte abs 1.0(H) 0.2 - 0.8 K/cumm [facility] Eosinophil abs 0.3 0.0 - 0.5 K/cumm [facility] Basophil abs 0.1 0.0 - 0.1 K/cumm [facility] Neutrophil pct 59.4 % [facility] Comment: Interpretive Data Percent cell count reference ranges are not reported, since discordance with absolute values may lead to misinterpretation of CBC data. Current Interpretive Data was last revised on 2017. Imm gran pct 0.4 % [facility] Comment: Interpretive Data Percent cell count reference ranges are not reported, since discordance with absolute values may lead to misinterpretation of CBC data. Current Interpretive Data was last revised on 2017. Lymphocyte pct 29.9 % [facility] Comment: Interpretive Data Percent cell count reference ranges are not reported, since discordance with absolute values may lead to misinterpretation of CBC data. Current Interpretive Data was last revised on 2017. Monocyte pct 7.4 % [facility] Comment: Interpretive Data Percent cell count reference ranges are not reported, since discordance with absolute values may lead to misinterpretation of CBC data. Current Interpretive Data was last revised on 2017. Eosinophil pct 2.3 % [facility] Comment: Interpretive Data Percent cell count reference ranges are not reported, since discordance with absolute values may lead to misinterpretation of CBC data. Current Interpretive Data was last revised on 2017. Basophil pct 0.6 % [facility] Comment: Interpretive Data Percent cell count reference ranges are not reported, since discordance with absolute values may lead to misinterpretation of CBC data. Current Interpretive Data was last revised on 2017. Blood 05/21/2024 9:18 AM CDT 05/21/2024 9:23 AM CDT us Óscar Gutierrez MD LAB BLOOD ORDERABLES Final Res ult [facility] [address] [facility] Department [place] [address] * (ABNORMAL) CBC with auto differential (05/21/2024 9:18 AM CDT) WBC 13.4(H) 3.8 - 9.9 K/cumm Hgb 13.2 13.0 - 17.5 g/dL [facility] Hct 41.4 38.9 - 50.3 % [facility] Plt 221 150 - 400 K/cumm [facility] MPV 10.0 9.1 - 12.3 fL [facility] RBC 4.41 4.30 - 5.80 M/cumm [facility] MCV 93.9 81.3 - 96.4 fL [facility] MCH 29.9 27.1 - 33.3 pg [facility] MCHC 31.9(L) 32.3 - 35.7 g/dL [facility] RDW CV 12.6 11.1 - 14.9 % [facility] RDW SD 43.7 35.7 - 48.1 fL [facility] NRBC abs 0.00 0.00 - 0.01 K/cumm [facility] Blood 05/21/2024 9:18 AM CDT 05/21/2024 9:23 AM CDT Narrative [facility] - 05/21/2024 9:25 AM CDT Draw before every other infusion. Q16 weeks. Óscar Gutierrez MD LAB BLOOD ORDERABLES Final Res ult Performing Organization Address City/[facility] Co de Phone Number [address] [email or web address] [address] * Erythrocyte sedimentation rate (05/21/2024 9:18 AM CDT) Erythrocyte sedimentation rate 18 1 - 20 mm/hr Blood 05/21/2024 9:18 AM CDT 05/21/2024 9:23 AM CDT Marycruz [facility] - 05/21/2024 9:29 AM CDT Draw before every other infusion. Q16 weeks. Óscar Gutierrez MD LAB BLOOD ORDERABLES Final Res ult Performing Organization Address City/[facility]/ZIP Co de Phone Number [address] [employer] [place], [place] [id number] * Comprehensive metabolic panel (05/21/2024 9:18 AM CDT) Sodium 142 135 - 145 mmol/L Potassium, pl 4.4 3.3 - 4.9 mmol/L [facility] Comment:Hemolyzed; Potassium value may be falsely elevated by as much as 1.0 mmol/L. Suggest redraw and reanalysis. Chloride 106 97 - 110 mmol/L [facility] CO2 23 22 - 32 mmol/L [facility] Anion gap 13 2 - 15 mmol/L [facility] BUN 22 6 - 25 mg/dL [facility] Creatinine 1.16 0.80 - 1.30 mg/dL [facility] Glucose 92 70 - 199 mg/dL [facility] Comment: Interpretive Data Fasting glucose >/= [...] classification and Diagnosis of Diabetes Diabetes Care 202; 46: S19-S40. Current interpretive data was last revised 2022. Calcium 9.1 8.5 - 10.3 mg/dL [facility] Bilirubin, total 0.3 0.1 - 1.2 mg/dL [facility] Protein, pl 7.4 6.5 - 8.5 g/dL [facility] Albumin 4.3 3.5 - 5.0 g/dL [facility] Alk phos 87 40 - 130 Units/L [facility] ALT 24 7 - 55 Units/L [facility] AST See Comment 10 - 50 [facility] Comment:Credited; Hemolyzed Specimen Blood 05/21/2024 9:18 AM CDT 05/21/2024 9:23 AM CDT Narrative [facility] - 05/21/2024 9:50 AM CDT Draw before every other infusion. [email or web address] Óscar Gutierrez MD LAB BLOOD ORDERABLES Final Res ult [facility] [address] [facility] Department [place] [address] * PSA screen (08/09/2023 12:37 PM CDT) [...] 7 PM CDT 08/09/2023 8:33 PM CDT us David Parikh MD LAB BLOOD ORDERABLES Final Result [facility] [address] [facility] Department [place] [address] * CT Colonoscopy Screening (12/01/2022 9:21 AM [...] it. Electronically signed by: Ruslan Godoy M.D. Narrative 12/01/2022 12:12 PM CDT EXAMINATION: [...] by: Ruslan Godoy M.D. Bette Santos MD IM CT PROCEDURES Final Result * COLONOSCOPY (10/21/2022) Historical Provider HEALTH MAINTENANCE Final Result * Abdominal Aortic Aneurysm Screening (09/22/2021 12:03 PM [...] Electronically signed by Kal Juarez D.O. PS: YI Report ID: [id number] Reading Location: [id number] Procedure Note Kal Juarez, - 09/22/2021 EXAM DESCRIPTION: US ABDOMINAL AORTIC [...] Kal Juarez D.O. PS: PS Report ID: [id number] Reading Location: [id number] David Parikh MD IMG US PROCEDURES Final [...] LAB MICROBIOLOGY - GENERAL ORDERABLES Final Result Performing Organization Address City/State/[facility] [place] Phone Number [facility] [address] Department [place] [address] from Last 3 Months or Most Recently Relevant to Health Maintenance Insurance [facility] MEDICARE MEDICARE [facility] MEDICARE AARP Advance Directives For more information, please contact: [phone] * Full Code (Latest Code Status on File) Date Activated Date Inactivated Comments 10/21/2022 9:44 AM 10/21/2022 5:08 PM * Full Code Date Activated Date Inactivated Comments 10/21/2022 9:44 AM 10/21/2022 9:44 AM Care Teams Guest Services Attendant Relationship Specialty Start Date End Date David Parikh MD [address] [place] [address] PCP - General Family Medicine 09/03/21 Heriberto Aleman MD [address] [address] Consulting Physician Cardiology 09/03/21 Óscar Gutierrez MD [address] [address] Referring Physician Rheumatology 01/06/22 Laurita Martinez MD [address] [facility] [address] [place] [address] Referring Physician Nephrology 08/04/22
--- OUTSIDE RECORDS SUMMARY | 2024-07-18 09:09 | XMS_ITS | Continuity of Care Document ---
Author Organization [facility] Address [address] [place] [address] Phone Care Team Providers Care [employer] Manager Name Role Phone Juan Patel MD Unavailable Unavailable Procedures Procedure Date No Charge Initial Hospital Care Advance Directives Directive Yes / No Effective Date File Name No Information Encounters Encounter Description Practice Location Reason(s) For Visit Diagnoses Date Provider Providers Copied on Encounter [facility], [address], [id number], [phone] [facility] [place] No Information 1 Jorge Martinez. [address] [place] [address], [facility], . tel: [phone] Referring Provider: Nolberto Luo [place], [id number]. tel:[phone] Initial Hospital Care [facility], [address], [id number], tel:[phone] [facility] [place] Acute kidney failure, unspecifiedBladder- neck obstructionEssentia l (primary) hypertensionMaligna nt neoplasm of colon, unspecifiedObstruct kourtney and reflux uropathy, unspecified 1 Jorge Martinez. [address] [place] [address], [address] [place] [address]. tel: [phone] Referring Provider: Nolberto Luo [place], [place], [id number]. tel:[phone] Family History Family Member Type Diagnosis Age At Onset No Information Payers Payer name Insurance type Covered democrat ID Authoriza tion(s) Medicare [place] Primary MB [id number] Social History Type Description Quantity Date Captured Comments Sex Male Smoking Status No Information Chief Complaint And Reason For Visit No Information History Of Present Illness Encounter Date Complaint History Of Prese nt Illness No Information Instructions Date Instruction Additional Infor mation No Information Assessments Type Assessment Date No Information
--- OUTSIDE RECORDS SUMMARY | 2024-07-18 09:10 | XMS_ITS | Clinical Summary ---
Author Organization [facility] for; to (do) Address [address] [place] [address] Care Team Providers Care Filenet Developer Name Role Phone Unavailable Primary Care Provider Unavailabl e Source Comments [facility] for; to (do),non-owned Affiliates and Associated Physician Practices is amultiple site organization consisting of ambulatory clinics and hospital sitesin [place], [place], [place] and [place]. This disclosure is being madepursuant to the Care Everywhere program and may not contain all information available regarding this patient. Last updated 17.SpecifiedBy Allergies No known active allergies Medications * Be aware that medications may not be up to date on this document. Alwaysverify current medications with the patient. atorvastatin (LIPITOR) 40 MG tablet Take 1 (one) tablet by mouth at bedtime 60 tablet 2 2 Active Ascorbic Acid (Vitamin C) 100 MG Active vitamin D (D-Vi-Ly) 10 MCG (400 UNITS)/ML solution Active Multiple Vitamin (MULTIVITAMIN ADULT PO) Active acetaminophen (Tylenol) 325 MG tablet Take 2 (two) tablets by mouth every 6 hours while awake Maximum allowable Acetaminophen amount = 4 Grams (4000 mg) / 24 hours. 100 tablet 2 Active Additional Information Patient not taking.Reported on 03/31/2022 hydroxychloroq uine (Plaquenil) 200 MG tablet 2 Active predniSONE (Deltasone) 2.5 MG tablet 2 Active Active Problems Patient Care Coordination No te Formatting of this note migh t be different from the original. Need to review AKIL with Dr. Rios --> per report AV vegetation unchanged. Hx of CABG in 2005; need to discuss w/ Dr. Rios about CT coronary since vegetation on left coronary cusp. Also still need carotids and vein mapping. 10/20/21. 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 Labs re-ordered as he has not had them drawn from his February 2021 visit. No s/s of med tox or infection. Encouraged to work with PCP to make sure all recommended cancer screens and vaccinations are complete. Avoid live-vaccines unless reviewed with field service engineer first. Rheumatoid arthritis involvi ng multiple sites with positive rheumatoid factor 07/17/2015 Overview (08/19/2021): RHEUMATOID ARTHRITIS Last Assessment & Plan: Chronic, stable on remicade q 6 week infusions. Continue to monitor. Labs today. Social History Tobacco Use Types Packs/Day Years Used Date Smoking Tobacco: Former Cigarettes Smokeless Tobacco: Never Tobacco Cessation:Counseling Given: Not Answered Alcohol Use Standard Drinks/Week Comments Not Currently 0 (1 standard drink = 0.6 oz pur e alcohol) AUDIT-C Answer Date Recorded Q1: How often do you have a drink containing alcohol? Never 12/11/2021 Q2: How many drinks containi ng alcohol do you have on a typical day when you are drinking? Patient does not drink Q3: How often do you have si x or more drinks on one occasion? Never 12/11/2021 PHQ-2 Answer Date Recorded PHQ2 TOTAL SCORE 1 10/06/2021 Hunger Vital Sign Answer Date Recorded Within the past 12 months, y ou worried that your food would run out before you got the money to buy more. Never true 12/10/19 22 Within the past 12 months, t he food you bought just didn't last and you didn't have money to get more. 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 Gender Identity Not on file Sexual Orientation Not on file Last Filed Vital Signs Vital Sign Reading Time Taken Comments Blood Pressure 98/63 03/31/2022 11:00 AM DIRECTOR OF EDUCATION AND TRAINING Pulse 89 03/31/2022 11:00 AM DIRECTOR OF EDUCATION AND TRAINING Temperature 36.6 C (97.9 F) 03/31/2022 11:00 AM DIRECTOR OF EDUCATION AND TRAINING Respiratory Rate 18 12/14/2021 8:05 AM CDT Oxygen Saturation 96% 03/31/2022 11:00 AM DIRECTOR OF EDUCATION AND TRAINING Inhaled Oxygen Concentration 35% 12/08/2021 3 :00 PM CDT Weight 76.7 kg (169 lb 3.2 oz) 03/31/2022 11:00 AM DIRECTOR OF EDUCATION AND TRAINING Height 182.9 cm (6') 03/31/2022 11:00 AM DIRECTOR OF EDUCATION AND TRAINING Body Mass Index 22.95 03/31/2022 11:00 AM DIRECTOR OF EDUCATION AND TRAINING Plan of Treatment Health Maintenance Due Date Last Done Comments COLOGUARD (AGES 45-75) - COLON CA SCREENING 1952 COLON MONITORING 1952 COLONOSCOPY - COLON CA SCREENING 1952 CT COLONOGRAPHY - COLON CA SCREENING 1950 Colorectal Cancer Screening 1952 FIT - COLON CA SCREENING 1952 FLEX SIG - COLON CA SCREENING 1950 MEDICARE AWV 12 MONTHS 1952 DTAP/TDAP/TD VACCINES (1 - Tdap) 01/19/1971 PNEUMOCOCCAL VACCINE 50+ (1 of 1 - PCV) 01/19/2002 ZOSTER VACCINE (1 of 2) 01/19/2002 Respiratory Syncytial Virus (RSV) Vaccine Pt: or over 60 yrs (1 - Risk 60-74 years 1-dose series) 2012 COVID-19 VACCINE (1 - season) 2023 DEPRESSION SCREENING 03/14/2024 08/16/2021 INFLUENZA VACCINE (Season Ended) 2024 02/13/2021, 11/20/2018, 02/15/2018, Additional history exists HEPATITIS C SCREENING Completed 08/19/2021 AAA SCREENING Completed 09/22/2021 HEPATITIS B VACCINE Aged Out No longe r eligible based on patient's age to complete this topic HIB VACCINE Aged Out No longer eligi ble based on patient's age to complete this topic HPV VACCINE Aged Out No longer eligi ble based on patient's age to complete this topic MENINGOCOCCAL (Group B) VACCINE SHARED DECISION-MAKING Aged Out No longer eligible based on patient's age to complete this topic MENINGOCOCCAL GROUPS A/C/Y/W VACCINE Aged Out No longer eligible based on patient's age to complete this topic Procedures Procedure Name Priority Date/Time Associated Diagnosis Comments HEPATITIS C AB SCREEN RFLX NAAT QUANT STAT 08/19/2021 12:28 PM CDT from Last 3 Months or Most Recently Relevant to Health Maintenance Results * HEPATITIS C AB SCREEN RFLX NAAT QUANT (08/19/2021 12:28 PM CDT) Hepatitis C Antibody Non-react kourtney Non-reac tive 08/19/2021 1:34 PM CDT [facility] Comment:Hepatitis C Antibody screen indicates no serologic evidence of past or current infection with Hepatitis C Virus. Patients with unexplained liver disease who are immunocompromised or suspected of having acute Hepatitis C infection may benefit from Nucleic Acid Test (MANOLO) for Hepatitis C Viral RNA to confirm Hepatitis C status. Blood BLOOD SPECIMEN / Unknown Lab Venipuncture / Unknown 08/19/2021 12:28 PM CDT 08/19/2021 12:41 PM CDT Agustin Dennis MD LAB - CHEMISTRY ORDERABLES Final Result [facility] [address] [place] [address], [facility] [phone] from Last 3 Months or Most Recently Relevant to Health Maintenance Insurance MEDICARE [facility] [place] [address] [facility] Advance Directives * Full Code (Latest Code Status on File) Date Activated Date Inactivated Comments 12/08/2021 11:02 AM 12/14/2021 3:34 PM * Full Code Date Activated Date Inactivated Comments 11/26/2021 12:30 PM 11/27/2021 6:17 PM * Full Code Date Activated Date Inactivated Comments 11/26/2021 11:20 AM 11/26/2021 12:30 PM * Full Code Date Activated Date Inactivated Comments 08/16/2021 11:42 PM 08/27/2021 6:32 PM
--- OUTSIDE RECORDS SUMMARY | 2024-07-18 09:10 | XMS_ITS | Clinical Summary ---
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 Gender Identity Not on file Sexual Orientation Not on file Plan of Treatment Health Maintenance Due Date Last Done Comments DTAP/TDAP/TD VACCINES (1 - Tdap) 01/19/1971 COLORECTAL SCREENING 01/19/1997 Colorectal Cancer Screening 01/19/1997 FIT-DNA Q 3 years 01/19/1997 FIT/FOBT Q 1 year 01/19/1997 Flex Sig/CT Colonography Q 5 years 01/19/1997 PNEUMOCOCCAL VACCINE 50+ YEARS (1 of 1 - PCV) 01/20/20 ZOSTER VACCINE (1 of 2) 01/19/2002 INFLUENZA VACCINE (#1) 2023 RSV VACCINE (60+ or ) (1 - 1-dose 75+ series) 01/19/2027 Care Teams Plaster Molder Relationship Specialty Start Date End Date Jose D Stern MD [address] [place] [address] PCP - General 02/21/06
--- OUTSIDE RECORDS SUMMARY | 2024-07-18 09:10 | XMS_ITS | Encounter Summary ---
Author Organization [facility] Address 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) Social History Tobacco Use Types Packs/Day Years Used Date Smoking Tobacco: Never Assessed Sex and Gender Information Value Date Recorded Sex Assigned at Not on file Legal Sex Male 5:07 AM BASTER HAND Gender Identity Not on file Sexual Orientation Not on file documented as of this encounter Plan of Treatment Not on file documented as of this encounter Procedures Procedure Name Priority Date/Time Associated Diagnosis Comments POC GLUCOSE Routine 02/26/2006 11:45 AM [facility] POC GLUCOSE Routine 02/26/2006 7:26 AM [facility] CBC WITH DIFFERENTIAL Routine 02/26/2006 4:23 AM [facility] CBC WITH DIFFERENTIAL Routine 02/26/2006 4:23 AM [facility] HAND BASIC METABOLIC PANEL Routine 02/26/2006 4:23 AM [facility] POC GLUCOSE Routine 02/25/2006 8:32 PM [facility]ER HAND POC GLUCOSE Routine 02/25/2006 4:09 PM [facility] HAND POC GLUCOSE Routine 02/25/2006 11:24 AM [facility] HAND POC GLUCOSE Routine 02/25/2006 7:11 AM [facility] HAND BASIC METABOLIC PANEL Routine 02/25/2006 4:25 AM [facility] HAND POC GLUCOSE Routine 02/24/2006 9:11 PM [facility]ER HAND POC GLUCOSE Routine 02/24/2006 4:43 PM [facility] HAND POC GLUCOSE Routine 02/24/2006 11:54 AM [facility] HAND POC GLUCOSE Routine 02/24/2006 7:37 AM [facility] CBC WITH DIFFERENTIAL Routine 02/24/2006 6:25 AM B[facility] HAND CBC WITH DIFFERENTIAL Routine 02/24/2006 6:25 AM [facility] HAND BASIC METABOLIC PANEL Routine 02/24/2006 6:25 AM [facility] HAND POC GLUCOSE Routine 02/23/2006 9:04 PM [facility] HAND POC GLUCOSE Routine 02/23/2006 4:25 PM [facility] HAND POC GLUCOSE Routine 02/23/2006 12:33 PM [facility] HAND POTASSIUM LEVEL Routine 02/23/2006 11:33 AM [facility] HAND MAGNESIUM LEVEL Routine 02/23/2006 11:33 AM [facility] HAND POC, BLOOD GASES Routine 02/23/2006 7:13 AM [facility] HAND POC, BLOOD GASES Routine 02/23/2006 5:28 AM [facility] PT AND APTT Routine 02/23/2006 4:15 AM [facility] CBC WITH DIFFERENTIAL Routine 02/23/2006 4:15 AM [facility] CBC WITH DIFFERENTIAL Routine 02/23/2006 4:15 AM [facility] HAND MAGNESIUM LEVEL Routine 02/23/2006 4:15 AM [facility] HAND COMPREHENSIVE METABOLIC PANEL Routine 02/23/2006 4:15 AM [facility] POC GLUCOSE Routine 02/23/2006 1:41 AM B[facility] CVR ONLY, CKMB/CK Routine 02/23/2006 1:4 0 AM [facility] HAND POTASSIUM LEVEL Routine 02/23/2006 1:40 AM B[facility] HAND MAGNESIUM LEVEL Routine 02/23/2006 1:40 AM [facility] HAND POC, BLOOD GASES Routine 02/23/2006 1:20 AM [facility] HAND POC, BLOOD GASES Routine 02/22/2006 10:2 3 PM B[facility]ER HAND CK TOTAL, RELATIVE INDEX Routine 02/22/2006 10:23 PM B[facility] HAND CKMB W/REFLEX CK Routine 02/22/2006 10:2 3 PM B[facility] HAND TROPONIN (W/REFLEX CKMB/CK) Routine 02/22/2006 10:23 PM B[facility] HAND POTASSIUM LEVEL Routine 02/22/2006 10:23 PM BAST[facility] HAND MAGNESIUM LEVEL Routine 02/22/2006 10:23 PM [facility] HAND POC, BLOOD GASES Routine 02/22/2006 5:51 PM [facility] CVR ONLY, CKMB/CK Routine 02/22/2006 5:4 0 PM [facility] PT AND APTT Routine 02/22/2006 5:40 PM BAST[facility] HAND CBC WITH DIFFERENTIAL Routine 02/22/2006 5:40 PM BAST[facility] HAND CBC WITH DIFFERENTIAL Routine 02/22/2006 5:40 PM BASTER HAND MAGNESIUM LEVEL Routine 02/22/2006 5:40 PM BAST[facility] HAND BASIC METABOLIC PANEL Routine 02/22/2006 5:40 PM B[facility] HAND POC, BLOOD GASES Routine 02/22/2006 5:1 9 PM B[facility] HAND POC, BLOOD GASES Routine 02/22/2006 4:50 PM BASTER HAND POC, BLOOD GASES Routine 02/22/2006 4:29 PM BASTER HAND POC, BLOOD GASES Routine 02/22/2006 4:09 PM B[facility] HAND POC, BLOOD GASES Routine 02/22/2006 3:44 PM B[facility] HAND POC, BLOOD GASES Routine 02/22/2006 3:21 PM B[facility] HAND POC, BLOOD GASES Routine 02/22/2006 3:17 PM B[facility] HAND POC, BLOOD GASES Routine 02/22/2006 2:55 PM BAST[facility] HAND POC, BLOOD GASES Routine 02/22/2006 1:46 PM [facility] HAND URINALYSIS WITH REFLEX CULTURE Routine 02/21/2006 6:41 PM [facility] HAND URINALYSIS W/REFLEX MICROSCOPIC Routine 02/21/2006 6:41 PM B[facility] HAND CKMB W/REFLEX CK Routine 02/21/2006 5:25 PM BASTER HAND TROPONIN (W/REFLEX CKMB/CK) Routine 02/21/2006 5:25 PM [facility] PT AND APTT Routine 02/21/2006 5:25 PM B[facility] HAND CBC WITH DIFFERENTIAL Routine 02/21/2006 5:25 PM BAST[facility] HAND CBC WITH DIFFERENTIAL Routine 02/21/2006 5:25 PM B[facility] HAND LIPID PANEL Routine 02/21/2006 5:25 PM [facility] HAND COMPREHENSIVE METABOLIC PANEL Routine 02/21/2006 5:25 PM [facility] documented in this encounter Results * (ABNORMAL) POC GLUCOSE (02/26/2006 11:45 AM B[facility]ER HAND) GLUCOSE POC 108(H) 65 - 99 mg/dL INTERFACE SYSTEM Comment: 01/27/2006 Change in reference range to correspond to Main Lab reference range. 02/26/2006 11:4 5 AM B[facility] HAND us Daniela Abad MD POINT OF CARE TESTING Final Result Performing Organization Address [facility] de Phone Number INTERFACE SYSTEM Refer to clinic/hospital department * (ABNORMAL) POC GLUCOSE (02/26/2006 7:26 AM BASTER HAND) Pathologist [facility] GLUCOSE POC 114(H) 65 - 99 mg/dL INTERFACE SYSTEM Comment: 01/27/2006 Change in reference range to correspond to Main Lab reference range. 02/26/2006 7:26 AM B[facility] HAND us Daniela Abad MD POINT OF CARE TESTING Final Result Performing Organization Address [facility] de Phone Number INTERFACE SYSTEM Refer to clinic/hospital department * (ABNORMAL) CBC WITH DIFFERENTIAL (02/26/2006 4:23 AM BASTER HAND) NEUTROPHILS 59 45 - 70 % INTERFAC E SYSTEM LYMPHOCYTES 34 16 - 45 % INTERFAC E SYSTEM MONOCYTES 5 3 - 13 % INTERFACE SYSTEM EOSINOPHILS 2 0 - 7 % INTERFAC E SYSTEM BASOPHILS 0 0 - 2 % INTERFACE SYSTEM NEUTROPHIL ABSOLUTE 7.39(H) 1.90 - 7.00 K/uL INTERFACE SYSTEM LYMPHOCYTE ABSOLUTE 4.20 0.70 - 4.50 K/uL INTERFACE SYSTEM MONOCYTE ABSOLUTE 0.63 0.10 - 1.30 K/uL INTERFACE SYSTEM EOSINOPHIL ABSOLUTE 0.30 0.00 - 0.70 K/uL INTERFACE SYSTEM BASOPHILS ABSOLUTE 0.02 0.00 - 0.20 K/uL INTERFACE SYSTEM 02/26/2006 4:23 AM B[facility] HAND us Daniela Abad MD HEMATOLOGY ORDERABLES Final Result Performing Organization Address [facility] Phone Number INTERFACE SYSTEM Refer to clinic/hospital department * (ABNORMAL) CBC WITH DIFFERENTIAL (02/26/2006 4:23 AM BASTER HAND) WBC 12.5(H) 4.0 - 9.8 K/uL INTERFACE SYSTEM RBC 2.88(L) 4.50 - 5.40 M/uL INTERFACE SYSTEM HEMOGLOBIN 9.0(L) 13.6 - 16.5 g/dL INTERFACE SYSTEM HEMATOCRIT 27.7(L) 40.0 - 48.0 % INTERFACE SYSTEM MCV 96.2 82.0 - 99.0 fL INTERFACE SYSTEM MCH 31.3 27.2 - 32.6 pg INTERFACE SYSTEM MCHC 32.5 31.5 - 35.5 % INTERFACE SYSTEM RDW 13.7 11.5 - 14.5 % INTERFACE SYSTEM RDW-STDEV 47.3 37.1 - 48.7 fL INTERFACE SYSTEM PLATELETS 164 140 - 350 K/uL INTERFACE SYSTEM MPV 11.5 9.3 - 12.4 fL INTERFACE SYSTEM 02/26/2006 4:23 AM BASTER HAND us Daniela Abad MD HEMATOLOGY ORDERABLES Final Result Performing Organization Address [facility] Phone Number INTERFACE SYSTEM Refer to clinic/hospital department * BASIC METABOLIC PANEL (02/26/2006 4:23 AM BASTER HAND) GLUCOSE 88 65 - 99 mg/dL INTERFACE SYSTEM CREATININE 0.78 0.67 - 1.17 mg/dL INTERFACE SYSTEM Comment:Note: Effective 01/12 New Methodolgy and Reference Ranges CALCIUM 8.6 8.4 - 10.2 mg/dL INTERFACE SYSTEM BUN 15 6 - 20 mg/dL INTERFACE SYSTEM SODIUM 140 135 - 145 mmol/L INTERFACE SYSTEM POTASSIUM 4.5 3.5 - 4.9 mmol/L INTERFACE SYSTEM CHLORIDE 103 96 - 108 mmol/L INTERFACE SYSTEM CO2 30 22 - 30 mmol/L INTERFACE SYSTEM GFR, >60 >=60 mL/min/1.7 sq meter INTERFACE SYSTEM GFR >60 >=60 mL/min/1.7 sq meter INTERFACE SYSTEM Comment: Estimated GFR rate interpretative information for both Americans and non- Americans is available on the [facility] [facility] at: [email or web address] Select: Lab Policies and Procedures Select: Reference Ranges - GFR 02/26/2006 4:23 AM BASTER HAND us Daniela Abad MD CHEMISTRY ORDERABLES Final R esult Performing Organization Address [facility] de Phone Number INTERFACE SYSTEM Refer to clinic/hospital department * (ABNORMAL) POC GLUCOSE (02/25/2006 8:32 PM BASTER HAND) GLUCOSE POC 146(H) 65 - 99 mg/dL INTERFACE SYSTEM Comment: 01/27/2006 Change in reference range to correspond to Main Lab reference range. 02/25/2006 8:32 PM B[facility] HAND us Daniela Abad MD POINT OF CARE TESTING Final Result Performing Organization Address [facility] Phone Number INTERFACE SYSTEM Refer to clinic/hospital department * POC GLUCOSE (02/25/2006 4:09 PM BASTER HAND) GLUCOSE POC 83 65 - 99 mg/dL INTERFACE SYSTEM Comment: 01/27/2006 Change in reference range to correspond to Main Lab reference range. 02/25/2006 4:09 PM B[facility]ER HAND us Daniela Abad MD POINT OF CARE TESTING Final Result Performing Organization Address [facility] de Phone Number INTERFACE SYSTEM Refer to clinic/hospital department * (ABNORMAL) POC GLUCOSE (02/25/2006 11:24 AM BASTER HAND) GLUCOSE POC 131(H) 65 - 99 mg/dL INTERFACE SYSTEM Comment: 01/27/2006 Change in reference range to correspond to Main Lab reference range. 02/25/2006 11:2 4 AM B[facility] HAND us Daniela Abad MD POINT OF CARE TESTING Final Result Performing Organization Address [facility] Phone Number INTERFACE SYSTEM Refer to clinic/hospital department * (ABNORMAL) POC GLUCOSE (02/25/2006 7:11 AM B[facility]ER HAND) GLUCOSE POC 123(H) 65 - 99 mg/dL INTERFACE SYSTEM Comment: 01/27/2006 Change in reference range to correspond to Main Lab reference range. 02/25/2006 7:11 AM BASTER HAND us Daniela Abad MD POINT OF CARE TESTING Final Result Performing Organization Address [facility] Phone Number INTERFACE SYSTEM Refer to clinic/hospital department * (ABNORMAL) BASIC METABOLIC PANEL (02/25/2006 4:25 AM BASTER HAND) GLUCOSE 103(H) 65 - 99 mg/dL INTERFACE SYSTEM CREATININE 0.67 0.67 - 1.17 mg/dL INTERFACE SYSTEM Comment:Note: Effective 01/12 New Methodology and Reference Ranges CALCIUM 8.0(L) 8.4 - 10.2 mg/dL INTERFACE SYSTEM BUN 17 6 - 20 mg/dL INTERFACE SYSTEM SODIUM 138 135 - 145 mmol/L INTERFACE SYSTEM POTASSIUM 3.9 3.5 - 4.9 mmol/L INTERFACE SYSTEM CHLORIDE 103 96 - 108 mmol/L INTERFACE SYSTEM CO2 29 22 - 30 mmol/L INTERFACE SYSTEM GFR, >60 >=60 mL/min/1. 7 sq meter INTERFACE SYSTEM GFR >60 >=60 mL/min/1. 7 sq meter INTERFACE SYSTEM Comment: Estimated GFR rate interpretative information for both Americans and non- Americans is available on the [facility] at: [email or web address] Select: Lab Policies and Procedures Select: Reference Ranges - GFR 02/25/2006 4:25 AM BASTER HAND Van WANG CHEMISTRY ORDERABLES Final Resul t Performing Organization Address [facility] de Phone Number INTERFACE SYSTEM Refer to clinic/hospital department * (ABNORMAL) POC GLUCOSE (02/24/2006 9:11 PM BASTER HAND) GLUCOSE POC 174(H) 65 - 99 mg/dL INTERFACE SYSTEM Comment: 01/27/2006 Change in reference range to correspond to Main Lab reference range. 02/24/2006 9:11 PM B[facility] HAND us Daniela Abad MD POINT OF CARE TESTING Final Result Performing Organization Address [facility] Phone Number INTERFACE SYSTEM Refer to clinic/hospital department * (ABNORMAL) POC GLUCOSE (02/24/2006 4:43 PM BASTER HAND) GLUCOSE POC 128(H) 65 - 99 mg/dL INTERFACE SYSTEM Comment: 01/27/2006 Change in reference range to correspond to Main Lab reference range. 02/24/2006 4:43 PM BASTER HAND us Daniela Abad MD POINT OF CARE TESTING Final Result Performing Organization Address [facility] Phone Number INTERFACE SYSTEM Refer to clinic/hospital department * (ABNORMAL) POC GLUCOSE (02/24/2006 11:54 AM B[facility]ER HAND) GLUCOSE POC 126(H) 65 - 99 mg/dL INTERFACE SYSTEM Comment: 01/27/2006 Change in reference range to correspond to Main Lab reference range. 02/24/2006 11:5 4 AM BASTER HAND us Daniela Abad MD POINT OF CARE TESTING Final Result Performing Organization Address [facility] Phone Number INTERFACE SYSTEM Refer to clinic/hospital department * (ABNORMAL) POC GLUCOSE (02/24/2006 7:37 AM BASTER HAND) COMMENT, GLU POC Notified RN INTERFACE SYSTEM GLUCOSE POC 135(H) 65 - 99 mg/dL INTERFACE SYSTEM Comment: 01/27/2006 Change in reference range to correspond to Main Lab reference range. 02/24/2006 7:37 AM BASTER HAND us Daniela Abad MD POINT OF CARE TESTING Final Result Performing Organization Address [facility] de Phone Number INTERFACE SYSTEM Refer to clinic/hospital department * (ABNORMAL) CBC WITH DIFFERENTIAL (02/24/2006 6:25 AM B[facility]ER HAND) NEUTROPHILS 71(H) 45 - 70 % INTERFAC E SYSTEM LYMPHOCYTES 20 16 - 45 % INTERFAC E SYSTEM MONOCYTES 9 3 - 13 % INTERFACE SYSTEM EOSINOPHILS 1 0 - 7 % INTERFAC E SYSTEM BASOPHILS 0 0 - 2 % INTERFACE SYSTEM NEUTROPHIL ABSOLUTE 10.76(H) 1.90 - 7.00 K/uL INTERFACE SYSTEM LYMPHOCYTE ABSOLUTE 2.96 0.70 - 4.50 K/uL INTERFACE SYSTEM MONOCYTE ABSOLUTE 1.34(H) 0.10 - 1.30 K/uL INTERFACE SYSTEM EOSINOPHIL ABSOLUTE 0.08 0.00 - 0.70 K/uL INTERFACE SYSTEM BASOPHILS ABSOLUTE 0.02 0.00 - 0.20 K/uL INTERFACE SYSTEM 02/24/2006 6:25 AM BASTER HAND Daniela Abad MD HEMATOLOGY ORDERABLES Final Result Performing Organization Address [facility] Phone Number INTERFACE SYSTEM Refer to clinic/hospital department * (ABNORMAL) CBC WITH DIFFERENTIAL (02/24/2006 6:25 AM BASTER HAND) WBC 15.2(H) 4.0 - 9.8 K/uL INTERFACE SYSTEM RBC 3.14(L) 4.50 - 5.40 M/uL INTERFACE SYSTEM HEMOGLOBIN 9.9(L) 13.6 - 16.5 g/dL INTERFACE SYSTEM HEMATOCRIT 30.3(L) 40.0 - 48.0 % INTERFACE SYSTEM MCV 96.5 82.0 - 99.0 fL INTERFACE SYSTEM MCH 31.5 27.2 - 32.6 pg INTERFACE SYSTEM MCHC 32.7 31.5 - 35.5 % INTERFACE SYSTEM RDW 13.9 11.5 - 14.5 % INTERFACE SYSTEM RDW-STDEV 48.2 37.1 - 48.7 fL INTERFACE SYSTEM PLATELETS 134(L) 140 - 350 K/uL INTERFACE SYSTEM MPV 11.2 9.3 - 12.4 fL INTERFACE SYSTEM 02/24/2006 6:25 AM BASTER HAND us Daniela Abad MD HEMATOLOGY ORDERABLES Final Result Performing Organization Address [facility] Phone Number INTERFACE SYSTEM Refer to clinic/hospital department * (ABNORMAL) BASIC METABOLIC PANEL (02/24/2006 6:25 AM BASTER HAND) GLUCOSE 116(H) 65 - 99 mg/dL INTERFACE SYSTEM CREATININE 0.70 0.67 - 1.17 mg/dL INTERFACE SYSTEM Comment:Note: Effective 01/12 New Methodology and Reference Ranges BUN 16 6 - 20 mg/dL INTERFACE SYSTEM SODIUM 136 135 - 145 mmol/L INTERFACE SYSTEM POTASSIUM 3.9 3.5 - 4.9 mmol/L INTERFACE SYSTEM CHLORIDE 103 96 - 108 mmol/L INTERFACE SYSTEM CO2 30 22 - 30 mmol/L INTERFACE SYSTEM GFR, >60 >=60 mL/min/1. 7 sq meter INTERFACE SYSTEM GFR >60 >=60 mL/min/1. 7 sq meter INTERFACE SYSTEM Comment: Estimated GFR rate interpretative information for both Americans and non- Americans is available on the [facility] at: [email or web address] Select: Lab Policies and Procedures Select: Reference Ranges - GFR CALCIUM 7.9(L) 8.4 - 10.2 mg/dL INTERFACE SYSTEM 02/24/2006 6:25 AM BASTER HAND us Daniela Abad MD CHEMISTRY ORDERABLES Final R esult Performing Organization Address [facility] Phone Number INTERFACE SYSTEM Refer to clinic/hospital department * (ABNORMAL) POC GLUCOSE (02/23/2006 9:04 PM BASTER HAND) COMMENT, GLU POC Notified RN INTERFACE SYSTEM GLUCOSE POC 137(H) 65 - 99 mg/dL INTERFACE SYSTEM Comment: 01/27/2006 Change in reference range to correspond to Main Lab reference range. 02/23/2006 9:04 PM BASTER HAND us Daniela Abad MD POINT OF CARE TESTING Final Result Performing Organization Address [facility] Phone Number INTERFACE SYSTEM Refer to clinic/hospital department * (ABNORMAL) POC GLUCOSE (02/23/2006 4:25 PM BASTER HAND) COMMENT, GLU POC Notified RN INTERFACE SYSTEM GLUCOSE POC 148(H) 65 - 99 mg/dL INTERFACE SYSTEM Comment: 01/27/2006 Change in reference range to correspond to Main Lab reference range. 02/23/2006 4:25 PM BASTER HAND us Daniela Abad MD POINT OF CARE TESTING Final Result Performing Organization Address [facility] Phone Number INTERFACE SYSTEM Refer to clinic/hospital department * (ABNORMAL) POC GLUCOSE (02/23/2006 12:33 PM BASTER HAND) COMMENT, GLU POC Notified RN INTERFACE SYSTEM GLUCOSE POC 155(H) 65 - 99 mg/dL INTERFACE SYSTEM Comment: 01/27/2006 Change in reference range to correspond to Main Lab reference range. 02/23/2006 12:3 3 PM BASTER HAND Result Mojgan Abad MD POINT OF CARE TESTING Final Result Performing Organization Address [facility] INTERFACE SYSTEM Refer to clinic/hospital department * POTASSIUM LEVEL (02/23/2006 11:33 AM BASTER HAND) POTASSIUM 4.2 3.5 - 4.9 mmol/L INTERFACE SYSTEM 02/23/2006 11:3 3 AM BASTER HAND us Daniela Abad MD CHEMISTRY ORDERABLES Final R esult Performing Organization Address [facility] Phone Number INTERFACE SYSTEM Refer to clinic/hospital department * (ABNORMAL) MAGNESIUM LEVEL (02/23/2006 11:33 AM BASTER HAND) MAGNESIUM 2.6(H) 1.5 - 2.5 mg/dL INTERFACE SYSTEM 02/23/2006 11:3 3 AM BASTER HAND us Daniela Abad MD CHEMISTRY ORDERABLES Final R esult Performing Organization Address [facility] de Phone Number INTERFACE SYSTEM Refer to clinic/hospital department * (ABNORMAL) POC RT, BLOOD GASES (02/23/2006 7:13 AM BASTER HAND) PH ARTERIAL 7.37 7.35 - 7.45 INTERFACE SYSTEM PCO2 ARTERIAL 48 35 - 48 mm Hg INTERFACE SYSTEM PO2 ARTERIAL 71(L) 83 - 108 mm Hg INTERFACE SYSTEM O2 SAT EST ABG POC 94(L) 95 - 99 % INTERFACE SYSTEM PATIENT'S TEMPERATURE 37.0 Degree C INTERFACE SYSTEM BASE EXCESS ABG 1.9 -2.0 - 3.0 mmol/L INTERFACE SYSTEM HCO3 ARTERIAL 28(H) 22 - 26 mmol/L INTERFACE SYSTEM SODIUM POC 137 135 - 145 mmol/L INTERFACE SYSTEM POTASSIUM POC 4.2 3.5 - 4.9 mmol/L INTERFACE SYSTEM CALICUM IONIZED, WHOLE BLOOD 4.05(L) 4.76 - 5.16 mg/dL INTERFACE SYSTEM HEMATOCRIT POC 32.0(L) 40.0 - 48.0 % INTERFACE SYSTEM FIO2 40 INTERFACE SYSTEM OXYGEN MODE SIMV/PSV8 INTERFAC E SYSTEM PEEP POC 5 INTERFACE SYSTEM COMMENT, GASES POC AWARE INTERFACE SYSTEM 02/23/2006 7:13 AM BASTER HAND Daniela Abad MD CHEMISTRY ORDERABLES Final R esult Performing Organization Address [facility] Phone Number INTERFACE SYSTEM Refer to clinic/hospital department * (ABNORMAL) POC RT, BLOOD GASES (02/23/2006 5:28 AM BASTER HAND) PH ARTERIAL 7.41 7.35 - 7.45 INTERFACE SYSTEM PCO2 ARTERIAL 45 35 - 48 mm Hg INTERFACE SYSTEM PO2 ARTERIAL 81(L) 83 - 108 mm Hg INTERFACE SYSTEM O2 SAT EST ABG POC 96 95 - 99 % INTERFACE SYSTEM PATIENT'S TEMPERATURE 37.0 Degree C INTERFACE SYSTEM BASE EXCESS ABG 3.4(H) -2.0 - 3.0 mmol/L INTERFACE SYSTEM HCO3 ARTERIAL 28(H) 22 - 26 mmol/L INTERFACE SYSTEM SODIUM POC 137 135 - 145 mmol/L INTERFACE SYSTEM POTASSIUM POC 3.9 3.5 - 4.9 mmol/L INTERFACE SYSTEM CALICUM IONIZED, WHOLE BLOOD 4.05(L) 4.76 - 5.16 mg/dL INTERFACE SYSTEM HEMATOCRIT POC 32.0(L) 40.0 - 48.0 % INTERFACE SYSTEM FIO2 50 INTERFACE SYSTEM OXYGEN MODE SIMV/PSV8 INTERFAC E SYSTEM PEEP POC 8 INTERFACE SYSTEM COMMENT, GASES POC MD AWARE INTERFACE SYSTEM 02/23/2006 5:28 AM BASTER HAND Daniela Abad MD CHEMISTRY ORDERABLES Final R esult Performing Organization Address [facility] Phone Number INTERFACE SYSTEM Refer to clinic/hospital department * MAGNESIUM LEVEL (02/23/2006 4:15 AM BASTER HAND) MAGNESIUM 1.9 1.5 - 2.5 mg/dL INTERFACE SYSTEM 02/23/2006 4:15 AM BASTER HAND Priscilla Alva MD CHEMISTRY ORDERABLES Final Result Performing Organization Address [facility] INTERFACE SYSTEM Refer to clinic/hospital department * (ABNORMAL) CBC WITH DIFFERENTIAL (02/23/2006 4:15 AM BASTER HAND) NEUTROPHIL ABSOLUTE 16.54(H) 1.90 - 7.00 K/uL INTERFACE SYSTEM LYMPHOCYTE ABSOLUTE 0.88 0.70 - 4.50 K/uL INTERFACE SYSTEM MONOCYTE ABSOLUTE 0.18 0.10 - 1.30 K/uL INTERFACE SYSTEM EOSINOPHIL ABSOLUTE 0.00 0.00 - 0.70 K/uL INTERFACE SYSTEM BASOPHILS ABSOLUTE 0.00 0.00 - 0.20 K/uL INTERFACE SYSTEM NEUTROPHILS, SEG 93(H) 45 - 70 % INTERFACE SYSTEM BANDS 1 0 - 5 % INTERFACE SYSTEM LYMPHOCYTES 5(L) 16 - 45 % INTERFAC E SYSTEM MONOCYTES 1(L) 3 - 13 % INTERFACE SYSTEM EOSINOPHILS 0 0 - 7 % INTERFAC E SYSTEM BASOPHILS 0 0 - 2 % INTERFACE SYSTEM PLATELET EST. Consistent w/ count Normal INTERFACE SYSTEM RBC MORPHOLOGY Normal Normal INTER FACE SYSTEM 02/23/2006 4:15 AM BASTER HAND Priscilla Alva MD HEMATOLOGY ORDERABLES Matilde l Result Performing Organization Address [facility] Phone Number INTERFACE SYSTEM Refer to clinic/hospital department * (ABNORMAL) CBC WITH DIFFERENTIAL (02/23/2006 4:15 AM BASTER HAND) WBC 17.6(H) 4.0 - 9.8 K/uL INTERFACE SYSTEM RBC 3.48(L) 4.50 - 5.40 M/uL INTERFACE SYSTEM HEMOGLOBIN 11.0(L) 13.6 - 16.5 g/dL INTERFACE SYSTEM HEMATOCRIT 32.7(L) 40.0 - 48.0 % INTERFACE SYSTEM MCV 94.0 82.0 - 99.0 fL INTERFACE SYSTEM MCH 31.6 27.2 - 32.6 pg INTERFACE SYSTEM MCHC 33.6 31.5 - 35.5 % INTERFACE SYSTEM RDW 13.6 11.5 - 14.5 % INTERFACE SYSTEM RDW-STDEV 46.6 37.1 - 48.7 fL INTERFACE SYSTEM PLATELETS 134(L) 140 - 350 K/uL INTERFACE SYSTEM MPV 10.9 9.3 - 12.4 fL INTERFACE SYSTEM 02/23/2006 4:15 AM BASTER HAND Priscilla Alva MD HEMATOLOGY ORDERABLES Matilde mendenhall Result INTERFACE SYSTEM Refer to clinic/hospital department * (ABNORMAL) PT AND APTT (02/23/2006 4:15 AM BASTER HAND) PROTIME 16.1(H) 12.7 - 15.1 Seconds INTERFACE SYSTEM INR 1.3(H) 0.9 - 1.1 INTERFACE SYSTEM Comment: INR Therapeutic Range: Adult: 2.0 - 3.0 for pulmonary embolism or prophylaxis against venous thrombosis or systemic embolization. 2.0 - 3.0 for patients with tissue heart valves. 2.5 - 3.5 for patients with mechanical heart valves or post ID. Pediatric (12 years and under): 1.5 - 3.0 Although the target range in children is not well established , INR values of 1.5 - 3.0 are recommended for most patients. Higher values have been used in children with prosthetic cardiac valves and hereditary clotting disorders. (<3 days) therapeutic ranges have not been established. PTT 35.0 24.4 - 36.4 Seconds INTERFACE SYSTEM Comment: PTT Therapeutic Range: Heparin Level PTT (seconds) <0.10 units/mL <53 0.10 - 0.30 units/mL 53 - 67 0.30 - 0.70 units/mL* 67 - 95* 0.70 - 1.00 units/mL 95 - 116 *corresponds to therapeutic range for unfractionated heparin 02/23/2006 4:15 AM BASTER HAND us Priscilla Alva MD HEMATOLOGY ORDERABLES Matilde mendenhall Result INTERFACE SYSTEM Refer to clinic/hospital department * (ABNORMAL) COMPREHENSIVE METABOLIC PANEL (02/23/2006 4:15 AM BASTER HAND) GLUCOSE 133(H) 65 - 99 mg/dL INTERFACE SYSTEM CREATININE 0.78 0.67 - 1.17 mg/dL INTERFACE SYSTEM Comment:Note: Effective 01/12 New Methodology and Reference Ranges CALCIUM 6.9(L) 8.4 - 10.2 mg/dL INTERFACE SYSTEM ALKALINE PHOSPHATASE 39(L) 40 - 129 U/L INTERFACE SYSTEM AST 33 12 - 38 U/L INTERFACE SYSTEM ALT 35 0 - 41 U/L INTERFACE SYSTEM TOTAL PROTEIN 4.6(L) 6.3 - 8.6 g/dL INTERFACE SYSTEM ALBUMIN 2.7(L) 3.4 - 4.8 g/dL INTERFACE SYSTEM BILIRUBIN TOTAL 0.3 0.2 - 1.0 mg/dL INTERFACE SYSTEM BUN 16 6 - 20 mg/dL INTERFACE SYSTEM SODIUM 141 135 - 145 mmol/L INTERFACE SYSTEM POTASSIUM 4.2 3.5 - 4.9 mmol/L INTERFACE SYSTEM CHLORIDE 108 96 - 108 mmol/L INTERFACE SYSTEM CO2 28 22 - 30 mmol/L INTERFACE SYSTEM GFR, >60 >=60 mL/min/1. 7 sq meter INTERFACE SYSTEM GFR >60 >=60 mL/min/1. 7 sq meter INTERFACE SYSTEM Comment: Estimated GFR rate interpretative information for both Americans and non- Americans is available on the [facility] [place] at: [email or web address] Select: Lab Policies and Procedures Select: Reference Ranges - GFR 02/23/2006 4:15 AM BASTER HAND Priscilla Alva MD CHEMISTRY ORDERABLES Final Result Performing Organization Address [facility] Phone Number INTERFACE SYSTEM Refer to clinic/hospital department * (ABNORMAL) POC GLUCOSE (02/23/2006 1:41 AM B[facility]ER HAND) GLUCOSE POC 136(H) 65 - 99 mg/dL INTERFACE SYSTEM Comment: 01/27/2006 Change in reference range to correspond to Main Lab reference range. 02/23/2006 1:41 AM [facility] Daniela Abad MD POINT OF CARE TESTING Final Result Performing Organization Address [facility] Phone Number INTERFACE SYSTEM Refer to clinic/hospital department * MAGNESIUM LEVEL (02/23/2006 1:40 AM BASTER HAND) Pathologist [facility] MAGNESIUM 2.0 1.5 - 2.5 mg/dL INTERFACE SYSTEM 02/23/2006 1:40 AM [facility] Priscilla Alva MD CHEMISTRY ORDERABLES Final Result Performing Organization Address [facility] Phone Number INTERFACE SYSTEM Refer to clinic/hospital department * (ABNORMAL) POTASSIUM LEVEL (02/23/2006 1:40 AM B[facility]ER HAND) Pathologist [facility] POTASSIUM 5.0(H) 3.5 - 4.9 mmol/L INTERFACE SYSTEM Comment:No significant hemol ysis 02/23/2006 1:40 AM [facility] Priscilla Alva MD CHEMISTRY ORDERABLES Final Result Performing Organization Address [facility] Phone Number INTERFACE SYSTEM Refer to clinic/hospital department * (ABNORMAL) CVR ONLY, CKMB/CK (02/23/2006 1:40 AM B[facility]ER HAND) CKMB 19.2(AA) <=6.7 ng/mL INTERFACE SYSTEM Comment:Persistent abnormal result CKMB INTERP See Below INTERFAC E SYSTEM Comment:Elevated CKMB,Consis tent with Myocardial Injury CK 444(H) 10 - 170 U/L INTERFACE SYSTEM CARDIAC RELATIVE INDEX 4.3(H) <=4.0 INTERFACE SYSTEM 02/23/2006 1:40 AM [facility] HAND us Priscilla Alva MD CHEMISTRY ORDERABLES Final Result Performing Organization Address [facility] Phone Number INTERFACE SYSTEM Refer to clinic/hospital department * (ABNORMAL) POC RT, BLOOD GASES (02/23/2006 1:20 AM [facility] HAND) PH ARTERIAL 7.27(L) 7.35 - 7.45 INTERFACE SYSTEM PCO2 ARTERIAL 47 35 - 48 mm Hg INTERFACE SYSTEM PO2 ARTERIAL 87 83 - 108 mm Hg INTERFACE SYSTEM O2 SAT EST ABG POC 95 95 - 99 % INTERFACE SYSTEM PATIENT'S TEMPERATURE 37.0 Degree C INTERFACE SYSTEM BASE EXCESS ABG -5.3(L) -2.0 - 3.0 mmol/L INTERFACE SYSTEM HCO3 ARTERIAL 22 22 - 26 mmol/L INTERFACE SYSTEM SODIUM POC 134(L) 135 - 145 mmol/L INTERFACE SYSTEM POTASSIUM POC 4.6 3.5 - 4.9 mmol/L INTERFACE SYSTEM CALICUM IONIZED, WHOLE BLOOD 4.29(L) 4.76 - 5.16 mg/dL INTERFACE SYSTEM HEMATOCRIT POC 36.0(L) 40.0 - 48.0 % INTERFACE SYSTEM FIO2 50 INTERFACE SYSTEM OXYGEN MODE SIMV/PSV8 INTERFAC E SYSTEM PEEP POC 5 INTERFACE SYSTEM COMMENT, GASES POC MD AWARE INTERFACE SYSTEM 02/23/2006 1:20 AM [employer] [employer] Daniela Abad MD CHEMISTRY ORDERABLES Final R esult Performing Organization Address [facility] Phone Number INTERFACE SYSTEM Refer to clinic/hospital department * (ABNORMAL) POC RT, BLOOD GASES (02/22/2006 10:23 PM [facility] HAND) PH ARTERIAL 7.30(L) 7.35 - 7.45 INTERFACE SYSTEM PCO2 ARTERIAL 50(H) 35 - 48 mm Hg INTERFACE SYSTEM PO2 ARTERIAL 67(L) 83 - 108 mm Hg INTERFACE SYSTEM O2 SAT EST ABG POC 91(L) 95 - 99 % INTERFACE SYSTEM PATIENT'S TEMPERATURE 37.0 Degree C INTERFACE SYSTEM BASE EXCESS ABG -2.3(L) -2.0 - 3.0 mmol/L INTERFACE SYSTEM HCO3 ARTERIAL 25 22 - 26 mmol/L INTERFACE SYSTEM SODIUM POC 133(L) 135 - 145 mmol/L INTERFACE SYSTEM POTASSIUM POC 4.5 3.5 - 4.9 mmol/L INTERFACE SYSTEM CALICUM IONIZED, WHOLE BLOOD 4.49(L) 4.76 - 5.16 mg/dL INTERFACE SYSTEM HEMATOCRIT POC 40.0 40.0 - 48.0 % INTERFACE SYSTEM FIO2 40 INTERFACE SYSTEM OXYGEN MODE SIMV/PSV8 INTERFAC E SYSTEM PEEP POC 5 INTERFACE SYSTEM COMMENT, GASES POC MD AWARE INTERFACE SYSTEM 02/22/2006 10:2 3 PM [facility] [employer] Daniela Abad MD CHEMISTRY ORDERABLES Final R esult Performing Organization Address [facility] Phone Number INTERFACE SYSTEM Refer to clinic/hospital department * (ABNORMAL) CK TOTAL, RELATIVE INDEX (02/22/2006 10:23 PM [facility] HAND) CK 420(H) 10 - 170 U/L INTERFACE SYSTEM CARDIAC RELATIVE INDEX 5.2(H) <=4.0 INTERFACE SYSTEM 02/22/2006 10:2 3 PM [employer] [employer] Priscilla Alva MD CHEMISTRY ORDERABLES Final Result Performing Organization Address [facility] Phone Number INTERFACE SYSTEM Refer to clinic/hospital department * (ABNORMAL) CKMB W/REFLEX CK (02/22/2006 10:23 PM [facility]) CKMB 21.8(AA) <=6.7 ng/mL INTERFACE SYSTEM Comment:Persistent abnormal result CKMB INTERP See Below INTERFAC E SYSTEM Comment:Elevated CKMB,Consis tent with Myocardial Injury 02/22/2006 10:2 3 PM [facility] [employer] Priscilla Alva MD CHEMISTRY ORDERABLES Final Result Performing Organization Address [facility] Phone Number INTERFACE SYSTEM Refer to clinic/hospital department * (ABNORMAL) TROPONIN (W/REFLEX CKMB/CK) (02/22/2006 10:23 PM BASTER HAND) Pathologist [facility] TROPONIN T 1.14(AA) <=0.03 ng/mL INTERFACE SYSTEM Comment:Results called to an toni at 02/22/2006 11:24 PM and read back verified. TROPONIN T INTERP See Below INTERFACE SYSTEM Comment:Elevated Troponin-T, Consistent with Myocardial Injury 02/22/2006 10:2 3 PM [facility] HAND us Priscilla Alva MD CHEMISTRY ORDERABLES Final Result Performing Organization Address [facility] Phone Number INTERFACE SYSTEM Refer to clinic/hospital department * MAGNESIUM LEVEL (02/22/2006 10:23 PM BASTER HAND) [facility] MAGNESIUM 2.1 1.5 - 2.5 mg/dL INTERFACE SYSTEM 02/22/2006 10:2 3 PM [employer] HAND Priscilla Alva MD CHEMISTRY ORDERABLES Final Result Performing Organization Address [facility] Phone Number INTERFACE SYSTEM Refer to clinic/hospital department * POTASSIUM LEVEL (02/22/2006 10:23 PM [facility]ER HAND) Pathologist [facility] POTASSIUM 4.6 3.5 - 4.9 mmol/L INTERFACE SYSTEM 02/22/2006 10:2 3 PM [employer] [employer] us Priscilla Alva MD CHEMISTRY ORDERABLES Final Result Performing Organization Address [facility] Phone Number INTERFACE SYSTEM Refer to clinic/hospital department * (ABNORMAL) POC RT, BLOOD GASES (02/22/2006 5:51 PM [facility] HAND) Pathologist [facility] PH ARTERIAL 7.41 7.35 - 7.45 INTERFACE SYSTEM PCO2 ARTERIAL 39 35 - 48 mm Hg INTERFACE SYSTEM PO2 ARTERIAL 137(H) 83 - 108 mm Hg INTERFACE SYSTEM O2 SAT EST ABG POC 99 95 - 99 % INTERFACE SYSTEM PATIENT'S TEMPERATURE 37.0 Degree C INTERFACE SYSTEM BASE EXCESS ABG 0.1 -2.0 - 3.0 mmol/L INTERFACE SYSTEM HCO3 ARTERIAL 25 22 - 26 mmol/L INTERFACE SYSTEM SODIUM POC 133(L) 135 - 145 mmol/L INTERFACE SYSTEM POTASSIUM POC 4.2 3.5 - 4.9 mmol/L INTERFACE SYSTEM CALICUM IONIZED, WHOLE BLOOD 4.61(L) 4.76 - 5.16 mg/dL INTERFACE SYSTEM HEMATOCRIT POC 29.0(L) 40.0 - 48.0 % INTERFACE SYSTEM FIO2 70 INTERFACE SYSTEM OXYGEN MODE SIMV/PSV8 INTERFAC E SYSTEM PEEP POC 5 INTERFACE SYSTEM COMMENT, GASES POC RN NOTIFIED INTERFACE SYSTEM 02/22/2006 5:51 PM [employer] [employer] Daniela Abad MD CHEMISTRY ORDERABLES Final R esult Performing Organization Address [facility] de Phone Number INTERFACE SYSTEM Refer to clinic/hospital department * (ABNORMAL) CVR ONLY, CKMB/CK (02/22/2006 5:40 PM [facility]ER HAND) Pathologist [facility] CKMB 18.2(AA) <=6.7 ng/mL INTERFACE SYSTEM Comment:Results called to tr acmauro at 02/22/2006 7:46 PM and read back verified. CKMB INTERP See Below INTERFAC E SYSTEM Comment:Elevated CKMB,Consis tent with Myocardial Injury. CK 219(H) 10 - 170 U/L INTERFACE SYSTEM CARDIAC RELATIVE INDEX 8.3(H) <=4.0 INTERFACE SYSTEM 02/22/2006 5:40 PM [employer] Priscilla Alva MD CHEMISTRY ORDERABLES Final Result Performing Organization Address [facility] Phone Number INTERFACE SYSTEM Refer to clinic/hospital department * (ABNORMAL) CBC WITH DIFFERENTIAL (02/22/2006 5:40 PM [facility] HAND) NEUTROPHILS 75(H) 45 - 70 % INTERFAC E SYSTEM LYMPHOCYTES 20 16 - 45 % INTERFAC E SYSTEM MONOCYTES 4 3 - 13 % INTERFACE SYSTEM EOSINOPHILS 1 0 - 7 % INTERFAC E SYSTEM BASOPHILS 0 0 - 2 % INTERFACE SYSTEM NEUTROPHIL ABSOLUTE 15.00(H) 1.90 - 7.00 K/uL INTERFACE SYSTEM LYMPHOCYTE ABSOLUTE 3.98 0.70 - 4.50 K/uL INTERFACE SYSTEM MONOCYTE ABSOLUTE 0.86 0.10 - 1.30 K/uL INTERFACE SYSTEM EOSINOPHIL ABSOLUTE 0.09 0.00 - 0.70 K/uL INTERFACE SYSTEM BASOPHILS ABSOLUTE 0.04 0.00 - 0.20 K/uL INTERFACE SYSTEM 02/22/2006 5:40 PM [employer] [employer] Priscilla Alva MD HEMATOLOGY ORDERABLES Matilde l Result Performing Organization Address [facility] Phone Number INTERFACE SYSTEM Refer to clinic/hospital department * (ABNORMAL) CBC WITH DIFFERENTIAL (02/22/2006 5:40 PM [facility] HAND) WBC 20.0(H) 4.0 - 9.8 K/uL INTERFACE SYSTEM RBC 3.40(L) 4.50 - 5.40 M/uL INTERFACE SYSTEM HEMOGLOBIN 10.8(L) 13.6 - 16.5 g/dL INTERFACE SYSTEM HEMATOCRIT 32.2(L) 40.0 - 48.0 % INTERFACE SYSTEM MCV 94.7 82.0 - 99.0 fL INTERFACE SYSTEM MCH 31.8 27.2 - 32.6 pg INTERFACE SYSTEM MCHC 33.5 31.5 - 35.5 % INTERFACE SYSTEM RDW 13.4 11.5 - 14.5 % INTERFACE SYSTEM RDW-STDEV 46.0 37.1 - 48.7 fL INTERFACE SYSTEM PLATELETS 114(L) 140 - 350 K/uL INTERFACE SYSTEM MPV 11.3 9.3 - 12.4 fL INTERFACE SYSTEM 02/22/2006 5:40 PM [employer] [employer] Priscilla Alva MD HEMATOLOGY ORDERABLES Matilde l Result Performing Organization Address [facility] Phone Number INTERFACE SYSTEM Refer to clinic/hospital department * (ABNORMAL) PT AND APTT (02/22/2006 5:40 PM B[facility]ER HAND) PROTIME 17.9(H) 12.7 - 15.1 Seconds INTERFACE SYSTEM INR 1.4(H) 0.9 - 1.1 INTERFACE SYSTEM Comment: INR Therapeutic Range: Adult: 2.0 - 3.0 for pulmonary embolism or prophylaxis against venous thrombosis or systemic embolization. 2.0 - 3.0 for patients with tissue heart valves. 2.5 - 3.5 for patients with mechanical heart valves or post ID. Pediatric (12 years and under): 1.5 - 3.0 Although the target range in children is not well established , INR values of 1.5 - 3.0 are recommended for most patients. Higher values have been used in children with prosthetic cardiac valves and hereditary clotting disorders. (<3 days) therapeutic ranges have not been established. PTT 38.2(H) 24.4 - 36.4 Seconds INTERFACE SYSTEM Comment: PTT Therapeutic Range: Heparin Level PTT (seconds) <0.10 units/mL <53 0.10 - 0.30 units/mL 53 - 67 0.30 - 0.70 units/mL* 67 - 95* 0.70 - 1.00 units/mL 95 - 116 *corresponds to therapeutic range for unfractionated heparin 02/22/2006 5:40 PM [employer] HAND Priscilla Alva MD HEMATOLOGY ORDERABLES Matilde l Result Performing Organization Address [facility] Phone Number INTERFACE SYSTEM Refer to clinic/hospital department * (ABNORMAL) MAGNESIUM LEVEL (02/22/2006 5:40 PM B[employer]ER HAND) MAGNESIUM 2.7(H) 1.5 - 2.5 mg/dL INTERFACE SYSTEM 02/22/2006 5:40 PM [employer] HAND Priscilla Alva MD CHEMISTRY ORDERABLES Final Result Performing Organization Address [facility] Phone Number INTERFACE SYSTEM Refer to clinic/hospital department * (ABNORMAL) BASIC METABOLIC PANEL (02/22/2006 5:40 PM [facility] HAND) GLUCOSE 101(H) 65 - 99 mg/dL INTERFACE SYSTEM CREATININE 0.76 0.67 - 1.17 mg/dL INTERFACE SYSTEM Comment:Note: Effective 01/12 New Methodology and Reference Ranges CALCIUM 7.1(L) 8.4 - 10.2 mg/dL INTERFACE SYSTEM Comment:Significant change f rom prior result, correlate clinically and redraw if necessary. BUN 16 6 - 20 mg/dL INTERFACE SYSTEM SODIUM 140 135 - 145 mmol/L INTERFACE SYSTEM POTASSIUM 4.2 3.5 - 4.9 mmol/L INTERFACE SYSTEM CHLORIDE 112(H) 96 - 108 mmol/L INTERFACE SYSTEM CO2 26 22 - 30 mmol/L INTERFACE SYSTEM GFR, >60 >=60 mL/min/1. 7 sq meter INTERFACE SYSTEM GFR >60 >=60 mL/min/1. 7 sq meter INTERFACE SYSTEM Comment: Estimated GFR rate interpretative information for both Americans and non- Americans is available on the [facility] [place] at: [email or web address] Select: Lab Policies and Procedures Select: Reference Ranges - GFR 02/22/2006 5:40 PM [employer] HAND us Priscilla Alva MD CHEMISTRY ORDERABLES Final Result Performing Organization Address [facility] Co de Phone Number INTERFACE SYSTEM Refer to clinic/hospital department * (ABNORMAL) POC RT, BLOOD GASES (02/22/2006 5:19 PM [facility] HAND) PH ARTERIAL 7.40 7.35 - 7.45 INTERF ERICA SYSTEM PCO2 ARTERIAL 41 35 - 48 mm Hg INTERFACE SYSTEM PO2 ARTERIAL 309(H) 83 - 108 mm Hg INTERFACE SYSTEM O2 SAT EST ABG POC 100(H) 95 - 99 % INTERFACE SYSTEM PATIENT'S TEMPERATURE 37.0 Degree C INTERFACE SYSTEM BASE EXCESS ABG 0.5 -2.0 - 3.0 mmol/L INTERFACE SYSTEM HCO3 ARTERIAL 25 22 - 26 mmol/L INTERFACE SYSTEM SODIUM POC 133(L) 135 - 145 mmol/L INTERFACE SYSTEM POTASSIUM POC 4.5 3.5 - 4.9 mmol/L INTERFACE SYSTEM CALICUM IONIZED, WHOLE BLOOD 4.73(L) 4.76 - 5.16 mg/dL INTERFACE SYSTEM HEMATOCRIT POC 30.0(L) 40.0 - 48.0 % INTERFACE SYSTEM TCO2, ABG POC 27(H) 19 - 24 mmol/L INTERFACE SYSTEM LACTIC ACID 1.1 0.5 - 2.2 mmol/L INTERFACE SYSTEM GLUCOSE POC 98 65 - 109 mg/dL INTERFACE SYSTEM 02/22/2006 5:19 PM [employer] HAND us Daniela Abad MD CHEMISTRY ORDERABLES Final R esult Performing Organization Address [facility]/ZIP Co de Phone Number INTERFACE SYSTEM Refer to clinic/hospital department * (ABNORMAL) POC RT, BLOOD GASES (02/22/2006 4:50 PM [employer] HAND) PH ARTERIAL 7.42 7.35 - 7.45 INTERFACE SYSTEM PCO2 ARTERIAL 39 35 - 48 mm Hg INTERFACE SYSTEM PO2 ARTERIAL 255(H) 83 - 108 mm Hg INTERFACE SYSTEM O2 SAT EST ABG POC 100(H) 95 - 99 % INTERFACE SYSTEM PATIENT'S TEMPERATURE 37.0 Degree C INTERFACE SYSTEM BASE EXCESS ABG 0.8 -2.0 - 3.0 mmol/L INTERFACE SYSTEM HCO3 ARTERIAL 25 22 - 26 mmol/L INTERFACE SYSTEM SODIUM POC 134(L) 135 - 145 mmol/L INTERFACE SYSTEM POTASSIUM POC 4.5 3.5 - 4.9 mmol/L INTERFACE SYSTEM CALICUM IONIZED, WHOLE BLOOD 5.01 4.76 - 5.16 mg/dL INTERFACE SYSTEM HEMATOCRIT POC 26.0(L) 40.0 - 48.0 % INTERFACE SYSTEM COMMENT, GASES POC POST BYPASS INTERFACE SYSTEM TCO2, ABG POC 27(H) 19 - 24 mmol/L INTERFACE SYSTEM LACTIC ACID 1.3 0.5 - 2.2 mmol/L INTERFACE SYSTEM GLUCOSE POC 105 65 - 109 mg/dL INTERFACE SYSTEM 02/22/2006 4:50 PM [employer] HAND us Daniela Abad MD CHEMISTRY ORDERABLES Final R esult INTERFACE SYSTEM Refer to clinic/hospital department * (ABNORMAL) POC RT, BLOOD GASES (02/22/2006 4:29 PM [employer] HAND) PH ARTERIAL 7.50(H) 7.35 - 7.45 INTERFACE SYSTEM PCO2 ARTERIAL 30(L) 35 - 48 mm Hg INTERFACE SYSTEM PO2 ARTERIAL 304(H) 83 - 108 mm Hg INTERFACE SYSTEM O2 SAT EST ABG POC 100(H) 95 - 99 % INTERFACE SYSTEM PATIENT'S TEMPERATURE 37.0 Degree C INTERFACE SYSTEM BASE EXCESS ABG 0.4 -2.0 - 3.0 mmol/L INTERFACE SYSTEM HCO3 ARTERIAL 23 22 - 26 mmol/L INTERFACE SYSTEM SODIUM POC 132(L) 135 - 145 mmol/L INTERFACE SYSTEM POTASSIUM POC 5.1(H) 3.5 - 4.9 mmol/L INTERFACE SYSTEM CALICUM IONIZED, WHOLE BLOOD 4.53(L) 4.76 - 5.16 mg/dL INTERFACE SYSTEM HEMATOCRIT POC 23.0(AA) 40.0 - 48.0 % INTERFACE SYSTEM COMMENT, GASES POC ON BYPASS INTERFACE SYSTEM TCO2, ABG POC 24 19 - 24 mmol/L INTERFACE SYSTEM LACTIC ACID 1.5 0.5 - 2.2 mmol/L INTERFACE SYSTEM GLUCOSE POC 109 65 - 109 mg/dL INTERFACE SYSTEM 02/22/2006 4:29 PM [employer] HAND Daniela Abad MD CHEMISTRY ORDERABLES Final R esult Performing Organization Address [facility] de Phone Number INTERFACE SYSTEM Refer to clinic/hospital department * (ABNORMAL) POC RT, BLOOD GASES (02/22/2006 4:09 PM B[employer]ER HAND) PH ARTERIAL 7.48(H) 7.35 - 7.45 INTERFACE SYSTEM PCO2 ARTERIAL 32(L) 35 - 48 mm Hg INTERFACE SYSTEM PO2 ARTERIAL 335(H) 83 - 108 mm Hg INTERFACE SYSTEM O2 SAT EST ABG POC 100(H) 95 - 99 % INTERFACE SYSTEM PATIENT'S TEMPERATURE 35.0 Degree C INTERFACE SYSTEM PH TEMP CORRECT 7.51 INTE RFACE SYSTEM PCO2 TEMP CORRECT 29 mm Hg INTERFACE SYSTEM PO2 TEMP CORRECT 325 mm Hg INTERFACE SYSTEM BASE EXCESS ABG 0.5 -2.0 - 3.0 mmol/L INTERFACE SYSTEM HCO3 ARTERIAL 24 22 - 26 mmol/L INTERFACE SYSTEM SODIUM POC 133(L) 135 - 145 mmol/L INTERFACE SYSTEM POTASSIUM POC 5.4(H) 3.5 - 4.9 mmol/L INTERFACE SYSTEM CALICUM IONIZED, WHOLE BLOOD 4.49(L) 4.76 - 5.16 mg/dL INTERFACE SYSTEM HEMATOCRIT POC 26.0(L) 40.0 - 48.0 % INTERFACE SYSTEM COMMENT, GASES POC ON BYPASS INTERFACE SYSTEM TCO2, ABG POC 25(H) 19 - 24 mmol/L INTERFACE SYSTEM LACTIC ACID 1.4 0.5 - 2.2 mmol/L INTERFACE SYSTEM GLUCOSE POC 115(H) 65 - 109 mg/dL INTERFACE SYSTEM 02/22/2006 4:09 PM [employer] HAND Daniela Abad MD CHEMISTRY ORDERABLES Final R esult Performing Organization Address [facility]/ZIP Co de Phone Number INTERFACE SYSTEM Refer to clinic/hospital department * (ABNORMAL) POC RT, BLOOD GASES (02/22/2006 3:44 PM [employer] HAND) PH ARTERIAL 7.44 7.35 - 7.45 INTERFACE SYSTEM PCO2 ARTERIAL 35 35 - 48 mm Hg INTERFACE SYSTEM PO2 ARTERIAL 331(H) 83 - 108 mm Hg INTERFACE SYSTEM O2 SAT EST ABG POC 100(H) 95 - 99 % INTERFACE SYSTEM PATIENT'S TEMPERATURE 37.0 Degree C INTERFACE SYSTEM BASE EXCESS ABG -0.2 -2.0 - 3.0 mmol/L INTERFACE SYSTEM HCO3 ARTERIAL 24 22 - 26 mmol/L INTERFACE SYSTEM SODIUM POC 132(L) 135 - 145 mmol/L INTERFACE SYSTEM POTASSIUM POC 4.8 3.5 - 4.9 mmol/L INTERFACE SYSTEM CALICUM IONIZED, WHOLE BLOOD 4.49(L) 4.76 - 5.16 mg/dL INTERFACE SYSTEM HEMATOCRIT POC 24.0(L) 40.0 - 48.0 % INTERFACE SYSTEM COMMENT, GASES POC ON BYPASS INTERFACE SYSTEM TCO2, ABG POC 25(H) 19 - 24 mmol/L INTERFACE SYSTEM LACTIC ACID 2.0 0.5 - 2.2 mmol/L INTERFACE SYSTEM GLUCOSE POC 102 65 - 109 mg/dL INTERFACE SYSTEM 02/22/2006 3:44 PM [employer] HAND us Daniela Abad MD CHEMISTRY ORDERABLES Final R esult INTERFACE SYSTEM Refer to clinic/hospital department * (ABNORMAL) POC RT, BLOOD GASES (02/22/2006 3:21 PM [employer] HAND) PH ARTERIAL 7.39 7.35 - 7.45 INTERFACE SYSTEM PCO2 ARTERIAL 43 35 - 48 mm Hg INTERFACE SYSTEM PO2 ARTERIAL 189(H) 83 - 108 mm Hg INTERFACE SYSTEM O2 SAT EST ABG POC 100(H) 95 - 99 % INTERFACE SYSTEM PATIENT'S TEMPERATURE 34.0 Degree C INTERFACE SYSTEM PH TEMP CORRECT 7.43 INTE RFACE SYSTEM PCO2 TEMP CORRECT 38 mm Hg INTERFACE SYSTEM PO2 TEMP CORRECT 174 mm Hg INTERFACE SYSTEM BASE EXCESS ABG 0.9 -2.0 - 3.0 mmol/L INTERFACE SYSTEM HCO3 ARTERIAL 26 22 - 26 mmol/L INTERFACE SYSTEM SODIUM POC 133(L) 135 - 145 mmol/L INTERFACE SYSTEM POTASSIUM POC 5.5(H) 3.5 - 4.9 mmol/L INTERFACE SYSTEM CALICUM IONIZED, WHOLE BLOOD 4.65(L) 4.76 - 5.16 mg/dL INTERFACE SYSTEM HEMATOCRIT POC 27.0(L) 40.0 - 48.0 % INTERFACE SYSTEM COMMENT, GASES POC ON BYPASS INTERFACE SYSTEM TCO2, ABG POC 27(H) 19 - 24 mmol/L INTERFACE SYSTEM LACTIC ACID 1.5 0.5 - 2.2 mmol/L INTERFACE SYSTEM GLUCOSE POC 89 65 - 109 mg/dL INTERFACE SYSTEM 02/22/2006 3:21 PM [employer] HAND us Daniela Abad MD CHEMISTRY ORDERABLES Final R esult INTERFACE SYSTEM Refer to clinic/hospital department * (ABNORMAL) POC RT, BLOOD GASES (02/22/2006 3:17 PM [facility]ER HAND) PH MVBG 7.37 7.32 - 7.43 INTERFACE SYSTEM PCO2 VENOUS 48 38 - 50 mm Hg INTERFACE SYSTEM PO2 MVBG 38 25 - 40 mm Hg INTERFACE SYSTEM O2 SAT EST MVBG POC 70 40 - 70 % INTERFACE SYSTEM PATIENT'S TEMPERATURE 34.0 Degree C INTERFACE SYSTEM PH TEMP CORRECT 7.41 INTE RFACE SYSTEM PCO2 TEMP CORRECT 42 mm Hg INTERFACE SYSTEM PO2 TEMP CORRECT 31 mm Hg INTERFACE SYSTEM BASE EXCESS VENOUS 2.0 -2.0 - 3.0 mmol/L INTERFACE SYSTEM HCO3 MIXED VENOUS 28 22 - 29 mmol/L INTERFACE SYSTEM SODIUM POC 132(L) 135 - 145 mmol/L INTERFACE SYSTEM POTASSIUM POC 5.3(H) 3.5 - 4.9 mmol/L INTERFACE SYSTEM CALICUM IONIZED, WHOLE BLOOD 4.65(L) 4.76 - 5.16 mg/dL INTERFACE SYSTEM HEMATOCRIT POC 27.0(L) 40.0 - 48.0 % INTERFACE SYSTEM COMMENT, GASES POC ON BYPASS INTERFACE SYSTEM TCO2, MVBG POC 29(H) 22 - 26 mmol/L INTERFACE SYSTEM LACTIC ACID 1.4 0.5 - 2.2 mmol/L INTERFACE SYSTEM GLUCOSE POC 91 65 - 109 mg/dL INTERFACE SYSTEM 02/22/2006 3:17 PM [employer] HAND Daniela Abad MD CHEMISTRY ORDERABLES Final R esult INTERFACE SYSTEM Refer to clinic/hospital department * (ABNORMAL) POC RT, BLOOD GASES (02/22/2006 2:55 PM B[employer]ER HAND) PH ARTERIAL 7.38 7.35 - 7.45 INTERFACE SYSTEM PCO2 ARTERIAL 49(H) 35 - 48 mm Hg INTERFACE SYSTEM PO2 ARTERIAL 317(H) 83 - 108 mm Hg INTERFACE SYSTEM O2 SAT EST ABG POC 100(H) 95 - 99 % INTERFACE SYSTEM PATIENT'S TEMPERATURE 37.0 Degree C INTERFACE SYSTEM BASE EXCESS ABG 3.1(H) -2.0 - 3.0 mmol/L INTERFACE SYSTEM HCO3 ARTERIAL 29(H) 22 - 26 mmol/L INTERFACE SYSTEM SODIUM POC 133(L) 135 - 145 mmol/L INTERFACE SYSTEM POTASSIUM POC 4.1 3.5 - 4.9 mmol/L INTERFACE SYSTEM CALICUM IONIZED, WHOLE BLOOD 4.53(L) 4.76 - 5.16 mg/dL INTERFACE SYSTEM HEMATOCRIT POC 38.0(L) 40.0 - 48.0 % INTERFACE SYSTEM COMMENT, GASES POC PRE-BYPAS S INTERFACE SYSTEM TCO2, ABG POC 31(H) 19 - 24 mmol/L INTERFACE SYSTEM LACTIC ACID 0.8 0.5 - 2.2 mmol/L INTERFACE SYSTEM GLUCOSE POC 89 65 - 109 mg/dL INTERFACE SYSTEM 02/22/2006 2:55 PM [employer] HAND Daniela Abad MD CHEMISTRY ORDERABLES Final R esult INTERFACE SYSTEM Refer to clinic/hospital department * (ABNORMAL) POC RT, BLOOD GASES (02/22/2006 1:46 PM [employer] HAND) PH ARTERIAL 7.40 7.35 - 7.45 INTERFACE SYSTEM PCO2 ARTERIAL 48 35 - 48 mm Hg INTERFACE SYSTEM PO2 ARTERIAL 391(H) 83 - 108 mm Hg INTERFACE SYSTEM O2 SAT EST ABG POC 100(H) 95 - 99 % INTERFACE SYSTEM PATIENT'S TEMPERATURE 37.0 Degree C INTERFACE SYSTEM BASE EXCESS ABG 4.1(H) -2.0 - 3.0 mmol/L INTERFACE SYSTEM HCO3 ARTERIAL 30(H) 22 - 26 mmol/L INTERFACE SYSTEM SODIUM POC 134(L) 135 - 145 mmol/L INTERFACE SYSTEM POTASSIUM POC 3.7 3.5 - 4.9 mmol/L INTERFACE SYSTEM CALICUM IONIZED, WHOLE BLOOD 4.61(L) 4.76 - 5.16 mg/dL INTERFACE SYSTEM HEMATOCRIT POC 39.0(L) 40.0 - 48.0 % INTERFACE SYSTEM COMMENT, GASES POC POST INDUCTION INTERFACE SYSTEM TCO2, ABG POC 31(H) 19 - 24 mmol/L INTERFACE SYSTEM LACTIC ACID 0.6 0.5 - 2.2 mmol/L INTERFACE SYSTEM GLUCOSE POC 87 65 - 109 mg/dL INTERFACE SYSTEM 02/22/2006 1:46 PM [employer] HAND Daniela Abad MD CHEMISTRY ORDERABLES Final R esult Performing Organization Address [facility] de Phone Number INTERFACE SYSTEM Refer to clinic/hospital department * URINALYSIS (02/21/2006 6:41 PM [facility]) COLOR UA Pale Yellow INTERFAC E SYSTEM CLARITY UA Clear Clear INTERFACE SYSTEM SPECIFIC GRAVITY UA 1.021 1.001 - 1.035 INTERFACE SYSTEM PH UA 7.0 5.0 - 8.0 INTERFACE SYSTEM LEUKOCYTE ESTERASE UA Negative Negative INTERFACE SYSTEM NITRITE UA Negative Negative INTERFACE SYSTEM PROTEIN UA Negative Negative INTERFACE SYSTEM GLUCOSE UA Negative Negative INTERFACE SYSTEM KETONES UA Negative Negative INTERFACE SYSTEM UROBILINOGEN UA <1 <=1 mg/dL INTE RFACE SYSTEM BILIRUBIN UA Negative Negative INTERFA CE SYSTEM BLOOD UA Negative Negative INTERFACE SYSTEM 02/21/2006 6:41 PM [facility] HAND Nilson Forte MD URINE ORDERABLES Final Result Performing Organization Address [facility] Co de Phone Number INTERFACE SYSTEM Refer to clinic/hospital department * URINALYSIS WITH REFLEX CULTURE (02/21/2006 6:41 PM [facility] HAND) URINE CULTURE ORDER Not indicated INTERFACE SYSTEM Comment: Criteria for a reflex culture include one or more of the following: Abn ormal nitrite, leukocyte esterase, WBCs or RBCs. Lack of qualifying criteria does not exclude the possiblity of a urinary tract infection. Dilute urine, drug interference, etc. may decrease the sensitivity of the criteria analytes. 02/21/2006 6:41 PM BASTER HAND Nilson Forte MD URINE ORDERABLES Final Result Performing Organization Address [facility] Phone Number INTERFACE SYSTEM Refer to clinic/hospital department * (ABNORMAL) LIPID PANEL (02/21/2006 5:25 PM BASTER HAND) CHOLESTEROL 287(H) 100 - 199 mg/dL INTERFACE SYSTEM TRIGLYCERIDE 212(H) 10 - 149 mg/dL INTERFACE SYSTEM HDL 46 40 - 59 mg/dL INTERFACE SYSTEM CHOL/HDL RATIO 6.2(H) 2.0 - 5.0 INTER FACE SYSTEM LDL CALCULATED 199(H) <=99 mg/dL INTERFACE SYSTEM LIPID PANEL COMMENT See Below INTERFACE SYSTEM Comment: The adult ATP and pediatric NCEP classifications for lipids are available on the [facility] at: [email or web address] Select: Lab Policies and Procedures Select: Reference Ranges - Lipids 02/21/2006 5:25 PM BASTER HAND Andrea Gilbert CHEMISTRY ORDERABLES Final Resul t Performing Organization Address [facility] Number INTERFACE SYSTEM Refer to clinic/hospital department * CKMB W/REFLEX CK (02/21/2006 5:25 PM BASTER HAND) CKMB 4.0 <=6.7 ng/mL INTERFACE SYSTEM CKMB INTERP Negative INTERFAC E SYSTEM 02/21/2006 5:25 PM BASTER HAND Andrea Gilbert CHEMISTRY ORDERABLES Final Resul t Performing Organization Address [facility] Phone Number INTERFACE SYSTEM Refer to clinic/hospital department * (ABNORMAL) TROPONIN (W/REFLEX CKMB/CK) (02/21/2006 5:25 PM BASTER HAND) TROPONIN T 0.17(AA) <=0.03 ng/mL INTERFACE SYSTEM Comment:Results called to te rra at 02/21/2006 6:12 PM and read back verified. TROPONIN T INTERP See Below INTERFACE SYSTEM Comment:Elevated Troponin-T, Consistent with Myocardial Injury 02/21/2006 5:25 PM BASTER HAND Andrea Gilbert CHEMISTRY ORDERABLES Final Resul t Performing Organization Address City/[facility] de Phone Number INTERFACE SYSTEM Refer to clinic/hospital department * CBC WITH DIFFERENTIAL (02/21/2006 5:25 PM BASTER HAND) NEUTROPHILS 60 45 - 70 % INTERFAC E SYSTEM LYMPHOCYTES 33 16 - 45 % INTERFAC E SYSTEM MONOCYTES 6 3 - 13 % INTERFACE SYSTEM EOSINOPHILS 1 0 - 7 % INTERFAC E SYSTEM BASOPHILS 0 0 - 2 % INTERFACE SYSTEM NEUTROPHIL ABSOLUTE 6.24 1.90 - 7.00 K/uL INTERFACE SYSTEM LYMPHOCYTE ABSOLUTE 3.46 0.70 - 4.50 K/uL INTERFACE SYSTEM MONOCYTE ABSOLUTE 0.59 0.10 - 1.30 K/uL INTERFACE SYSTEM EOSINOPHIL ABSOLUTE 0.14 0.00 - 0.70 K/uL INTERFACE SYSTEM BASOPHILS ABSOLUTE 0.03 0.00 - 0.20 K/uL INTERFACE SYSTEM 02/21/2006 5:25 PM BASTER HAND Daniela Abad MD HEMATOLOGY ORDERABLES Final Result Performing Organization Address [facility] Phone Number INTERFACE SYSTEM Refer to clinic/hospital department * (ABNORMAL) CBC WITH DIFFERENTIAL (02/21/2006 5:25 PM BASTER HAND) WBC 10.5(H) 4.0 - 9.8 K/uL INTERFACE SYSTEM RBC 4.39(L) 4.50 - 5.40 M/uL INTERFACE SYSTEM HEMOGLOBIN 13.7 13.6 - 16.5 g/dL INTERFACE SYSTEM HEMATOCRIT 41.5 40.0 - 48.0 % INTERFACE SYSTEM MCV 94.5 82.0 - 99.0 fL INTERFACE SYSTEM MCH 31.2 27.2 - 32.6 pg INTERFACE SYSTEM MCHC 33.0 31.5 - 35.5 % INTERFACE SYSTEM RDW 13.5 11.5 - 14.5 % INTERFACE SYSTEM RDW-STDEV 46.4 37.1 - 48.7 fL INTERFACE SYSTEM PLATELETS 218 140 - 350 K/uL INTERFACE SYSTEM MPV 11.0 9.3 - 12.4 fL INTERFACE SYSTEM 02/21/2006 5:25 PM BASTER HAND Daniela Abad MD HEMATOLOGY ORDERABLES Final Result Performing Organization Address City/[facility]/ZIP Co de Phone Number INTERFACE SYSTEM Refer to clinic/hospital department * (ABNORMAL) COMPREHENSIVE METABOLIC PANEL (02/21/2006 5:25 PM BASTER HAND) GLUCOSE 85 65 - 99 mg/dL INTERFACE SYSTEM CREATININE 0.63(L) 0.67 - 1.17 mg/dL INTERFACE SYSTEM Comment:Note: Effective 01/12 New Methodolgy and Reference Ranges CALCIUM 8.6 8.4 - 10.2 mg/dL INTERFACE SYSTEM ALKALINE PHOSPHATASE 64 40 - 129 U/L INTERFACE SYSTEM AST 32 12 - 38 U/L INTERFACE SYSTEM ALT 45(H) 0 - 41 U/L INTERFACE SYSTEM TOTAL PROTEIN 6.8 6.3 - 8.6 g/dL INTERFACE SYSTEM ALBUMIN 4.1 3.4 - 4.8 g/dL INTERFACE SYSTEM BILIRUBIN TOTAL 0.5 0.2 - 1.0 mg/dL INTERFACE SYSTEM BUN 12 6 - 20 mg/dL INTERFACE SYSTEM SODIUM 138 135 - 145 mmol/L INTERFACE SYSTEM POTASSIUM 3.9 3.5 - 4.9 mmol/L INTERFACE SYSTEM CHLORIDE 103 96 - 108 mmol/L INTERFACE SYSTEM CO2 28 22 - 30 mmol/L INTERFACE SYSTEM GFR, >60 >=60 mL/min/1. 7 sq meter INTERFACE SYSTEM GFR >60 >=60 mL/min/1. 7 sq meter INTERFACE SYSTEM Comment: Estimated GFR rate interpretative information for both Americans and non- Americans is available on the [facility] at: [email or web address] Select: Lab Policies and Procedures Select: Reference Ranges - GFR 02/21/2006 5:25 PM BASTER HAND us Daniela Abad MD CHEMISTRY ORDERABLES Final R esult Performing Organization Address City/[facility]/ZIP Co de Phone Number INTERFACE SYSTEM Refer to clinic/hospital department * (ABNORMAL) PT AND APTT (02/21/2006 5:25 PM BASTER HAND) PTT 37.6(H) 24.4 - 36.4 Seconds INTERFACE SYSTEM Comment: PTT Therapeutic Range: Heparin Level PTT (seconds) <0.10 units/mL <53 0.10 - 0.30 units/mL 53 - 67 0.30 - 0.70 units/mL* 67 - 95* 0.70 - 1.00 units/mL 95 - 116 *corresponds to therapeutic range for unfractionated heparin PROTIME 14.0 12.7 - 15.1 Seconds INTERFACE SYSTEM INR 1.1 0.9 - 1.1 INTERFACE SYSTEM Comment: INR Therapeutic Range: Adult: 2.0 - 3.0 for pulmonary embolism or prophylaxis against venous thrombosis or systemic embolization. 2.0 - 3.0 for patients with tissue heart valves. 2.5 - 3.5 for patients with mechanical heart valves or post ID. Pediatric (12 years and under): 1.5 - 3.0 Although the target range in children is not well established , INR values of 1.5 - 3.0 are recommended for most patients. Higher values have been used in children with prosthetic cardiac valves and hereditary clotting disorders. (<3 days) therapeutic ranges have not been established. 02/21/2006 5:25 PM BASTER HAND us Daniela Abad MD HEMATOLOGY ORDERABLES Final Result INTERFACE SYSTEM Refer to clinic/hospital department documented in this encounter Visit Diagnoses Diagnosis Coronary atherosclerosis of un[place] coronary artery- Primary documented in this encounter Care Teams Landscape Foreman Relationship Specialty Start Date End Date Jose D Stern MD [address] [place] [address] PCP - General 02/21/06 documented as of this encounter
--- OUTSIDE RECORDS SUMMARY | 2024-07-18 09:10 | XMS_ITS | Encounter Summary ---
Author Organization [facility] Address [address] [place] [address] Care Team Providers Care Vehicle Safety Inspector Name Role Phone Jose D Stern MD Primary Care Provider [phone] Encounter Details Date Type Department Care Team (Latest Contact Info) Description 03/24/2006 Outpatient Historical [facility] JOHANN Alva, Priscilla Mendez MD [address] [place] [address] Coronary Atherosclerosis of [place] Coronary Artery (Primary Dx) Social History Tobacco Use Types Packs/Day Years Used Date Smoking Tobacco: Never Assessed Sex and Gender Information Value Date Recorded Sex Assigned at Not on file 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
--- OUTSIDE RECORDS SUMMARY | 2024-07-18 09:10 | XMS_ITS | Encounter Summary ---
Author Organization [facility] Address [address] [place] [address] Care Team Providers Care Pest Control Worker Name Role Phone Jose D Stern MD Primary Care Provider [phone] Encounter Details Date Type Department Care Team (Late st Contact Info) Description 02/22/2006 Outpatient Historical [facility] Cardiovas and Thor Surg at [facility] [address] [place] [address] Priscilla Alva MD [address] [facility] [address] [place] [address] Social History Tobacco Use Types Packs/Day Years Used Date Smoking Tobacco: Never Assessed Sex and Gender Information Value Date Recorded Sex Assigned at Not on file Legal 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
--- OUTSIDE RECORDS SUMMARY | 2024-07-18 09:10 | XMS_ITS | Encounter Summary ---
Author Organization [employer] Address [address] [place] [address] Care Team Providers Care Mixing Picker Tender Name Role Phone Jose D Stern MD Primary Care Provider [phone] Encounter Details Date Type Department Care Team (Late st Contact Info) Description 02/25/2006 Outpatient Historical [facility] [address] 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
--- OUTSIDE RECORDS SUMMARY | 2024-07-18 09:10 | XMS_ITS | Encounter Summary ---
Author Organization [facility] Address [address] [place] [address] Care Team Providers Care Fire Alarm Repairer Name Role Phone Jose D Stern MD Primary Care Provider [phone] Encounter Details Date Type Department Care Team (Late st Contact Info) Description 03/24/2006 Outpatient Historical [facility] Cardiovas and Thor Surg at [facility] [address] [place] [address] Priscilla Alva MD [address] [facility] [address] [place] [address] Social History Tobacco Use Types Packs/Day Years Used Date Smoking Tobacco: Never Assessed Sex and Gender Information Value Date Recorded Sex Assigned at Not on file 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
[2024-07-18 09:36] LABS: Basophils Absolute Auto 0.1 K/mm3 (0.0-0.1); Basophils Percent Auto 0.6 % (0.2-1.2); Eosinophils Absolute Auto 0.3 K/mm3 (0-0.3); Eosinophils Percent Auto 2.1 % (0-4.4); Hematocrit 41.5 % (42.0-52.0); Hemoglobin 13.2 g/dL (14.0-18.0); Immature Granulocyte Absolute 0.05 K/mm3 (0.00-0.031); Immature Granulocyte Percent A 0.4 % (0-0.5); Lymphocytes Absolute Auto 3.79 K/mm3 (0.9-3.2); Lymphocytes Percent Auto 32.3 % (18.3-44.2); Mean Corpuscular HGB Conc 31.8 g/dl (32-36); Mean Corpuscular Hemoglobin 29.9 pg (26-34); Mean Corpuscular Volume 94.1 fl (80-100); Mean Platelet Volume 11.1 fl (7.4-10.4); Monocytes Percent Auto 8.3 % (2.6-8.5); Neutrophils Absolute Auto 6.6 K/mm3 (1.3-6.7); Neutrophils Percent Auto 56.3 % (45.5-73.1); Platelet Count Result 213 k/mm3 (150-375); Red Blood Count 4.41 M/mm3 (4.6-6.20); Red Cell Distribution Width 12.1 % (11.5-14.5); White Blood Count 11.8 K/mm3 (4.5-10.0)
[2024-07-18 09:55] LABS: Alanine Aminotransferase 33 U/L (6-50); Albumin Level 4.5 g/dL (3.5-5.1); Alkaline Phosphatase 79 U/L (38-126); Anion Gap 7 mmol/L (4-12); Aspartate Amino Transferase 30 U/L (17-59); Bilirubin Indirect 0.4 mg/dL (0-1.1); Bilirubin,Total 0.6 mg/dL (0.2-1.3); Blood Urea Nitrogen 26 mg/dL (9-20); CRP < 0.5 mg/dL (<1.0); Calcium 8.9 mg/dL (8.4-10.2); Carbon Dioxide 29 mmol/L (22-30); Chloride 104 mmol/L (98-107); Estimated Glomerular Filt Rate 57; Glucose 91 mg/dL (65-110); Potassium 4.1 mmol/L (3.4-5.0); Sodium 140 mmol/L (137-145)
[2024-07-18 10:07] LABS: Add Urine Microscopic? YES; Appearance Urine Clear (Clear); Bacteria Urine None Seen /hpf; Bilirubin Urine Negative (Negative); Blood Urine Negative (Negative); Color Urine Yellow (Yellow); Glucose Urine UA Negative (Negative); Ketones Urine Trace mg/dL (Negative); Leukocyte Esterase Ur Negative LEU/UL (Negative); Mucus Urine Present /lpf; Need Manual Microscopic Reviewed; Nitrate Urine Negative (Negative); Protein Urine 1+ mg/dL (Negative); RBC Urine 0-2 /hpf (0-2); Specific Grav Ur 1.023 (1.001-1.035); Squamous Epithelial Cell Urine None Seen /hpf (Few); Urobilinogen Urine 0.2 mg/dL (<2.0); WBC Urine 0-5 /hpf (0-3); pH Urine 5.5 (5.0-9.0)
[2024-07-18 11:07] LABS: Erythrocyte Sedimentation Rate 18 mm/hr (0-20)
== END 2024-07-18 08:52 | disposition home or self-care (01) ==
PROVIDERS: PCP Family Medicine; Visit Provider Internal Medicine
DX: M06.032 Rheumatoid arthritis without rheumatoid factor, left wrist (principal); N18.30 Chronic kidney disease, stage 3 unspecified; Z79.899 Other long term (current) drug therapy
CPT/HCPCS: 36415; 80053; 81001; 82248; 85025; 85652; 86140

== ENCOUNTER 2025-02-15 00:40 | Day surgery (SDC) | payer MEDICARE, SELFPAY ==
--- OUTSIDE RECORDS SUMMARY | 2020-06-07 18:00 | XMS_ITS | Continuity of Care Document ---
Author Organization 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, [address], [id number], [phone] [facility] No Information 1 Jorge Martinez. [address] [place] [address], [facility], . tel: [phone] Referring Provider: Nolberto Luo [place], [place], [id number]. tel:[phone] Initial Hospital Care [facility], [address], [id number], tel:[phone] [facility] Acute kidney failure, unspecifiedBladder- neck obstructionEssentia l (primary) hypertensionMaligna nt neoplasm of colon, unspecifiedObstruct kourtney and reflux uropathy, unspecified 1 Jorge Martinez. [address] [place] [address], [address] [place] [address]. tel: [phone] Referring Provider: Nolberto Lu[place], [place], [id number]. tel:[phone] Family History Family Member Type Diagnosis Age At Onset No Information Payers Payer name Insurance type Covered democrat ID Authoriza tion(s) Medicare [place] Primary MB [id number] Social History Type Description Quantity Date Captured Comments Sex Male Smoking Status No Information Chief Complaint And Reason For Visit No Information History Of Present Illness Encounter Date Complaint History Of Prese nt Illness No Information Instructions Date Instruction Additional Infor mation No Information Assessments Type Assessment Date No Information
[2025-01-24 14:06] VITALS: BMI 22.4
--- NOTE | ~2025-02-15 | XR_ITS ---
EXAMINATION: XR_ENEMAB_CR DATE: 02/15/2025 13:22 INDICATION: Tortuous sigmoid colon TECHNIQUE: A program director scouting radiograph was obtained. A catheter was inserted into the patient's rectum. Contrast was infused by gravity. Patient requested that the study be altered due to discomfort prior to complete opacification of the descending colon. A total of 28 fluoroscopic spot images and 8 overhead co nventional radiographs were obtained. Fluoroscopy exposure time was 1.9 minutes. Total DAP was 34.916 mGycm^2. COMPARISON: None. FINDINGS: There are numerous diverticula along the descending and sigmoid colon. No masses identified along the contrast opacified descending and sigmoid colon. Lung bases are clear. Heart size normal. Median sternotomy wires and mediastinal surgical clips are seen, likely from prior coronary artery bypass grafting. Surgical clips at the right groin. Mild lumbar levoscoliosis with severe spondylosis. IMPRESSION: 1. Limited single contrast assessment of the descending and sigmoid colon with study terminated prior to complete opacification of the colon with gaseous distention at patient request due to discomfort which decreases sensitivity for identification of polyps or masses. 2. Descending and sigmoid colon diverticulosis. No masses or polyps identified. Reviewed, dictated and finalized at location A. T METAL FORMER IMPRESSION: 1. Limited single contrast assessment of the descending and sigmoid colon with study terminated prior to complete opacification of the colon with gaseous dist ention at patient request due to discomfort which decreases sensitivity for angelika ntification of polyps or masses. 2. Descending and sigmoid colon diverticulosis. No masses or polyps identified.
--- OUTSIDE RECORDS SUMMARY | 2025-02-15 00:44 | XMS_ITS | Encounter Summary ---
Author Organization [facility] Address [address] [place] [address] Care Team Providers Care Printing Supervisor Name Role Phone Jose D Stern MD Primary Care Provider Encounter Details Date Type Department Care Team (Late st Contact Info) Description 02/21/2006 Outpatient Historical [facility] Cardiovas and Thor Surg at [facility] [address] [facility] [address] [place] [address] Priscilla Alva MD [address] [facility] [address] [place] [address] Social History Tobacco Use Types Packs/Day Years Used Date Smoking Tobacco: Never Assessed Sex and Gender Information Value Date Recorded Sex Assigned at Not on file 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
--- OUTSIDE RECORDS SUMMARY | 2025-02-15 00:44 | XMS_ITS | Encounter Summary ---
Author Organization [employer] Address [address] [place] [address] Care Team Providers Care Lens Coating Technician Name Role Phone Jose D Stern MD Primary Care Provider [phone] Encounter Details Date Type Department Care Team (Late st Contact Info) Description 02/21/2006 Outpatient Historical [facility] Support [facility] ([facility]) [address] 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
--- OUTSIDE RECORDS SUMMARY | 2025-02-15 00:44 | XMS_ITS | Encounter Summary ---
Author Organization [employer] Address 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) Social History Tobacco Use Types Packs/Day Years Used Date Smoking Tobacco: Never Assessed Sex and Gender Information Value Date Recorded Sex Assigned at Not on file Legal Sex Male 5:07 AM [employer] Gender Identity Not on file Sexual Orientation Not on file documented as of this encounter Plan of Treatment Not on file documented as of this encounter Procedures Procedure Name Priority Date/Time Associated Diagnosis Comments POC GLUCOSE Routine 02/26/2006 11:45 AM [employer]ER POC GLUCOSE Routine 02/26/2006 7:26 AM [employer]CHANT [employer]ER CBC WITH DIFFERENTIAL Routine 02/26/2006 4:23 AM [employer]ER CBC WITH DIFFERENTIAL Routine 02/26/2006 4:23 AM [employer]ER BASIC METABOLIC PANEL Routine 02/26/2006 4:23 AM [employer]CHANT [employer]ER POC GLUCOSE Routine 02/25/2006 8:32 PM [employer]CHANT [employer]ER POC GLUCOSE Routine 02/25/2006 4:09 PM [employer]CHANT [employer]ER POC GLUCOSE Routine 02/25/2006 11:24 AM [employer]ER POC GLUCOSE Routine 02/25/2006 7:11 AM [employer]ER BASIC METABOLIC PANEL Routine 02/25/2006 4:25 AM [employer]ER POC GLUCOSE Routine 02/24/2006 9:11 PM [employer]CHANT [employer]ER POC GLUCOSE Routine 02/24/2006 4:43 PM [employer]ER POC GLUCOSE Routine 02/24/2006 11:54 AM [employer]CHANT [employer]ER POC GLUCOSE Routine 02/24/2006 7:37 AM [employer]ER CBC WITH DIFFERENTIAL Routine 02/24/2006 6:25 AM [employer]ER CBC WITH DIFFERENTIAL Routine 02/24/2006 6:25 AM [employer]ER BASIC METABOLIC PANEL Routine 02/24/2006 6:25 AM [employer] M[employer]ER POC GLUCOSE Routine 02/23/2006 9:04 PM [employer]ER POC GLUCOSE Routine 02/23/2006 4:25 PM [employer]CHANT [employer]ER POC GLUCOSE Routine 02/23/2006 12:33 PM [employer]CHANT [employer]ER POTASSIUM LEVEL Routine 02/23/2006 11:33 AM MERCHANT M[employer]ER MAGNESIUM LEVEL Routine 02/23/2006 11:33 AM [employer]CHANT [employer]ER POC, BLOOD GASES Routine 02/23/2006 7:13 AM [employer]ER POC, BLOOD GASES Routine 02/23/2006 5:28 AM [employer] PT AND APTT Routine 02/23/2006 4:15 AM [employer]CHANT [employer]ER CBC WITH DIFFERENTIAL Routine 02/23/2006 4:15 AM [employer]CHANT [employer]ER CBC WITH DIFFERENTIAL Routine 02/23/2006 4:15 AM [employer]ER MAGNESIUM LEVEL Routine 02/23/2006 4:15 AM [employer]ER COMPREHENSIVE METABOLIC PANEL Routine 02/23/2006 4:15 AM [employer]CHANT [employer]ER POC GLUCOSE Routine 02/23/2006 1:41 AM MERCHANT M[employer]ER CVR ONLY, CKMB/CK Routine 02/23/2006 1:4 0 AM [employer]ER POTASSIUM LEVEL Routine 02/23/2006 1:40 AM [employer]ER MAGNESIUM LEVEL Routine 02/23/2006 1:40 AM [employer]ER POC, BLOOD GASES Routine 02/23/2006 1:20 AM [employer]CHANT [employer]ER POC, BLOOD GASES Routine 02/22/2006 10:2 3 PM [employer]CHANT [employer] CK TOTAL, RELATIVE INDEX Routine 02/22/2006 10:23 PM [employer]CHANT [employer]ER CKMB W/REFLEX CK Routine 02/22/2006 10:2 3 PM [employer]ER TROPONIN (W/REFLEX CKMB/CK) Routine 02/22/2006 10:23 PM [employer]ER POTASSIUM LEVEL Routine 02/22/2006 10:23 PM [employer]ER MAGNESIUM LEVEL Routine 02/22/2006 10:23 PM [employer]CHANT [employer]ER POC, BLOOD GASES Routine 02/22/2006 5:51 PM MERCHANT M[employer]ER CVR ONLY, CKMB/CK Routine 02/22/2006 5:4 0 PM [employer] PT AND APTT Routine 02/22/2006 5:40 PM [employer]CHANT [employer]ER CBC WITH DIFFERENTIAL Routine 02/22/2006 5:40 PM [employer]CHANT [employer]ER CBC WITH DIFFERENTIAL Routine 02/22/2006 5:40 PM [employer]ER MAGNESIUM LEVEL Routine 02/22/2006 5:40 PM [employer]CHANT [employer]ER BASIC METABOLIC PANEL Routine 02/22/2006 5:40 PM [employer]ER POC, BLOOD GASES Routine 02/22/2006 5:19 PM [employer]ER POC, BLOOD GASES Routine 02/22/2006 4:50 PM [employer]ER POC, BLOOD GASES Routine 02/22/2006 4:29 PM [employer]ER POC, BLOOD GASES Routine 02/22/2006 4:09 PM [employer]ER POC, BLOOD GASES Routine 02/22/2006 3:44 PM [employer]ER POC, BLOOD GASES Routine 02/22/2006 3:21 PM [employer]ER POC, BLOOD GASES Routine 02/22/2006 3:17 PM [employer]CHANT M[employer]ER POC, BLOOD GASES Routine 02/22/2006 2:55 PM [employer]ER POC, BLOOD GASES Routine 02/22/2006 1:46 PM [employer] URINALYSIS WITH REFLEX CULTURE Routine 02/21/2006 6:41 PM [employer] URINALYSIS W/REFLEX MICROSCOPIC Routine 02/21/2006 6:41 PM [employer]CHANT [employer]ER CKMB W/REFLEX CK Routine 02/21/2006 5:25 PM [employer]CHANT [employer]ER TROPONIN (W/REFLEX CKMB/CK) Routine 02/21/2006 5:25 PM [employer]CHANT [employer] PT AND APTT Routine 02/21/2006 5:25 PM [employer]CHANT [employer]ER CBC WITH DIFFERENTIAL Routine 02/21/2006 5:25 PM [employer]CHANT [employer] CBC WITH DIFFERENTIAL Routine 02/21/2006 5:25 PM [employer]CHANT [employer]ER LIPID PANEL Routine 02/21/2006 5:25 PM [employer] COMPREHENSIVE METABOLIC PANEL Routine 02/21/2006 5:25 PM [employer]ER documented in this encounter Results * (ABNORMAL) POC GLUCOSE (02/26/2006 11:45 AM [employer]CHANT M[employer]ER) GLUCOSE POC 108(H) 65 - 99 mg/dL INTERFACE SYSTEM Comment: 01/27/2006 Change in reference range to correspond to Main Lab reference range. 02/26/2006 11:4 5 AM [employer]ER us Daniela Abad MD POINT OF CARE TESTING Final Result Performing Organization Address [facility] de Phone Number INTERFACE SYSTEM Refer to clinic/hospital department * (ABNORMAL) POC GLUCOSE (02/26/2006 7:26 AM MERCHANT MILLER) Pathologist [facility] GLUCOSE POC 114(H) 65 - 99 mg/dL INTERFACE SYSTEM Comment: 01/27/2006 Change in reference range to correspond to Main Lab reference range. 02/26/2006 7:26 AM [employer]ER us Daniela Abad MD POINT OF CARE TESTING Final Result Performing Organization Address [facility] Co de Phone Number INTERFACE SYSTEM Refer to clinic/hospital department * (ABNORMAL) CBC WITH DIFFERENTIAL (02/26/2006 4:23 AM MERCHANT M[employer]ER) NEUTROPHILS 59 45 - 70 % INTERFAC [...] 0.20 K/uL INTERFACE SYSTEM 02/26/2006 4:23 AM [employer] us Daniela Abad MD HEMATOLOGY ORDERABLES Final Result Performing Organization Address [facility] Phone Number INTERFACE SYSTEM Refer to clinic/hospital department * (ABNORMAL) CBC WITH DIFFERENTIAL (02/26/2006 4:23 AM [employer]CHANT M[employer]ER) WBC 12.5(H) 4.0 - 9.8 K/uL INTERFACE [...] 12.4 fL INTERFACE SYSTEM 02/26/2006 4:23 AM [employer]ER us Daniela Abad MD HEMATOLOGY ORDERABLES Final Result Performing Organization Address [facility] Phone Number INTERFACE SYSTEM Refer to clinic/hospital department * BASIC METABOLIC PANEL (02/26/2006 4:23 AM MERCHANT M[employer]ER) GLUCOSE 88 65 - 99 mg/dL INTERFACE [...] and non- Americans is available on the [facility] Intranet at: [email or web address] Select: Lab Policies and Procedures Select: Reference Ranges - GFR 02/26/2006 4:23 AM [employer]ER us Daniela Abad MD CHEMISTRY ORDERABLES Final R esult Performing Organization Address [facility] de Phone Number INTERFACE SYSTEM Refer to clinic/hospital department * (ABNORMAL) POC GLUCOSE (02/25/2006 8:32 PM MERCHANT MILLER) GLUCOSE POC 146(H) 65 - 99 mg/dL INTERFACE SYSTEM Comment: 01/27/2006 Change in reference range to correspond to Main Lab reference range. 02/25/2006 8:32 PM [employer]ER us Daniela Abad MD POINT OF CARE TESTING Final Result Performing Organization Address [facility] Phone Number INTERFACE SYSTEM Refer to clinic/hospital department * POC GLUCOSE (02/25/2006 4:09 PM MERCHANT MILLER) GLUCOSE POC 83 65 - 99 mg/dL INTERFACE SYSTEM Comment: 01/27/2006 Change in reference range to correspond to Main Lab reference range. 02/25/2006 4:09 PM [employer] us Daniela Abad MD POINT OF CARE TESTING Final Result Performing Organization Address [facility] de Phone Number INTERFACE SYSTEM Refer to clinic/hospital department * (ABNORMAL) POC GLUCOSE (02/25/2006 11:24 AM MERCHANT MILLER) GLUCOSE POC 131(H) 65 - 99 mg/dL INTERFACE SYSTEM Comment: 01/27/2006 Change in reference range to correspond to Main Lab reference range. 02/25/2006 11:2 4 AM MERCHANT M[employer]ER us Daniela Abad MD POINT OF CARE TESTING Final Result Performing Organization Address [facility] Phone Number INTERFACE SYSTEM Refer to clinic/hospital department * (ABNORMAL) POC GLUCOSE (02/25/2006 7:11 AM MERCHANT M[employer]ER) GLUCOSE POC 123(H) 65 - 99 mg/dL INTERFACE SYSTEM Comment: 01/27/2006 Change in reference range to correspond to Main Lab reference range. 02/25/2006 7:11 AM [employer]CHANT M[employer]ER us Daniela Abad MD POINT OF CARE TESTING Final Result Performing Organization Address [facility] Phone Number INTERFACE SYSTEM Refer to clinic/hospital department * (ABNORMAL) BASIC METABOLIC PANEL (02/25/2006 4:25 AM MERCHANT M[employer]ER) GLUCOSE 103(H) 65 - 99 mg/dL INTERFACE [...] and non- Americans is available on the [facility] Intranet at: [email or web address] Select: Lab Policies and Procedures Select: Reference Ranges - GFR 02/25/2006 4:25 AM MERCHANT MILLER Van WANG CHEMISTRY ORDERABLES Final Resul t Performing Organization Address [facility] de Phone Number INTERFACE SYSTEM Refer to clinic/hospital department * (ABNORMAL) POC GLUCOSE (02/24/2006 9:11 PM MERCHANT MILLER) GLUCOSE POC 174(H) 65 - 99 mg/dL INTERFACE SYSTEM Comment: 01/27/2006 Change in reference range to correspond to Main Lab reference range. 02/24/2006 9:11 PM [employer]CHANT M[employer]ER us Daniela Abad MD POINT OF CARE TESTING Final Result Performing Organization Address [facility] Phone Number INTERFACE SYSTEM Refer to clinic/hospital department * (ABNORMAL) POC GLUCOSE (02/24/2006 4:43 PM MERCHANT MILLER) GLUCOSE POC 128(H) 65 - 99 mg/dL INTERFACE SYSTEM Comment: 01/27/2006 Change in reference range to correspond to Main Lab reference range. 02/24/2006 4:43 PM MERCHANT M[employer]ER us Daniela Abad MD POINT OF CARE TESTING Final Result Performing Organization Address [facility] Phone Number INTERFACE SYSTEM Refer to clinic/hospital department * (ABNORMAL) POC GLUCOSE (02/24/2006 11:54 AM MERCHANT M[employer]ER) GLUCOSE POC 126(H) 65 - 99 mg/dL INTERFACE SYSTEM Comment: 01/27/2006 Change in reference range to correspond to Main Lab reference range. 02/24/2006 11:5 4 AM [employer] M[employer]ER us Daniela Abad MD POINT OF CARE TESTING Final Result Performing Organization Address [facility] Phone Number INTERFACE SYSTEM Refer to clinic/hospital department * (ABNORMAL) POC GLUCOSE (02/24/2006 7:37 AM MERCHANT M[employer]ER) COMMENT, GLU POC Notified RN INTERFACE SYSTEM GLUCOSE POC 135(H) 65 - 99 mg/dL INTERFACE SYSTEM Comment: 01/27/2006 Change in reference range to correspond to Main Lab reference range. 02/24/2006 7:37 AM [employer]CHANT M[employer]ER us Daniela Abad MD POINT OF CARE TESTING Final Result Performing Organization Address [facility] de Phone Number INTERFACE SYSTEM Refer to clinic/hospital department * (ABNORMAL) CBC WITH DIFFERENTIAL (02/24/2006 6:25 AM MERCHANT M[employer]ER) NEUTROPHILS 71(H) 45 - 70 % INTERFAC [...] 0.20 K/uL INTERFACE SYSTEM 02/24/2006 6:25 AM [employer]ER Daniela Abad MD HEMATOLOGY ORDERABLES Final Result Performing Organization Address [facility] de Phone Number INTERFACE SYSTEM Refer to clinic/hospital department * (ABNORMAL) CBC WITH DIFFERENTIAL (02/24/2006 6:25 AM MERCHANT MILLER) Pathologist [facility] WBC 15.2(H) 4.0 - 9.8 K/uL INTERFACE [...] 12.4 fL INTERFACE SYSTEM 02/24/2006 6:25 AM MER[employer] M[employer]ER us Daniela Abad MD HEMATOLOGY ORDERABLES Final Result Performing Organization Address [facility] Phone Number INTERFACE SYSTEM Refer to clinic/hospital department * (ABNORMAL) BASIC METABOLIC PANEL (02/24/2006 6:25 AM MERCHANT M[employer]ER) GLUCOSE 116(H) 65 - 99 mg/dL INTERFACE [...] and non- Americans is available on the [facility] Intranet at: [email or web address] Select: Lab Policies and Procedures Select: Reference Ranges - GFR CALCIUM 7.9(L) 8.4 - 10.2 mg/dL INTERFACE SYSTEM 02/24/2006 6:25 AM [employer]ER us Daniela Abad MD CHEMISTRY ORDERABLES Final R esult Performing Organization Address [facility] Phone Number INTERFACE SYSTEM Refer to clinic/hospital department * (ABNORMAL) POC GLUCOSE (02/23/2006 9:04 PM MERCHANT MILLER) COMMENT, GLU POC Notified RN INTERFACE SYSTEM GLUCOSE POC 137(H) 65 - 99 mg/dL INTERFACE SYSTEM Comment: 01/27/2006 Change in reference range to correspond to Main Lab reference range. 02/23/2006 9:04 PM [employer]ER us Daniela Abad MD POINT OF CARE TESTING Final Result Performing Organization Address [facility] Phone Number INTERFACE SYSTEM Refer to clinic/hospital department * (ABNORMAL) POC GLUCOSE (02/23/2006 4:25 PM MERCHANT MILLER) COMMENT, GLU POC Notified RN INTERFACE SYSTEM GLUCOSE POC 148(H) 65 - 99 mg/dL INTERFACE SYSTEM Comment: 01/27/2006 Change in reference range to correspond to Main Lab reference range. 02/23/2006 4:25 PM [employer]CHANT [employer]ER us Daniela Abad MD POINT OF CARE TESTING Final Result Performing Organization Address [facility] Phone Number INTERFACE SYSTEM Refer to clinic/hospital department * (ABNORMAL) POC GLUCOSE (02/23/2006 12:33 PM MERCHANT M[employer]ER) COMMENT, GLU POC Notified RN INTERFACE SYSTEM GLUCOSE POC 155(H) 65 - 99 mg/dL INTERFACE SYSTEM Comment: 01/27/2006 Change in reference range to correspond to Main Lab reference range. 02/23/2006 12:3 3 PM MERCHANT M[employer]ER Result Mojgan Abad MD POINT OF CARE TESTING Final Result Performing Organization Address [facility] Phone Number INTERFACE SYSTEM Refer to clinic/hospital department * POTASSIUM LEVEL (02/23/2006 11:33 AM MERCHANT MILLER) POTASSIUM 4.2 3.5 - 4.9 mmol/L INTERFACE SYSTEM 02/23/2006 11:3 3 AM [employer]CHANT M[employer]ER us Daniela Abad MD CHEMISTRY ORDERABLES Final R esult Performing Organization Address [facility] Phone Number INTERFACE SYSTEM Refer to clinic/hospital department * (ABNORMAL) MAGNESIUM LEVEL (02/23/2006 11:33 AM MERCHANT MILLER) MAGNESIUM 2.6(H) 1.5 - 2.5 mg/dL INTERFACE SYSTEM 02/23/2006 11:3 3 AM MERCHANT M[employer]ER Result Mojgan Abad MD CHEMISTRY ORDERABLES Final R esult Performing Organization Address [facility] de Phone Number INTERFACE SYSTEM Refer to clinic/hospital department * (ABNORMAL) POC RT, BLOOD GASES (02/23/2006 7:13 AM MERCHANT MILLER) PH ARTERIAL 7.37 7.35 - 7.45 INTERFACE [...] GASES POC MD AWARE INTERFACE SYSTEM 02/23/2006 7:13 AM MER[employer] M[employer]ER Daniela Abad MD CHEMISTRY ORDERABLES Final R esult Performing Organization Address [facility] Phone Number INTERFACE SYSTEM Refer to clinic/hospital department * (ABNORMAL) POC RT, BLOOD GASES (02/23/2006 5:28 AM MERCHANT MILLER) PH ARTERIAL 7.41 7.35 - 7.45 INTERFACE [...] POC 8 INTERFACE SYSTEM COMMENT, GASES POC AWARE INTERFACE SYSTEM 02/23/2006 5:28 AM [employer] M[employer]ER Daniela Abad MD CHEMISTRY ORDERABLES Final R esult Performing Organization Address [facility] Phone Number INTERFACE SYSTEM Refer to clinic/hospital department * MAGNESIUM LEVEL (02/23/2006 4:15 AM MERCHANT MILLER) MAGNESIUM 1.9 1.5 - 2.5 mg/dL INTERFACE SYSTEM 02/23/2006 4:15 AM MERCHANT M[employer]ER Priscilla Alva MD CHEMISTRY ORDERABLES Final Result Performing Organization Address [facility] INTERFACE SYSTEM Refer to clinic/hospital department * (ABNORMAL) CBC WITH DIFFERENTIAL (02/23/2006 4:15 AM MERCHANT MILLER) NEUTROPHIL ABSOLUTE 16.54(H) 1.90 - 7.00 K/uL [...] Normal INTER FACE SYSTEM 02/23/2006 4:15 AM [employer] M[employer]ER Priscilla Alva MD HEMATOLOGY ORDERABLES Matilde l Result Performing Organization Address [facility] Phone Number INTERFACE SYSTEM Refer to clinic/hospital department * (ABNORMAL) CBC WITH DIFFERENTIAL (02/23/2006 4:15 AM MERCHANT M[employer]ER) WBC 17.6(H) 4.0 - 9.8 K/uL INTERFACE [...] 12.4 fL INTERFACE SYSTEM 02/23/2006 4:15 AM [employer]ER Priscilla Alva MD HEMATOLOGY ORDERABLES Matilde mendenhall Result INTERFACE SYSTEM Refer to clinic/hospital department * (ABNORMAL) PT AND APTT (02/23/2006 4:15 AM MERCHANT MILLER) PROTIME 16.1(H) 12.7 - 15.1 Seconds INTERFACE SYSTEM INR 1.3(H) 0.9 - 1.1 INTERFACE SYSTEM Comment: INR Therapeutic Range: Adult: 2.0 - 3.0 for pulmonary embolism or prophylaxis against venous thrombosis or systemic embolization. 2.0 - 3.0 for patients with tissue heart valves. 2.5 - 3.5 for patients with mechanical heart valves or post IN. Pediatric (12 years and under): 1.5 - [...] range for unfractionated heparin 02/23/2006 4:15 AM MER[employer] M[employer]ER us Priscilla Alva MD HEMATOLOGY ORDERABLES Matilde mendenhall Result INTERFACE SYSTEM Refer to clinic/hospital department * (ABNORMAL) COMPREHENSIVE METABOLIC PANEL (02/23/2006 4:15 AM MERCHANT MILLER) GLUCOSE 133(H) 65 - 99 mg/dL INTERFACE [...] and non- Americans is available on the [facility] Intranet at: [email or web address] Select: Lab Policies and Procedures Select: Reference Ranges - GFR 02/23/2006 4:15 AM MER[employer] M[employer]ER Priscilla Alva MD CHEMISTRY ORDERABLES Final Result Performing Organization Address [facility] Phone Number INTERFACE SYSTEM Refer to clinic/hospital department * (ABNORMAL) POC GLUCOSE (02/23/2006 1:41 AM MERCHANT MILLER) Pathologist [facility] GLUCOSE POC 136(H) 65 - 99 mg/dL INTERFACE SYSTEM Comment: 01/27/2006 Change in reference range to correspond to Main Lab reference range. 02/23/2006 1:41 AM MER[employer] M[employer]ER Daniela Abad MD POINT OF CARE TESTING Final Result Performing Organization Address [facility] Phone Number INTERFACE SYSTEM Refer to clinic/hospital department * MAGNESIUM LEVEL (02/23/2006 1:40 AM MERCHANT MILLER) Pathologist [facility] MAGNESIUM 2.0 1.5 - 2.5 mg/dL INTERFACE SYSTEM 02/23/2006 1:40 AM [employer] M[employer]ER Priscilla Alva MD CHEMISTRY ORDERABLES Final Result Performing Organization Address [facility] Phone Number INTERFACE SYSTEM Refer to clinic/hospital department * (ABNORMAL) POTASSIUM LEVEL (02/23/2006 1:40 AM MERCHANT MILLER) Pathologist [facility] POTASSIUM 5.0(H) 3.5 - 4.9 mmol/L INTERFACE SYSTEM Comment:No significant hemol ysis 02/23/2006 1:40 AM [employer]CHANT M[employer]ER Priscilla Alva MD CHEMISTRY ORDERABLES Final Result Performing Organization Address [facility] Phone Number INTERFACE SYSTEM Refer to clinic/hospital department * (ABNORMAL) CVR ONLY, CKMB/CK (02/23/2006 1:40 AM MERCHANT MILLER) CKMB 19.2(AA) <=6.7 ng/mL INTERFACE SYSTEM Comment:Persistent abnormal result CKMB INTERP See Below INTERFAC E SYSTEM Comment:Elevated CKMB,Consis tent with Myocardial Injury CK 444(H) 10 - 170 U/L INTERFACE SYSTEM CARDIAC RELATIVE INDEX 4.3(H) <=4.0 INTERFACE SYSTEM 02/23/2006 1:40 AM MERCHANT M[employer]ER us Priscilla Alva MD CHEMISTRY ORDERABLES Final Result Performing Organization Address [facility] Phone Number INTERFACE SYSTEM Refer to clinic/hospital department * (ABNORMAL) POC RT, BLOOD GASES (02/23/2006 1:20 AM MERCHANT MILLER) PH ARTERIAL 7.27(L) 7.35 - 7.45 INTERFACE [...] MD AWARE INTERFACE SYSTEM 02/23/2006 1:20 AM [employer]CHANT M[employer]ER Daniela Abad MD CHEMISTRY ORDERABLES Final R esult Performing Organization Address [facility] Phone Number INTERFACE SYSTEM Refer to clinic/hospital department * (ABNORMAL) POC RT, BLOOD GASES (02/22/2006 10:23 PM MERCHANT MILLER) PH ARTERIAL 7.30(L) 7.35 - 7.45 INTERFACE [...] AWARE INTERFACE SYSTEM 02/22/2006 10:2 3 PM MERCHANT M[employer]ER Daniela Abad MD CHEMISTRY ORDERABLES Final R esult Performing Organization Address [facility] Phone Number INTERFACE SYSTEM Refer to clinic/hospital department * (ABNORMAL) CK TOTAL, RELATIVE INDEX (02/22/2006 10:23 PM MERCHANT MILLER) CK 420(H) 10 - 170 U/L INTERFACE SYSTEM CARDIAC RELATIVE INDEX 5.2(H) <=4.0 INTERFACE SYSTEM 02/22/2006 10:2 3 PM [employer]CHANT M[employer]ER Priscilla Alva MD CHEMISTRY ORDERABLES Final Result Performing Organization Address [facility] Phone Number INTERFACE SYSTEM Refer to clinic/hospital department * (ABNORMAL) CKMB W/REFLEX CK (02/22/2006 10:23 PM MERCHANT MILLER) CKMB 21.8(AA) <=6.7 ng/mL INTERFACE SYSTEM Comment:Persistent abnormal result CKMB INTERP See Below INTERFAC E SYSTEM Comment:Elevated CKMB,Consis tent with Myocardial Injury 02/22/2006 10:2 3 PM [employer]CHANT M[employer]ER Priscilla Alva MD CHEMISTRY ORDERABLES Final Result Performing Organization Address [facility] Phone Number INTERFACE SYSTEM Refer to clinic/hospital department * (ABNORMAL) TROPONIN (W/REFLEX CKMB/CK) (02/22/2006 10:23 PM MERCHANT MILLER) TROPONIN T 1.14(AA) <=0.03 ng/mL INTERFACE SYSTEM Comment:Results called to an toni at 02/22/2006 11:24 PM and read back verified. TROPONIN T INTERP See Below INTERFACE SYSTEM Comment:Elevated Troponin-T, Consistent with Myocardial Injury 02/22/2006 10:2 3 PM MERCHANT M[employer]ER us Priscilla Alva MD CHEMISTRY ORDERABLES Final Result Performing Organization Address [facility] Phone Number INTERFACE SYSTEM Refer to clinic/hospital department * MAGNESIUM LEVEL (02/22/2006 10:23 PM MERCHANT MILLER) [facility] MAGNESIUM 2.1 1.5 - 2.5 mg/dL INTERFACE SYSTEM 02/22/2006 10:2 3 PM MERCHANT M[employer]ER Priscilla Alva MD CHEMISTRY ORDERABLES Final Result Performing Organization Address [facility] Phone Number INTERFACE SYSTEM Refer to clinic/hospital department * POTASSIUM LEVEL (02/22/2006 10:23 PM MERCHANT MILLER) Pathologist [facility] POTASSIUM 4.6 3.5 - 4.9 mmol/L INTERFACE SYSTEM 02/22/2006 10:2 3 PM [employer]CHANT M[employer]ER us Priscilla Alva MD CHEMISTRY ORDERABLES Final Result Performing Organization Address [facility] Phone Number INTERFACE SYSTEM Refer to clinic/hospital department * (ABNORMAL) POC RT, BLOOD GASES (02/22/2006 5:51 PM MERCHANT MILLER) Pathologist [facility] PH ARTERIAL 7.41 7.35 - 7.45 INTERFACE [...] RN NOTIFIED INTERFACE SYSTEM 02/22/2006 5:51 PM [employer]CHANT M[employer]ER Daniela Abad MD CHEMISTRY ORDERABLES Final R esult Performing Organization Address [facility] de Phone Number INTERFACE SYSTEM Refer to clinic/hospital department * (ABNORMAL) CVR ONLY, CKMB/CK (02/22/2006 5:40 PM MERCHANT MILLER) Pathologist [facility] CKMB 18.2(AA) <=6.7 ng/mL INTERFACE SYSTEM Comment:Results called to tr acmauro at 02/22/2006 7:46 PM and read back verified. CKMB INTERP See Below INTERFAC E SYSTEM Comment:Elevated CKMB,Consis tent with Myocardial Injury. CK 219(H) 10 - 170 U/L INTERFACE SYSTEM CARDIAC RELATIVE INDEX 8.3(H) <=4.0 INTERFACE SYSTEM 02/22/2006 5:40 PM MERCHANT M[employer]ER Priscilla Alva MD CHEMISTRY ORDERABLES Final Result Performing Organization Address [facility] Phone Number INTERFACE SYSTEM Refer to clinic/hospital department * (ABNORMAL) CBC WITH DIFFERENTIAL (02/22/2006 5:40 PM MERCHANT MILLER) NEUTROPHILS 75(H) 45 - 70 % INTERFAC [...] 0.20 K/uL INTERFACE SYSTEM 02/22/2006 5:40 PM [employer] Priscilla Alva MD HEMATOLOGY ORDERABLES Matilde l Result Performing Organization Address [facility] Phone Number INTERFACE SYSTEM Refer to clinic/hospital department * (ABNORMAL) CBC WITH DIFFERENTIAL (02/22/2006 5:40 PM [employer]CHANT M[employer]ER) WBC 20.0(H) 4.0 - 9.8 K/uL INTERFACE [...] 12.4 fL INTERFACE SYSTEM 02/22/2006 5:40 PM [employer] Priscilla Alva MD HEMATOLOGY ORDERABLES Matilde l Result Performing Organization Address [facility] Phone Number INTERFACE SYSTEM Refer to clinic/hospital department * (ABNORMAL) PT AND APTT (02/22/2006 5:40 PM [employer]CHANT [employer]) PROTIME 17.9(H) 12.7 - 15.1 Seconds INTERFACE SYSTEM INR 1.4(H) 0.9 - 1.1 INTERFACE SYSTEM Comment: INR Therapeutic Range: Adult: 2.0 - 3.0 for pulmonary embolism or prophylaxis against venous thrombosis or systemic embolization. 2.0 - 3.0 for patients with tissue heart valves. 2.5 - 3.5 for patients with mechanical heart valves or post IN. Pediatric (12 years and under): 1.5 - [...] range for unfractionated heparin 02/22/2006 5:40 PM [employer] Priscilla Alva MD HEMATOLOGY ORDERABLES Matilde l Result Performing Organization Address [facility] Phone Number INTERFACE SYSTEM Refer to clinic/hospital department * (ABNORMAL) MAGNESIUM LEVEL (02/22/2006 5:40 PM [employer]CHANT M[employer]ER) MAGNESIUM 2.7(H) 1.5 - 2.5 mg/dL INTERFACE SYSTEM 02/22/2006 5:40 PM [employer]ER Priscilla Alva MD CHEMISTRY ORDERABLES Final Result Performing Organization Address [facility] Phone Number INTERFACE SYSTEM Refer to clinic/hospital department * (ABNORMAL) BASIC METABOLIC PANEL (02/22/2006 5:40 PM [employer]CHANT [employer]ER) GLUCOSE 101(H) 65 - 99 mg/dL INTERFACE [...] and non- Americans is available on the [facility] Intranet at: [email or web address] Select: Lab Policies and Procedures Select: Reference Ranges - GFR 02/22/2006 5:40 PM MERCHANT [employer] us Priscilla Alva MD CHEMISTRY ORDERABLES Final Result Performing Organization Address [facility] Co de Phone Number INTERFACE SYSTEM Refer to clinic/hospital department * (ABNORMAL) POC RT, BLOOD GASES (02/22/2006 5:19 PM [employer]CHANT M[employer]ER) PH ARTERIAL 7.40 7.35 - 7.45 INTERF [...] 109 mg/dL INTERFACE SYSTEM 02/22/2006 5:19 PM [employer]CHANT [employer] us Daniela Abad MD CHEMISTRY ORDERABLES Final R esult Performing Organization Address [facility]/ZIP Co de Phone Number INTERFACE SYSTEM Refer to clinic/hospital department * (ABNORMAL) POC RT, BLOOD GASES (02/22/2006 4:50 PM [employer]CHANT MILLER) PH ARTERIAL 7.42 7.35 - 7.45 INTERFACE [...] 109 mg/dL INTERFACE SYSTEM 02/22/2006 4:50 PM [employer]ER us Daniela Abad MD CHEMISTRY ORDERABLES Final R esult INTERFACE SYSTEM Refer to clinic/hospital department * (ABNORMAL) POC RT, BLOOD GASES (02/22/2006 4:29 PM MERCHANT MILLER) PH ARTERIAL 7.50(H) 7.35 - 7.45 INTERFACE [...] 109 mg/dL INTERFACE SYSTEM 02/22/2006 4:29 PM [employer]ER Daniela Abad MD CHEMISTRY ORDERABLES Final R esult Performing Organization Address [facility] Co de Phone Number INTERFACE SYSTEM Refer to clinic/hospital department * (ABNORMAL) POC RT, BLOOD GASES (02/22/2006 4:09 PM [employer]CHANT M[employer]ER) PH ARTERIAL 7.48(H) 7.35 - 7.45 INTERFACE [...] 109 mg/dL INTERFACE SYSTEM 02/22/2006 4:09 PM [employer]ER Daniela Abad MD CHEMISTRY ORDERABLES Final R esult Performing Organization Address [place]/[facility]/ZIP Co de Phone Number INTERFACE SYSTEM Refer to clinic/hospital department * (ABNORMAL) POC RT, BLOOD GASES (02/22/2006 3:44 PM [employer]CHANT M[employer]ER) PH ARTERIAL 7.44 7.35 - 7.45 INTERFACE [...] 109 mg/dL INTERFACE SYSTEM 02/22/2006 3:44 PM [employer] us Daniela Abad MD CHEMISTRY ORDERABLES Final R esult INTERFACE SYSTEM Refer to clinic/hospital department * (ABNORMAL) POC RT, BLOOD GASES (02/22/2006 3:21 PM [employer]CHANT M[employer]ER) PH ARTERIAL 7.39 7.35 - 7.45 INTERFACE [...] 109 mg/dL INTERFACE SYSTEM 02/22/2006 3:21 PM [employer]ER us Daniela Abad MD CHEMISTRY ORDERABLES Final R esult INTERFACE SYSTEM Refer to clinic/hospital department * (ABNORMAL) POC RT, BLOOD GASES (02/22/2006 3:17 PM [employer]CHANT MILLER) PH MVBG 7.37 7.32 - 7.43 INTERFACE [...] 109 mg/dL INTERFACE SYSTEM 02/22/2006 3:17 PM [employer] Daniela Abad MD CHEMISTRY ORDERABLES Final R esult INTERFACE SYSTEM Refer to clinic/hospital department * (ABNORMAL) POC RT, BLOOD GASES (02/22/2006 2:55 PM [employer]CHANT M[employer]ER) PH ARTERIAL 7.38 7.35 - 7.45 INTERFACE [...] 109 mg/dL INTERFACE SYSTEM 02/22/2006 2:55 PM [employer]ER Daniela Abad MD CHEMISTRY ORDERABLES Final R esult INTERFACE SYSTEM Refer to clinic/hospital department * (ABNORMAL) POC RT, BLOOD GASES (02/22/2006 1:46 PM MERCHANT MILLER) PH ARTERIAL 7.40 7.35 - 7.45 INTERFACE [...] 109 mg/dL INTERFACE SYSTEM 02/22/2006 1:46 PM [employer]ER Daniela Abad MD CHEMISTRY ORDERABLES Final R esult Performing Organization Address [facility] de Phone Number INTERFACE SYSTEM Refer to clinic/hospital department * URINALYSIS (02/21/2006 6:41 PM [employer]CHANT M[employer]ER) COLOR UA Pale Yellow INTERFAC E SYSTEM [...] Negative Negative INTERFACE SYSTEM 02/21/2006 6:41 PM [employer]ER Nilson Forte MD URINE ORDERABLES Final Result Performing Organization Address [facility] Phone Number INTERFACE SYSTEM Refer to clinic/hospital department * URINALYSIS WITH REFLEX CULTURE (02/21/2006 6:41 PM MERCHANT [employer]ER) URINE CULTURE ORDER Not indicated INTERFACE SYSTEM Comment: Criteria for a reflex culture include one or more of the following: Abn ormal nitrite, leukocyte esterase, WBCs or RBCs. Lack of qualifying criteria does not exclude the possiblity of a urinary tract infection. Dilute urine, drug interference, etc. may decrease the sensitivity of the criteria analytes. 02/21/2006 6:41 PM [employer]ER Nilson Forte MD URINE ORDERABLES Final Result Performing Organization Address [facility] Phone Number INTERFACE SYSTEM Refer to clinic/hospital department * (ABNORMAL) LIPID PANEL (02/21/2006 5:25 PM MERCHANT M[employer]ER) CHOLESTEROL 287(H) 100 - 199 mg/dL INTERFACE SYSTEM TRIGLYCERIDE 212(H) 10 - 149 mg/dL INTERFACE SYSTEM HDL 46 40 - 59 mg/dL INTERFACE SYSTEM CHOL/HDL RATIO 6.2(H) 2.0 - 5.0 INTER FACE SYSTEM LDL CALCULATED 199(H) <=99 mg/dL INTERFACE SYSTEM LIPID PANEL COMMENT See Below INTERFACE SYSTEM Comment: The adult ATP and pediatric NCEP classifications for lipids are available on the [facility] Intranet at: [email or web address] Select: Lab Policies and Procedures Select: Reference Ranges - Lipids 02/21/2006 5:25 PM [employer]ER Andrea Gilbert CHEMISTRY ORDERABLES Final Resul t Performing Organization Address [facility] Number INTERFACE SYSTEM Refer to clinic/hospital department * CKMB W/REFLEX CK (02/21/2006 5:25 PM MERCHANT MILLER) CKMB 4.0 <=6.7 ng/mL INTERFACE SYSTEM CKMB INTERP Negative INTERFAC E SYSTEM 02/21/2006 5:25 PM [employer]ER Andrea Gilbert CHEMISTRY ORDERABLES Final Resul t Performing Organization Address [facility] Phone Number INTERFACE SYSTEM Refer to clinic/hospital department * (ABNORMAL) TROPONIN (W/REFLEX CKMB/CK) (02/21/2006 5:25 PM MERCHANT MILLER) TROPONIN T 0.17(AA) <=0.03 ng/mL INTERFACE SYSTEM Comment:Results called to te rra at 02/21/2006 6:12 PM and read back verified. TROPONIN T INTERP See Below INTERFACE SYSTEM Comment:Elevated Troponin-T, Consistent with Myocardial Injury 02/21/2006 5:25 PM [employer] Andrea Gilbert CHEMISTRY ORDERABLES Final Resul t Performing Organization Address [place]/[facility] de Phone Number INTERFACE SYSTEM Refer to clinic/hospital department * CBC WITH DIFFERENTIAL (02/21/2006 5:25 PM MERCHANT MILLER) NEUTROPHILS 60 45 - 70 % INTERFAC [...] 0.20 K/uL INTERFACE SYSTEM 02/21/2006 5:25 PM [employer] Daniela Abad MD HEMATOLOGY ORDERABLES Final Result Performing Organization Address [facility] Phone Number INTERFACE SYSTEM Refer to clinic/hospital department * (ABNORMAL) CBC WITH DIFFERENTIAL (02/21/2006 5:25 PM MERCHANT [employer]ER) WBC 10.5(H) 4.0 - 9.8 K/uL INTERFACE [...] 12.4 fL INTERFACE SYSTEM 02/21/2006 5:25 PM [employer] us Daniela Abad MD HEMATOLOGY ORDERABLES Final Result Performing Organization Address [place]/[facility]/ZIP Co de Phone Number INTERFACE SYSTEM Refer to clinic/hospital department * (ABNORMAL) COMPREHENSIVE METABOLIC PANEL (02/21/2006 5:25 PM MERCHANT M[employer]ER) GLUCOSE 85 65 - 99 mg/dL INTERFACE [...] and non- Americans is available on the [facility] Intranet at: [email or web address] Select: Lab Policies and Procedures Select: Reference Ranges - GFR 02/21/2006 5:25 PM [employer] us Daniela Abad MD CHEMISTRY ORDERABLES Final R esult Performing Organization Address [place]/[facility]/ZIP Co de Phone Number INTERFACE SYSTEM Refer to clinic/hospital department * (ABNORMAL) PT AND APTT (02/21/2006 5:25 PM MERCHANT MILLER) PTT 37.6(H) 24.4 - 36.4 Seconds INTERFACE [...] patients with mechanical heart valves or post IN. Pediatric (12 years and under): 1.5 - 3.0 Although the target range in children is not well established , INR values of 1.5 - 3.0 are recommended for most patients. Higher values have been used in children with prosthetic cardiac valves and hereditary clotting disorders. (<3 days) therapeutic ranges have not been established. 02/21/2006 5:25 PM [employer]CHANT [employer]ER us Daniela Abad MD HEMATOLOGY ORDERABLES Final Result INTERFACE SYSTEM Refer to clinic/hospital department documented in this encounter Visit Diagnoses Diagnosis Coronary atherosclerosis of [place] coronary artery- Primary documented in this encounter Care Teams Media Services Director Relationship Specialty Start Date End Date Jose D Stern MD [address] [place] [address] PCP - General 02/21/06 documented as of this encounter
--- OUTSIDE RECORDS SUMMARY | 2025-02-15 00:44 | XMS_ITS | Clinical Summary ---
Author Organization [facility] lin Address [address] [place] [address] Care Team Providers Care Technical Sales Associate Name Role Phone Unavailable Primary Care Provider Unavailabl e Allergies No known active allergies Medications aspirin 81 MG tablet Take 81 mg by mouth. 09/21/2011 Active diltiazem (CARDIZEM) 30 MG tablet Take 30 mg by mouth. 08/23/2018 Active isosorbide mononitrate (IMDUR) 60 MG 24 hr tablet Take 60 mg by mouth. 06/08/2021 Active metoprolol (LOPRESSOR) 25 MG tablet Take 12.5 mg by mouth. 08/26/2021 Active nitroglycerin (NITROSTAT) 0.[address] 0.4 mg under the tongue. 07/08/2021 Active predniSONE (DELTASONE) 5 MG tablet Take 10 mg by mouth. 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 Social History Tobacco Use Types Packs/Day Years Used Date Smoking Tobacco: Never Assessed Sex and Gender Information Value Date Recorded Sex Assigned at Not on file Legal Sex Male 3:12 PM EDT Gender Identity Not on file Sexual Orientation Not on file Last Filed Vital Signs Vital Sign Reading Time Taken Comments Blood Pressure - - Pulse - - Temperature - - Respiratory Rate - - Oxygen Saturation - - Inhaled Oxygen Concentration - - Weight 68 kg (150 lb) 09/16/2021 1:16 PM PDT Height 182.9 cm (6') 09/16/2021 1:16 PM PDT Body Mass Index 20.34 09/16/2021 1:16 PM PDT Plan of Treatment Not on file Medical Devices Not on file Insurance MEDICARE [facility]
--- OUTSIDE RECORDS SUMMARY | 2025-02-15 00:44 | XMS_ITS | Encounter Summary ---
Author Organization [facility] Address [address] [place] [address] Care Team Providers Care Railroad Design Consultant Name Role Phone Jose D Stern MD Primary Care Provider [phone] Encounter Details Date Type Department Care Team (Late st Contact Info) Description 02/22/2006 Outpatient Historical [facility] Cardiovas and Thor Surg at [facility] 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
--- OUTSIDE RECORDS SUMMARY | 2025-02-15 00:44 | XMS_ITS | Clinical Summary ---
Author Organization [facility] Address [address] [place] [address] Care Team Providers Care Lawyer Probate Name Role Phone Heriberto Aleman MD Unavailable [phone] Óscar Gutierrez MD Unavailable [phone] Laurita Martinez MD Unavailable [phone] David Parikh MD Primary Care Provider [phone] Allergies No known active allergies Medications aspirin [...] 90 tablet 3 03/26/2024 03/26/19 26 Active leflunomide (ARAVA) 20 mg tablet Take 1 tablet (20 mg total) by mouth daily 06/14/2024 Active donepeziL (ARICEPT) 5 mg tabletIndicatio ns:vascular dementia Take 1 tablet (5 mg total) by mouth nightly 30 tablet 11 11/27/2024 11/28/19 26 Active Active Problems Problem Noted Date Diagnosed Date Moderate late onset Alzheime r's dementia without behavioral disturbance, psychotic disturbance, mood disturbance, or anxiety 12/24/2024 Smoker 11/27/2024 Renal insufficiency 11/27/2024 Leukocytosis 11/27/2024 GERD (gastroesophageal reflux disease) Facial weakness 11/27/2024 ESR raised 11/27/2024 Elevated serum creatinine 11/27/2024 Diverticulitis of colon with perforation 025 Chronic kidney disease, stage 2 (mild) 5 Altered mental status 11/27/2024 Encounter for Medicare annual wellness exam 07/13 [...] 04/26/2023 Assessment & Plan (04/26/2023 1:44 PM CASTING MACHINE OPERATOR AUTOMATIC): Refer to plastic surgery. Given Dr. Wolf's name in [place]. Colon cancer screening 08/04/2022 Assessment & Plan [...] a good question to run by the black leather trimmer Imdur was refilled yesterday, hopefully will be there waiting at the pharmacy Coronary artery disease of n ative artery of [place] heart with stable angina pectoris 11/24/2016 S/P CABG (coronary artery bypass graft) 11/25/19 Chronic rheumatic arthritis 07/17/2015 Overview (06/17/2016): RHEUMATOID ARTHRITIS Assessment & Plan (05/21/2021 7:56 AM CASTING MACHINE OPERATOR AUTOMATIC): Chronic, stable on remicade q 6 week infusions. Continue to monitor. Labs today. Assessment & Plan (02/19/2021 9:12 AM CASTING MACHINE OPERATOR AUTOMATIC): Chronic, stable on remicade. Last infusion on [...] additional records from recent hospital stay at [facility] Keep appointment with [facility] neurologist (09/17) and [facility] cardiothoracic surgeon (09/09) BP is [...] 08/16/2021 04/26/2023 Referral of patient 05/21/2021 04/26/19 Assessment & Plan (05/21/2021 10:19 AM CASTING MACHINE OPERATOR AUTOMATIC): Referral form for [facility] medical [facility] provided. Encounter for long-term (cur rent) use of high-risk medication 02/18/2021 04/26/2023 Assessment & Plan (05/21/2021 7:57 AM CASTING MACHINE OPERATOR AUTOMATIC): Long-term use of high-risk medication requiring regular monitoring. Labs re-ordered as he has not had them drawn from his February 2021 visit. No s/s of med tox or infection. Encouraged to work with PCP to make sure all recommended cancer screens and vaccinations are complete. Avoid live-vaccines unless reviewed with grain and yeast plants supervisor first. Assessment & Plan (02/18/2021 9:33 PM CASTING MACHINE OPERATOR AUTOMATIC): Long-term use of high-risk medication requiring regular monitoring. Labs ordered, no s/s of med tox or infection. Encouraged to work with PCP to make sure all recommended cancer screens and vaccinations are complete. Avoid live-vaccines unless reviewed with grain and yeast plants supervisor first. BMI 22.0-22.9, adult 02/11/2017 024 Tobacco use 08/02/2016 04/26/2023 Overview (08/06/2016): Tobacco abuse Upper respiratory tract infection 03/16/2013 04/26/2023 Overview (06/17/2016): URI (upper respiratory infection) Drug indicated 03/16/2013 04/26/2023 Overview (06/17/2016): LONG-TERM USE MEDS NEC Abdominal pain 07/25/2012 04/26/2023 Overview (06/17/2016): Abdominal pain Encounters Date Type Department Care Team Description 01/28/2025 8:55 AM CASTING MACHINE OPERATOR AUTOMATIC - 01/28/2025 11:59 PM CASTING MACHINE OPERATOR AUTOMATIC Hospital Encounter [address] [address] James Barrow, RN Rheumatoid 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 factor (HCC) (Primary Dx) Discharge Disposition: Discharge to home or self care 01/02/2025 Telephone [facility] Primary Care at [address] [address] Georgiana Hernandez MA 01/02/2025 Orders Only [facility] Primary Care at [address] [address] David Parikh MD Moderate late onset Alzheimer's dementia without behavioral disturbance, psychotic disturbance, mood disturbance, or anxiety (Primary Dx); History of cardioembolic cerebrovascular accident (CVA) 12/28/2024 Telephone [facility] Primary Care at [address] [address] David Parikh MD Referral Request 12/24/2024 2:30 PM CDT Office Visit [facility] at [address] [address] David Parikh MD Moderate late onset Alzheimer's dementia without behavioral disturbance, psychotic disturbance, mood disturbance, or anxiety (Primary Dx); Need for vaccination 12/10/2024 Telephone [facility] Primary Care at [address] [address] David Parikh MD Insurance Referrals 12/03/2024 8:56 AM CDT - 12/03/2024 11:59 PM CDT Hospital Encounter [facility] [address] [place] [address] Racheal Wallace RN Rheumatoid 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 factor (HCC) (Primary Dx) Discharge Disposition: Discharge to home or self care 12/03/2024 Telephone [facility] Primary Care at [address] [address] David Parikh MD Jury Duty letter and GI referral 11/27/2024 2:30 PM CDT Office Visit [facility] Primary [facility] at [address] [address] David Parikh MD Memory loss or impairment (Primary Dx) 11/16/2024 3:30 PM CDT Office Visit [facility] Cardiology [address] [place] [address] Heriberto Aleman MD Coronary artery disease of [place] artery of [place] heart with stable angina pectoris (Primary Dx); S/P CABG (coronary artery bypass graft); Status post aortic valve repair; Status post patent foramen ovale closure from Last 3 Months Immunizations Immunization Administration [...] High D ose, Split, Preservative Free, Intramuscular 12/24/2024,02/13/2024,02/15/2018,12/01 Influenza, Trivalent, IM (MDV) 12/26/2016,2014,12/21/2010 Influenza, Trivalent, Preser vative Free, Intramuscular 02/22/2015 Influenza, Trivalent, Split, Preservative Free, Intradermal 12/12/2014,12/12/2013,12/23/2011 Influenza, Unspecified 02/13/2021,12/04/2015 Pneumococcal Conjugate PCV 13 09/03/2021 Pneumococcal Conjugate Pcv20 02/08/2023 Pneumococcal Polysaccharide PPV23 12/21/2010 Surgical History Surgery Date Site/Laterality Comments CORONARY ARTERY BYPASS GRAFT 03/14/2005 - 03/13/2006 Coronary Artery Bypass Graft CORONARY ARTERY BYPASS GRAFT 03/14/2005 - 03/13/2006 CABG COLONOSCOPY 03/14/2018 - 03/13/2019 Dr. Woodall COLONOSCOPY 10/21/2022 PORT PLACEMENT CHEST >5 YEARS 08/25/2021 N/A Medical History Medical History Date Comments Cardiovascular disease 2005 Coronary Artery Disease Hyperlipidemia hyperlipidemia Rheumatoid arthritis (HCC) Rheum atoid arthritis Hx Other Medical tobacco use Heart disease PFO (patent foramen ovale) 12/08/2021 Acute and subacute infective endocarditis 2021 Rheumatoid arthritis of mult iple sites without rheumatoid factor (HCC) 07/17/2015 RHEUMATOID ARTHRITIS Chronic rheumatic arthritis 07/17/2015 RHEU MATOID ARTHRITIS Family History Medical History Relation Name Comments Brain cancer Brother Cancer -brain t umor; Other Father Unknown; Cause of : Unknown Colon cancer Mother Cancer -colon; Diabetes Mother Diabetes mellit ; Cause of : Diabetes mellitus Other Sister 2 Alive and well; Relation Name Status Comments Brother Father (Age 67) Mother Sister 1 Alive Sister 2 Social History Tobacco Use Types Packs/Day Years Used Date Smoking Tobacco: Former Cigarettes 0.3 60.9 S tarted: 1965 Passive Smoke Exposure: Past Smokeless Tobacco: Never Tobacco Cessation:Counseling Given: Not Answered Alcohol Use Standard Drinks/Week Comments No 0 [...] points, staff should administer the PHQ-9) 0 12/24/2024 Personal Safety Answer Date Recorded Have you ever been in or are you currently in a harmful physical or emotional relationship or is someone making you feel afraid or unsafe? Denies 10/21/2022 Sex and Gender Information Value Date Recorded Sex Assigned at Not on file Legal Sex Male 3:24 PM CASTING MACHINE OPERATOR AUTOMATIC Gender Identity Not on file Sexual Orientation Not on file Last Filed Vital Signs Vital Sign Reading Time Taken Comments Blood Pressure 110/63 01/28/2025 11:45 AM CASTING MACHINE OPERATOR AUTOMATIC Pulse 72 01/28/2025 11:45 AM CASTING MACHINE OPERATOR AUTOMATIC Temperature 36.4 C (97.6 F) 01/28/2025 11:45 AM CASTING MACHINE OPERATOR AUTOMATIC Respiratory Rate 16 01/28/2025 8:55 AM CASTING MACHINE OPERATOR AUTOMATIC Oxygen Saturation 100% 01/28/2025 11:45 AM CASTING MACHINE OPERATOR AUTOMATIC Inhaled Oxygen Concentration - - Weight 70.9 kg (156 lb 6.4 oz) 01/28/2025 8:55 A M CASTING MACHINE OPERATOR AUTOMATIC Height 185.4 cm (6' 1) 12/24/2024 2:33 PM CDT Body Mass Index 20.63 12/24/2024 2:33 PM CDT Plan of Treatment Health Maintenance Due Date Last Done Comments Hepatitis B Screening 01/19/1970 DTaP/Tdap/Td Vaccine (1 - Tdap) 08/13/2025 Postponed from 01/19/1963 (Patient declined, but will receive in the future) Well Visit 65+ 08/13/2025 08/13/2024, 07/13, 08/04/2022 Zoster Vaccine (1 of 2) 08/27/2025 Post poned from 01/19/1971 (Insurance / Financial) Depression Screening 12/24/2025 12/24/2024, 11/27/2024, 08/13/2024, Additional history exists Fall Risk Assessment 12/24/2025 12/24/2024, 08/13/2024, 08/09/2023, Additional history exists Colon Cancer Screening-Colonoscopy 10/21/2032 10/21/2022, 10/21/2022 Hepatitis C Screening Completed 09/03/2021 Abdominal Aortic Aneurysm (AAA) Screen Completed 09/22/2021, 08/19/2021 Colon Cancer Screening-CT Colonography Discontinued 12/01/2022, 10/21/2022, 10/21/2022 Colon Cancer Screening-DNA Stool Discontinued 12/01/2022, 10/21/2022, 10/21/2022 Colon Cancer Screening-FIT Discontinued 12/01, 10/21/2022, 10/21/2022 Colon Cancer Screening-Sigmoidoscopy Discontinued 12/01/2022, 10/21/2022, 10/21/2022 Pneumococcal vaccine 65+ Completed 023, 09/03/2021, 12/21/2010 Prostate Cancer Screening-PSA Discontinued 08/13/2024, 08/09/2023, 07/01/2022 Influenza Vaccine Completed 12/24/2024, , 02/08/2023, Additional history exists Procedures Procedure Name Priority Date/Time Associated Diagnosis Comments EGFR Routine 01/28/2025 9:05 AM CASTING MACHINE OPERATOR AUTOMATIC Rheumatoid 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 factor (HCC) DIFFERENTIAL AUTO Routine 01/28/2025 9:0 5 AM CASTING MACHINE OPERATOR AUTOMATIC Rheumatoid 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 factor (HCC) ERYTHROCYTE SEDIMENTATION RATE Routine 01/28/2025 9:05 AM CASTING MACHINE OPERATOR AUTOMATIC Rheumatoid 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 factor (HCC) CBC WITH AUTO DIFFERENTIAL Routine 01/28/2025 9:05 AM CASTING MACHINE OPERATOR AUTOMATIC Rheumatoid 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 factor (HCC) COMPREHENSIVE METABOLIC PANEL Routine 01/28/2025 9:05 AM CASTING MACHINE OPERATOR AUTOMATIC Rheumatoid 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 factor (HCC) PSA SCREEN Routine 08/13/2024 6:32 PM CDT Screening PSA (prostate specific antigen) [...] Recently Relevant to Health Maintenance Results * eGFR (01/28/2025 9:05 AM CASTING MACHINE OPERATOR AUTOMATIC) Pathologist [facility] eGFR 63 >=60 mL/min/1. 73 m2 Comment: Interpretive Data [...] interpretive data was last reviewed 2021. Blood 01/28/2025 9:05 AM CASTING MACHINE OPERATOR AUTOMATIC 01/28/2025 9:09 AM CASTING MACHINE OPERATOR AUTOMATIC us Óscra Gutierrez MD LAB BLOOD ORDERABLES Final Res ult [facility] [address] [facility] Department [place] [address] * (ABNORMAL) Differential, auto (01/28/2025 9:05 AM CASTING MACHINE OPERATOR AUTOMATIC) Pathologist [facility] Neutrophil abs 7.79(H) 1.50 - 6.50 K/cumm Imm gran abs 0.03 0.00 - 0.10 K/cumm [facility] Lymphocyte abs 3.97(H) 0.80 - 3.30 K/cumm [facility] Monocyte abs 0.71 0.20 - 0.80 K/cumm [facility] Eosinophil abs 0.24 0.00 - 0.50 K/cumm [facility] Basophil abs 0.08 0.00 - 0.10 K/cumm [facility] Neutrophil pct 60.8 % [facility] Comment: Interpretive Data Percent cell count reference ranges are not reported, since discordance with absolute values may lead to misinterpretation of CBC data. Current Interpretive Data was last revised on 2017. Imm gran pct 0.2 % [facility] Comment: Interpretive Data Percent cell count reference ranges are not reported, since discordance with absolute values may lead to misinterpretation of CBC data. Current Interpretive Data was last revised on 2017. Lymphocyte pct 31.0 % [facility] Comment: Interpretive Data Percent cell count reference ranges are not reported, since discordance with absolute values may lead to misinterpretation of CBC data. Current Interpretive Data was last revised on 2017. Monocyte pct 5.5 % [facility] Comment: Interpretive Data Percent cell count reference ranges are not reported, since discordance with absolute values may lead to misinterpretation of CBC data. Current Interpretive Data was last revised on 2017. Eosinophil pct 1.9 % [facility] Comment: Interpretive Data Percent cell count reference ranges are not reported, since discordance with absolute values may lead to misinterpretation of CBC data. Current Interpretive Data was last revised on 2017. Basophil pct 0.6 % [facility] Comment: Interpretive Data Percent cell count reference ranges are not reported, since discordance with absolute values may lead to misinterpretation of CBC data. Current Interpretive Data was last revised on 2017. Blood 01/28/2025 9:05 AM CASTING MACHINE OPERATOR AUTOMATIC 01/28/2025 9:09 AM CASTING MACHINE OPERATOR AUTOMATIC us Óscar Gutierrez MD LAB BLOOD ORDERABLES Final Res ult [facility] [address] [facility] [facility] Department [place] [address] * (ABNORMAL) CBC with auto differential (01/28/2025 9:05 AM CASTING MACHINE OPERATOR AUTOMATIC) WBC 12.82(H) 3.80 - 9.90 K/cumm Hgb 12.0(L) 13.0 - 17.5 g/dL [facility] Hct 39.1 38.9 - 50.3 % [facility] Plt 286 150 - 400 K/cumm [facility] MPV 10.0 9.1 - 12.3 fL [facility] RBC 4.11(L) 4.30 - 5.80 M/cumm [facility] MCV 95.1 81.3 - 96.4 fL [facility] MCH 29.2 27.1 - 33.3 pg [facility] MCHC 30.7(L) 32.3 - 35.7 g/dL [facility] RDW CV 13.2 11.1 - 14.9 % [facility] RDW SD 45.7 35.7 - 48.1 fL [facility] NRBC abs 0.00 0.00 - 0.01 K/cumm [facility] Blood 01/28/2025 9:05 AM CASTING MACHINE OPERATOR AUTOMATIC 01/28/2025 9:09 AM CASTING MACHINE OPERATOR AUTOMATIC Narrative [facility] - 01/28/2025 9:14 AM CASTING MACHINE OPERATOR AUTOMATIC Draw before every other infusion. Q16 weeks. Óscar Gutierrez MD LAB BLOOD ORDERABLES Final Res ult Performing Organization Address City/[facility]/ZIP Co de Phone Number [address] [employer] [address] * (ABNORMAL) Erythrocyte sedimentation rate (01/28/2025 9:05 AM CASTING MACHINE OPERATOR AUTOMATIC) [facility] Erythrocyte sedimentation rate 43(H) 1 - 20 mm/hr Blood 01/28/2025 9:05 AM CASTING MACHINE OPERATOR AUTOMATIC 01/28/2025 9:09 AM CASTING MACHINE OPERATOR AUTOMATIC Narrative [facility] - 01/28/2025 9:23 AM CASTING MACHINE OPERATOR AUTOMATIC Draw before every other infusion. Q16 weeks. Óscar Gutierrez MD LAB BLOOD ORDERABLES Final Res ult [address] [employer] [place] [address] * (ABNORMAL) Comprehensive metabolic panel (01/28/2025 9:05 AM CASTING MACHINE OPERATOR AUTOMATIC) [facility] Sodium 140 135 - 145 mmol/L Potassium, pl 4.5 3.3 - 4.9 mmol/L [facility] Chloride 105 97 - 110 mmol/L [facility] CO2 25 22 - 32 mmol/L [facility] Anion gap 10 2 - 15 mmol/L [facility] BUN 28(H) 6 - 25 mg/dL [facility] Creatinine 1.22 0.80 - 1.30 mg/dL [facility] Glucose 116 70 - 199 mg/dL [facility] Comment: Interpretive Data Fasting glucose [...] interpretive data was last revised 2022. Calcium 9.4 8.5 - 10.3 mg/dL [facility] Bilirubin, total 0.3 0.1 - 1.2 mg/dL [facility] Protein, pl 7.8 6.5 - 8.5 g/dL [facility] Albumin 4.2 3.5 - 5.0 g/dL [facility] Alk phos 99 40 - 130 Units/L [facility] ALT 36 7 - 55 Units/L [facility] AST 31 10 - 50 Units/L [facility] Blood 01/28/2025 9:05 AM CASTING MACHINE OPERATOR AUTOMATIC 01/28/2025 9:09 AM CASTING MACHINE OPERATOR AUTOMATIC Narrative [facility] - 01/28/2025 9:44 AM CASTING MACHINE OPERATOR AUTOMATIC Draw before every other infusion. [email or web address] Óscar Gutierrez MD LAB BLOOD ORDERABLES Final Res ult [facility] [address] [facility] [facility] [facility] Department [place] [address] * PSA screen (08/13/2024 6:32 PM CDT) [facility] PSA-Total 0.63 <=6.20 ng/mL Comment: Interpretive Data AGE SEX [...] Current interpretive data last revised 21. Blood 08/13/2024 6:32 PM CDT 08/13/2024 6:32 PM CDT us David Parikh MD LAB BLOOD ORDERABLES Final Result Performing Organization Address City/State/ZIP Co tn Phone Number [facility] [phone] Department [place] [address] * CT Colonoscopy Screening (12/01/2022 9:21 AM [...] it. Electronically signed by: Ruslan Godoy M.D. us Bette Santos MD IM CT PROCEDURES Final Result * COLONOSCOPY (10/21/2022) Historical Provider [facility] Final Result * Abdominal Aortic Aneurysm Screening [...] Kal Juarez D.O. PS: YI Report ID: [id number] Reading Location: [id number] Procedure Note Kal Juarez, DO - 09/22/2021 [...] Kal Juarez D.O. PS: PS Report ID: [id number] Reading Location: [id number] David Parikh MD IMG US PROCEDURES Final [...] GENERAL ORDERABLES Final Result Performing Organization Address City/State/[facility] Phone Number [facility] [phone] [address] Department [place] [address] from Last 3 Months or Most Recently Relevant to Health Maintenance Insurance [facility] [address] [place], [place] [id number] MEDICARE MEDICARE [facility] MEDICARE AARP Advance Directives For more information, please contact: [phone] * Full Code (Latest Code Status on File) Date Activated Date Inactivated Comments 10/21/2022 9:44 AM 10/21/2022 5:08 PM * Full Code Date Activated Date Inactivated Comments 10/21/2022 9:44 AM 10/21/2022 9:44 AM Care Teams Lawyer Probate Relationship Specialty Start Date End Date David Parikh MD [address] [facility] [address] [place] [address] PCP - General Family Medicine 10/31/24 Heriberto Aleman MD [address] [address] Consulting Physician Cardiology 09/03/21 Óscar Gutierrez MD [address] [address] Referring Physician Rheumatology 01/06/22 Laurita Martinez MD [address] [address] Referring Physician Nephrology 08/04/22
--- OUTSIDE RECORDS SUMMARY | 2025-02-15 00:45 | XMS_ITS | Clinical Summary ---
Author Organization [facility] Address [address] [place] [address] Care Team Providers Care Oven Unloader Name Role Phone Unavailable Primary Care Provider Unavailabl e Source Comments [facility],non-owned Affiliates and Associated Physician Practices is amultiple site organization consisting of ambulatory clinics and hospital sitesin [place], [place], [place] and [place]. This disclosure is being madepursuant to the Care Everywhere program and may not contain all information available regarding this patient. Last updated [facility] Allergies No known active allergies Medications * [...] Active Additional Information Patient not taking.Reported on 12/27/2024 hydroxychloroq uine (Plaquenil) 200 MG tablet 2 Active predniSONE (Deltasone) 2.5 MG tablet 2 Active donepezil (Aricept) 5 MG tablet Take 1 (one) tablet by mouth at bedtime 5 11/28/19 26 Active inFLIXimab (Remicade) injection Infuse into a venous catheter every 8 (eight) weeks Active Active Problems Patient Care Coordination No [...] of CABG 08/17/2021 Coronary artery disease involving [place] coronar y artery 08/17/2021 HLD (hyperlipidemia) 08/17/2021 [...] are complete. Avoid live-vaccines unless reviewed with civil engineering project manager first. Rheumatoid arthritis involvi ng multiple sites with positive rheumatoid factor 07/17/2015 Overview (08/19/2021): RHEUMATOID ARTHRITIS Last Assessment & Plan: Chronic, stable on remicade q 6 week infusions. Continue to monitor. Labs today. 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 Gender Identity Not on file Sexual Orientation Not on file Last Filed Vital Signs Vital Sign Reading Time Taken Comments Blood Pressure 123/78 12/27/2024 10:47 AM CDT Pulse 70 12/27/2024 10:47 AM CDT Temperature 36.6 C (97.9 F) 03/31/2022 11:00 AM BALL THREAD MACHINE TENDER Respiratory Rate 18 12/14/2021 8:05 AM CDT Oxygen Saturation 98% 12/27/2024 10:47 AM CDT Inhaled Oxygen Concentration 35% 12/08/2021 3 :00 PM CDT Weight 73.7 kg (162 lb 6.4 oz) 12/27/2024 10:47 AM CDT Height 182.9 cm (6') 12/27/2024 10:47 AM CDT Body Mass Index 22.03 12/27/2024 10:47 AM CDT Plan of Treatment Upcoming Encounters Date Type Department Care Team (Late st Contact Info) Description 06/27/2025 1:40 PM CDT Office Visit [facility] - Neurology [address] [facility], [facility] [place] [address] Caro Downing MD [address] [place] [address] Health Maintenance Due Date Last Done Comments [...] 01/19/2002 ZOSTER VACCINE (1 of 2) 01/19/2002 DEPRESSION SCREENING 03/14/2024 08/16/2021 COVID-19 VACCINE ( - season) 2024 Respiratory Syncytial Virus (RSV) Vaccine Pt: or over 60 yrs (1 - 1-dose 75+ series) 01/19/2027 HEPATITIS C SCREENING Completed 08/19/2021 AAA SCREENING Completed 09/22/2021, 09/22/2021 INFLUENZA VACCINE Completed 12/24/2024, , 02/08/2023, Additional history exists HEPATITIS B VACCINE Aged Out No longe [...] kourtney Non-reac tive 08/19/2021 1:34 PM CDT [facility] Comment:Hepatitis C Antibody screen indicates [...] 12:28 PM CDT 08/19/2021 12:41 PM CDT us Agustin Dennis MD LAB - CHEMISTRY ORDERABLES Final Result [facility] [address] [place] [address], [facility] [phone] from Last 3 Months or Most Recently Relevant to Health Maintenance Insurance MEDICARE [facility] Advance Directives * Full Code (Latest Code [...]
--- OUTSIDE RECORDS SUMMARY | 2025-02-15 00:45 | XMS_ITS | Encounter Summary ---
Author Organization [facility] Address [address] [place] [address] Care Team Providers Care Gyroscopic Engineering Technician Name Role Phone Jose D Stern MD Primary Care Provider [phone] Encounter Details Date Type Department Care Team (Latest Contact Info) Description 03/24/2006 Outpatient Historical HIS [facility] JOHANN Alva, Priscilla Mendez MD [address] [place] [phone] Coronary Atherosclerosis of [place] Coronary Artery (Primary Dx) Social History Tobacco Use Types Packs/Day Years Used Date Smoking Tobacco: Never Assessed Sex and Gender Information Value Date Recorded Sex Assigned at Not on file Legal Sex Male 5:07 AM HOME ECONOMIST Gender Identity Not on file Sexual Orientation Not on file documented as of this encounter Plan of Treatment Not on file documented as of this encounter Visit Diagnoses Diagnosis Coronary atherosclerosis of [place] coronary artery- Primary documented in this encounter Care Teams Gyroscopic Engineering Technician Relationship Specialty Start Date End Date Jose D Stern MD [address] [place] [address] PCP - General 02/21/06 documented as of this encounter
--- OUTSIDE RECORDS SUMMARY | 2025-02-15 00:45 | XMS_ITS | Encounter Summary ---
Author Organization [facility] Address [address] [place] [address] Care Team Providers Care Bookkeeper Receptionist Name Role Phone Jose D Stern MD Primary Care Provider [phone] Encounter Details Date Type Department Care Team (Late st Contact Info) Description 02/25/2006 Outpatient Historical [facility] Support [facility]. ([facility]) [address] 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
--- OUTSIDE RECORDS SUMMARY | 2025-02-15 00:45 | XMS_ITS | Clinical Summary ---
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
--- OUTSIDE RECORDS SUMMARY | 2025-02-15 00:45 | XMS_ITS | Encounter Summary ---
Author Organization [facility] Address [address] [place] [address] Care Team Providers Care Chemical Instrumentation Officer Name Role Phone Jose D Stern MD Primary Care Provider [phone] Encounter Details Date Type Department Care Team (Late st Contact Info) Description 03/24/2006 Outpatient Historical [facility] Cardiovas and Thor S[facility] at [facility] [address] [facility] [address] [place] [address] Priscilla Alva MD [address] [facility] [address] [place] [address] Social History Tobacco Use Types Packs/Day Years Used Date Smoking Tobacco: Never Assessed Sex and Gender Information Value Date Recorded Sex Assigned at Not on file 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
[2025-02-15 09:58] VITALS: BP 103/68; PULSE 103; RESP 18; TEMP 36.6; O2SAT 100
--- NOTE | 2025-02-15 10:01 | P.PNAN_ITS ---
Anes - Initial Pre Proc Eval Procedure: Operation Date: 02/15/25 11:15 Proposed Procedures p EGD & Diagnostic Colonoscopy - Paul Charles MD Date/Time: 02/15/25 10:01 Surgeon: Paul Charles MD Pre Op Diagnosis: Diverticulitis of large intestine with perforation Patient Data Age: 75 Gender: M Height: 1.83 m Weight: 69.2 kg Last Vital Signs Temp 97.9 F 02/15/25 09:58 Pulse 103 H 02/15/25 09:58 Resp 18 02/15/25 09:58 BP 103/68 02/15/25 09:58 Pulse Ox 100 02/15/25 09:58 O2 Del Method Room Air 02/15/25 09:58 Allergies Allergy/AdvReac Type Severity Reaction Status Date / Time No Known Allergies Allergy Verified 01/24/25 14:05 Home Medications ?Medication ?Instructions ?Recorded ?Confirmed ?Type aspirin 81 mg tablet,delayed 81 mg PO DAILY 05/21/19 1 04/18/24 History release nitroglycerin 0.4 mg sublingual 0.4 mg sublingual ONCE PRN Chest 05/21/19 01/24/25 History tablet (Nitrostat) Pain Held on 01/24/25. Instructions: Patient no longer taking atorvastatin 40 mg tablet 40 mg PO DAILY 01/08/2208/05 History hydroxychloroquine 200 mg tablet 200 mg PO DAILY #90 t abs 07/19/23 02/15/25 Rx (Plaquenil) Patient hx anesthesia problems: none Family hx anesthesia problems: none Results Review: All pre-operative results and documents have been reviewed as part of the pre- operative evaluation. [facility] Past Medical History Medical History BMI 23.0-23.9, adult Renal insufficiency ESR raised Rheumatoid arthritis Treated with Remicade infusions and takes daily low-dose prednisone. GERD (gastroesophageal reflux disease) Hyperlipidemia History of angina Myocardial infarction Surgical History Surgical History History of cardiac catheterization Hx of CABG triple bypass H/O colonoscopy Family History Family History Mother Carcinoma of colon Father Family history of malignant melanoma Sibling Acute myocardial infarction Social History Social History Social History: Patient is . He is a full code. He is a former smoker but cannot tell me how much or for how long he smoked. He also has previous alcohol use but will not quantify. Smoking packs per day: 1 Smoking cigarettes per day: 20.0 Years smoked: 35 Smoking pack-years: 35.00 Smoking status: Current every day smoker Tobacco type: cigarettes Second hand tobacco smoke exposure: No Smoking end date: 03/14/94 Additional smoking assessment comments: pt was very vague with his smoking history 0.5 - 1 pkg/day started in teens Alcohol intake: never Substance use: never Substance use type: does not use Lack of Transportation: No Lack of Food: Never True Current Housing: I Have Housing Concerned About Future Housing: No Difficulty Paying Gas/Electric Bills: No Difficulty Paying for Meds: No Currently Unemployed: No Education: High School Diploma/GED Difficulty w/ Childcare or Family Care: YES Living arrangements: alone Occupation/Education: retired Additional occupation/education comments: He is retired from [employer]. Gender identity (if verbalized by the patient): Male Spiritual care concerns: No Agree to blood products: Yes Anes - Eval Final PreProcedure Day of Procedure 02/15/25 10:01 Patient weight: normal Lungs: normal air movement Airway: Mallampati scale class II Neurological: alert and oriented Last oral intake: >/= 8 hours ASA classification: III Emergent: no Anesthetic plan: proceed Anesthesia type and monitoring: general GIVS and standard monitoring Results Review: All pre-operative results and documents have been reviewed as part of the pre- operative evaluation. Hx reviewed, hx CABG/AVR, RA, ex smoker, pt doing well without cp or sob. Informed Consent: The patient's anesthetic plan and its attendant risks and benefits were discussed with the patient/family/POA. Questions were solicited and answers provided to the satisfaction of the patient/family/POA.
[2025-02-15] MEDS: LACTATED RINGERS 1,000 ML 150 ML IV CONT (10:19)
--- NOTE | 2025-02-15 10:31 | P.HP_ITS ---
H&P: HPI History of Present Illness Date/Time: 02/15/25 10:31 Chief Complaint: Family history of colon cancer-GERD Narrative: The patient has occasional GERD and is referred for EGD. He denies dysphagia, or unintentional weight loss. In addition, his mother of colorectal cancer and he is referred for colonoscopy. His last colonoscopy was around 3 years ago, not sure about the findings. No records available. Review of Systems Review of Systems: All systems reviewed & are unremarkable except as noted in HPI and below PMFSH Past Medical History Medical History BMI 23.0-23.9, adult Renal insufficiency ESR raised Rheumatoid arthritis Treated with Remicade infusions and takes daily low-dose prednisone. GERD (gastroesophageal reflux disease) Hyperlipidemia History of angina Myocardial infarction Surgical History Surgical History History of cardiac catheterization Hx of CABG triple bypass H/O colonoscopy Family History Family History Mother Carcinoma of colon Father Family history of malignant melanoma Sibling Acute myocardial infarction Social History Social History Social History: Patient is . He is a full code. He is a former smoker but cannot tell me how much or for how long he smoked. He also has previous alcohol use but will not quantify. Smoking packs per day: 1 Smoking cigarettes per day: 20.0 Years smoked: 35 Smoking pack-years: 35.00 Smoking status: Current every day smoker Tobacco type: cigarettes Second hand tobacco smoke exposure: No Smoking end date: 03/14/94 Additional smoking assessment comments: pt was very vague with his smoking history 0.5 - 1 pkg/day started in teens Alcohol intake: never Substance use: never Substance use type: does not use Lack of Transportation: No Lack of Food: Never True Current Housing: I Have Housing Concerned About Future Housing: No Difficulty Paying Gas/Electric Bills: No Difficulty Paying for Meds: No Currently Unemployed: No Education: High School Diploma/GED Difficulty w/ Childcare or Family Care: YES Living arrangements: alone Occupation/Education: retired Additional occupation/education comments: He is retired from [email or web address]. Gender identity (if verbalized by the patient): Male Spiritual care concerns: No Agree to blood products: Yes Meds Home Medications and Allergies Home Medications ?Medication ?Instructions ?Recorded ?Confirmed ?Type aspirin 81 mg tablet,delayed 81 mg PO DAILY 05/21/19 1 04/18/24 History release nitroglycerin 0.4 mg sublingual 0.4 mg sublingual ONCE PRN Chest 05/21/19 01/24/25 History tablet (Nitrostat) Pain Held on 01/24/25. Instructions: Patient no longer taking atorvastatin 40 mg tablet 40 mg PO DAILY 01/08/2208/05 History hydroxychloroquine 200 mg tablet 200 mg PO DAILY #90 t abs 07/19/23 02/15/25 Rx (Plaquenil) Allergies Allergy/AdvReac Type Severity Reaction Status Date / Time No Known Allergies Allergy Verified 01/24/25 14:05 Vital Signs Vital Signs - 24 hr 02/15/25 09:58 Temperature 97.9 F Pulse Rate 103 H Respiratory Rate 18 Blood Pressure 103/68 Pulse Oximetry 100 Oxygen Delivery Room Air Exam Const: General: cooperative and healthy appearing Resp: Effort & Inspection: normal respiratory effort and able to speak in complete sentences Auscultation: clear to auscultation bilaterally Cardio: Rate: regular rate Rhythm: regular rhythm GI: Inspection: normal to inspection GI Palp: No No hepatosplenomegaly present Auscultation: normal bowel sounds Rectal Exam: deferred Skin: General skin exam: normal color Psych: Appearance: grossly normal Mental Status: mental status grossly norm al Assessment and Plan Assessment and plan (1) GERD (gastroesophageal reflux disease): Qualifiers: Esophagitis presence: esophagitis presence not specified Qualified Code(s): K21.9 - Gastro-esophageal reflux disease without esophagitis Code(s): K21.9 - Gastro-esophageal reflux disease without esophagitis Status: Acute Assessment and Plan: The patient is deemed a good candidate for the procedures. Consent signed. Will proceed. (2) Family history of colon cancer: Code(s): Z80.0 - Family history of malignant neoplasm of digestive organs Status: Acute Prior Studies I have reviewed the following patient records and this information was taken into consideration when formulating the assessment and plan.: previous labs, previous ER visits, previous hospitalizations and previous clinic visits
[2025-02-15] MEDS: SIMETHICONE ORAL SUSPENSION 20 MG/0.3 ML 30 ML BOTTLE 1.8 ML PO (10:39)
--- NOTE | 2025-02-15 11:00 | SUR.OPER ---
EGD ended 105 colonoscopy started 110
--- NOTE | 2025-02-15 11:01 | S_PTH ---
PATIENT: Tomy Castellanos LOC: [facility] #:[id number] AGE/SX: 75/M ROOM: RE02/15/[address]: Paul Charles MD : 1950 BED: DIS: 02/15/2025 SPEC #: [id number] RECD: 02/15/25 14:03 STATUS: INEZ REQ #: [id number] NANCY: 02/15/25 11:[address]: Paul Charles DEPT: [facility] [place] Surgical RECD BY: Gay Moore ENTERED: 02/15/25 14:04 SP TYPE: Surgical OTHR DR: David ParikhMD Tissues: A - Biopsy B - Biopsy C - Biopsy Procedures: Hematoxylin and Eosin Stain Gross and Microscopic Level 4
--- NOTE | 2025-02-15 11:16 | SUR.OPER ---
Dr. Charles requested an EGD scope to continue the colonoscopy because of difficulty with colon scope
[2025-02-15 11:28] VITALS: BP 94/58; PULSE 74; RESP 18; O2SAT 100
[2025-02-15 11:38] VITALS: BP 104/67; PULSE 69; RESP 17; O2SAT 97
[2025-02-15 11:48] VITALS: BP 108/67; PULSE 70; RESP 15; O2SAT 99
--- NOTE | 2025-02-15 12:15 | SUR.PHASEII ---
Pt discharged and taken to radiology for an air contrast barium enema as ordered.
== END 2025-02-15 12:15 | disposition home or self-care (01) ==
PROVIDERS: PCP Family Medicine; Referring Provider Family Medicine; Visit Provider Internal Medicine Gastroenterology
PROC: 0DJ08ZZ Inspection of Upper Intestinal Tract, Via Natural or Artificial Opening Endoscopic (ICD-10-PCS; CPT 45378; principal; 2025-02-15 11:15)
DX: Z12.11 Encounter for screening for malignant neoplasm of colon (principal); Q43.8 Other specified congenital malformations of intestine; K57.30 Diverticulosis of large intestine without perforation or abscess without bleeding; Z80.0 Family history of malignant neoplasm of digestive organs; K21.9 Gastro-esophageal reflux disease without esophagitis; K44.9 Diaphragmatic hernia without obstruction or gangrene; K22.70 Barrett's esophagus without dysplasia; K29.80 Duodenitis without bleeding; Z87.891 Personal history of nicotine dependence
CPT/HCPCS: 43239; G0105; 74270; 88305; J2003; J2704; J7120